=== PATIENT | male | born 1945 | race Caucasian/White ===

== ENCOUNTER 2019-11-26 11:11 | Inpatient (IN) ==
--- NOTE | 2019-11-26 11:55 | Emergency Department Note ---
History of Present Illness General Chief complaint: Neuro Symptoms/Deficit Stated complaint: NEURO SX, REF'D BY FITZ Time Seen by Provider: 11/26/19 11:37 Source: patient Mode of arrival: ambulatory History of Present Illness Maximum Pain Intensity: 0 This patient was sent over from his primary care physician's office after having a visual change in the right eye and concern for stroke. This started on Saturday and so he is about 4 days out now and is outside of the TPA or acute intervention window. 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 Denies headache or fall or tra augie. No difficulty speaking or swallowing. No numbness or weakness. He does have severe rheumatoid arthritis in his hands but says that his function is not different than normal. Denies neck pain or stiffness. No exposure to COVID. No fever chills. No nausea vomiting or diarrhea. No urinary symptoms. Home Medications Home Medications Medication Instructions Recorded Confirmed Type amlodipine 5 mg PO BID 08/06/19 11/26/19 History losartan 50 mg PO QAM 08/06/19 11/26/19 History metoprolol succinate 25 mg PO QPM 08/06/19 11/26/19 History naproxen [Naprosyn] 500 mg PO QAM 08/06/19 11/26/19 History omega 2-mpe-syb-fish oil [Fish Oil] 1 cap PO QAM 08/06/19 11/26/19 History prednisone 1 mg PO QAM 08/06/19 11/26/19 History prednisone 2 mg PO QPM 08/06/19 11/26/19 History rosuvastatin 40 mg PO QAM 08/06/19 11/26/19 History Allergies Allergy/AdvReac Type Severity Reaction Status Date / Time No Known Allergies Allergy Verified 11/26/19 12:19 Past Med/Surg History Medical History Chronic kidney disease stage III Chronic steroid use for RA History of blood clots X1 PINCHING SCIATIC NERVE, HX BACK SURGERY FOR...NO PROBLEMS SINCE Hyperlipidemia Hypertension Ischemic cardiomyopathy Most recent EF 40-44%. Follows with Dr. Kendrick. 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 Beliefs That Will Affect Care: None Current Living Situation: Spouse Other Information That Helps Us Care for You: No Feels Safe at Home: Yes Safety Concerns: Feels Safe At This Time Smoking Status: Former smoker Second Hand Exposure: Yes ; Hx Alcohol Use: No Hx Substance Use: No Review of Systems A total of 10 systems reviewed and were otherwise negative Physical Exam Vital Signs Vital Signs - 24 hr 11/26/19 11:15 11/26/19 11:25 11/26/19 12:32 Temperature 36.9 C Temperature Source Oral Pulse Rate 64 57 L 50 L Pulse Rate from SpO2 Sensor 50 L Respiratory Rate 18 21 14 Blood Pressure 134/85 191/96 H 190/88 H Blood Pressure Mean 101 123 111 Pulse Oximetry 97 97 Oxygen Delivery Method Room Air Room Air Sepsis Recent Fever Within 48 Hours No Sepsis New/Unexplained Change in Mental Status No Sepsis Action Taken by Nursing No Action Required 11/26/19 13:00 Temperature Temperature Source Pulse Rate 50 L Pulse Rate from SpO2 Sensor 49 L Respiratory Rate 16 Blood Pressure 166/84 H Blood Pressure Mean 104 Pulse Oximetry 95 Oxygen Delivery Method Room Air Sepsis Recent Fever Within 48 Hours Sepsis New/Unexplained Change in Mental Status Sepsis Action Taken by Nursing General: Well developed well nourished older male who appears in no acute distress, breathing comfortably on room air. Normal speech HEENT: Normal cephalic atraumatic. Pupils are equal round and reactive to light. Extraocular movements are intact. He does have a visual field cut in the right eye laterally when I checked his vision with moving fingers. Oropharynx is pink with moist mucous membranes. No swelling of the mouth lips or tongue. Neck: Supple with a midline trachea. No meningeal signs or stiffness, no JVD or bruits. No Stridor. Chest: Clear to auscultation bilaterally. No wheezes or rhonchi. No increased work of breathing. Heart: Regular rate and rhythm without murmurs or gallops. Abdomen: Soft nontender, nondistended without rebound guarding or rigidity. Extremities: No cyanosis clubbing or edema. No calf tenderness or assymetry. Chronic changes in the hands consistent with rheumatoid arthritis Spine/Back. Non tender to palpation. No CVA tenderness Skin: Good turgor without rashes. Neurologic exam: Cranial nerves two through 12 are intact. Motor and sensation are intact and symmetrical throughout. Course Administered Medications Gadobutrol (Gadavist 65ml) 6 ml IV ONCE PRN PRN Reason: Interaction Checking Stop: 11/30/19 14:20 Last Admin: 11/26/19 14:22 Dose: 6 ml Documented by: [id number] Heparin Sodium (Porcine) (Heparin Sodium (Porcine)) 5,000 units SQ Q8 AMOR Stop: 12/26/19 15:59 Last Admin: 11/26/19 17:26 Dose: 5,000 units Documented by: [id number] Cosigned by: [id number] Sodium Chloride (Nss 1000ml) 1,000 mls @ 80 mls/hr IV .[id number] AMOR Stop: 11/27/19 05:59 Last Admin: 11/26/19 17:27 Dose: 80 mls/hr Documented by: [id number] Discontinued Medications Amlodipine Besylate (Norvasc) 5 mg PO NOW ONE Stop: 11/26/19 17:17 Last Admin: 11/26/19 17:27 Dose: 5 mg Documented by: [id number] Aspirin (Aspirin Chew) 324 mg PO NOW STA Stop: 11/26/19 13:07 Last Admin: 11/26/19 13:19 Dose: 324 mg Documented by: [id number] Medical Decision Making Differential Diagnosis CVA, TIA, intracranial hemorrhage, retinal detachment, vitreous hemorrhage, optic neuritis, electrolyte or metabolic abnormalities Medical Records Attestation: I reviewed the patient's medical records. Home Medications Current Medication List: was personally reviewed by me Laboratory Data Attestation: I reviewed the patient's lab results. Result diagrams: 11/26/19 11:30 11/26/19 11:30 Lab Results 11/26/19 11/26/19 11/26/19 Range/Units 11:30 11:30 11:30 WBC 10.32 (4.8-10.8) K/uL RBC 5.39 (4.7-6.1) M/uL Hgb 16.7 (14.0-18.0) g/dL Hct 48.9 (42-52) % MCV 90.7 (80-100) fL MCH 31.0 (25-34) pg MCHC 34.2 (32-36) g/dL RDW Std Deviation 44.5 (36.4-46.3) fL RDW Coeff of Bright 13.5 (11.5-14.5) % Plt Count 227 (130-400) K/uL MPV 10.0 (7.4-10.4) fL Immature Gran % (Auto) 0.2 % Neut % (Auto) 80.0 % Lymph % (Auto) 10.1 % [place] % (Auto) 6.6 % Eos % (Auto) 2.7 % Baso % (Auto) 0.4 % Neut # (Auto) 8.26 H (1.4-6.5) K/uL Lymph # (Auto) 1.04 L (1.2-3.4) K/uL [place] # (Auto) 0.68 H (0.11-0.59) K/uL Eos # (Auto) 0.28 (0-0.5) K/uL Baso # (Auto) 0.04 (0-0.2) K/uL Immature Gran # (Auto) 0.02 (0.00-0.02) K/uL PT 10.4 (9.0-12.0) Seconds INR 1.0 (0.9-1.1) APTT 31.8 H (21.0-31.0) Seconds PTT Ratio 1.1 Sodium 141 (136-145) mmol/L Potassium 4.3 (3.5-5.1) mmol/L Chloride 110 H (98-107) mmol/L Carbon Dioxide 25 (21-32) mmol/L Anion Gap 6.0 (3-11) BUN 28 H (7-18) mg/dl Creatinine 1.84 H (0.6-1.4) mg/dl Est Cr Clr Drug Dosing 27.5 ml/min Est GFR ( Amer) 40.4 Est GFR (Non-Af Amer) 34.8 BUN/Creatinine Ratio 15.0 (10-20) Glucose 89 (70-99) mg/dl Estimat Average Glucose mg/dl Hemoglobin A1c (4.5-5.6) % Calcium 8.8 (8.5-10.1) mg/dl Magnesium 2.1 (1.8-2.4) mg/dl Total Bilirubin 0.7 (0.2-1) mg/dl AST 26 (15-37) U/L ALT 27 (12-78) U/L Alkaline Phosphatase 73 (45-117) U/L Troponin I < 0.015 (0-0.045) ng/ml Total Protein 7.6 (6.4-8.2) gm/dl Albumin 3.6 (3.4-5.0) gm/dl Globulin 4.0 (2.5-4.0) gm/dl Albumin/Globulin Ratio 0.9 (0.9-2) 06/25/20 Range/Units 11:30 WBC (4.8-10.8) K/uL RBC (4.7-6.1) M/uL Hgb (14.0-18.0) g/dL Hct (42-52) % MCV (80-100) fL MCH (25-34) pg MCHC (32-36) g/dL RDW Std Deviation (36.4-46.3) fL RDW Coeff of Bright (11.5-14.5) % Plt Count (130-400) K/uL MPV (7.4-10.4) fL Immature Gran % (Auto) % Neut % (Auto) % Lymph % (Auto) % [place] % (Auto) % Eos % (Auto) % Baso % (Auto) % Neut # (Auto) (1.4-6.5) K/uL Lymph # (Auto) (1.2-3.4) K/uL [place] # (Auto) (0.11-0.59) K/uL Eos # (Auto) (0-0.5) K/uL Baso # (Auto) (0-0.2) K/uL Immature Gran # (Auto) (0.00-0.02) K/uL PT (9.0-12.0) Seconds INR (0.9-1.1) APTT (21.0-31.0) Seconds PTT Ratio Sodium (136-145) mmol/L Potassium (3.5-5.1) mmol/L Chloride (98-107) mmol/L Carbon Dioxide (21-32) mmol/L Anion Gap (3-11) BUN (7-18) mg/dl Creatinine (0.6-1.4) mg/dl Est Cr Clr Drug Dosing ml/min Est GFR ( Amer) Est GFR (Non-Af Amer) BUN/Creatinine Ratio (10-20) Glucose (70-99) mg/dl Estimat Average Glucose 117 mg/dl Hemoglobin A1c 5.7 H (4.5-5.6) % Calcium (8.5-10.1) mg/dl Magnesium (1.8-2.4) mg/dl Total Bilirubin (0.2-1) mg/dl AST (15-37) U/L ALT (12-78) U/L Alkaline Phosphatase (45-117) U/L Troponin I (0-0.045) ng/ml Total Protein (6.4-8.2) gm/dl Albumin (3.4-5.0) gm/dl Globulin (2.5-4.0) gm/dl Albumin/Globulin Ratio (0.9-2) Imaging Data Attestation: I personally reviewed and interpreted this imaging study as follows: Radiologist's Impression: CT SCAN OF THE BRAIN WITHOUT IV CONTRAST CLINICAL HISTORY: Strokelike symptoms. COMPARISON STUDY: CT and MRI of the brain dated 11/09/2012. TECHNIQUE: Unenhanced axial CT scan of the brain is performed from the vertex to the skull base. A dose lowering technique was utilized adhering to the principles of ALARA. CT DOSE: 537.48 mGy.cm FINDINGS: Brain parenchyma: There are age-related involutional changes noting mild subcortical and periventricular microangiopathic change. Left occipital encephalomalacia is consistent with a remote infarct. There is no hemorrhage, mass effect, or evidence of acute territorial ischemia by CT criteria. Valdes- white matter differentiation is preserved. No extra-axial fluid collection is seen. Ventricles, sulci, cisterns: Prominent secondary to involutional change. Intracranial vasculature: There is atherosclerotic calcification of the cavernous carotid and vertebral arteries. Calvarium: Unremarkable. Sinuses and mastoids: The visualized paranasal sinuses are clear. The mastoid air cells are well pneumatized. Orbits: The bony orbits are grossly intact. There are bilateral ocular lens implants. IMPRESSION: 1. There is no hemorrhage, mass effect, or evidence of acute territorial ischemia by CT criteria. 2. Left occipital encephalomalacia is consistent with a remote infarct. This is new from the 2013 examinations. ECG Data Attestation: I personally reviewed and interpreted this ECG as follows: Indication: + weakness Rate (beats per minute): 53 Rhythm: + sinus bradycardia ECG Intervals/blocks: + Normal QT and + Normal [place] ECG [place]: + Normal ECG ST segments: + Normal ST segments and + T-wave inversions (Diffuse ST and T wave abnormalities are significantly improved compared to November 23, 2019) ECG Findings: no PACs and no PVCs Blood Pressure Blood Pressure Findings: Normal blood pressure Blood Pressure Disposition: elevated BP felt to be situational MDM Narrative This patient was sent over from doctor's office having visual change in the right in the lateral aspect. He looks well and has no other symptoms otherwise. IV access was established and he was placed on a night monitor a full cardiac work-up was obtained as well as neurologic work-up. He was reassessed frequently. CAT scan of his head does show an old occipital infarct that is new since the most recent CAT scan. I do not think it likely explains today symptoms however if he has had one he may have had extension or further infarct I do think he needs a full cardiac work-up. At this point, he is outside the window for acute intervention or TPA is been going on for several days. He has no significant electrolyte or metabolic abnormality. he has nothing to suggest acute coronary syndrome or arrhythmia. I did consult the [facility] hospitalist as I do think he should be admitted/observed for further cardiac work-up. Continuous cardiac monitoring. An order was placed for continuous cardiac monitoring. He was noted to be in sinus bradycardia at a rate of 55. Impression & Plan Acute CVA (cerebrovascular accident), Change in vision, Rheumatoid arteritis, Chronic steroid use Discharge Plan Visit Data *Final* Discharge Date/Time: 11/26/19 15:10 Chief Complaint: Neuro Symptoms/Deficit Stated Complaint: NEURO SX, REF'D BY FITZ ED Provider: Kvng Quintero Discharge Problem: Acute CVA (cerebrovascular accident), Change in vision, Rheumatoid arteritis, Chronic steroid use Patient Disposition: Admitted As Inpatient Discharge Instructions Interventions: ED Discharge Assessment Last Done: 11/26/19 15:10
[2019-11-26 11:59] LABS: Basophils # (auto) 0.04 K/uL (0-0.2); Basophils % (auto) 0.4 %; Eosinophils # (auto) 0.28 K/uL (0-0.5); Eosinophils % (auto) 2.7 %; Hematocrit (blood only) 48.9 % (42-52); Hemoglobin 16.7 g/dL (14.0-18.0); Immature Granulocytes # (auto) 0.02 K/uL (0.00-0.02); Immature Granulocytes % (auto) 0.2 %; Lymphocytes # (auto) 1.04 K/uL (1.2-3.4); Lymphocytes % (auto) 10.1 %; Mean Corpuscular Hgb Conc 34.2 g/dL (32-36); Mean Corpuscular Volume 90.7 fL (80-100); Monocytes # (auto) 0.68 K/uL (0.11-0.59); Monocytes % (auto) 6.6 %; Neutrophils # (auto) 8.26 K/uL (1.4-6.5); Platelet Count 227 K/uL (130-400); RDW Coefficient of Variation 13.5 % (11.5-14.5); RDW Standard Deviation 44.5 fL (36.4-46.3); Red Blood Count 5.39 M/uL (4.7-6.1); White Blood Count 10.32 K/uL (4.8-10.8)
--- NOTE | 2019-11-26 12:06 | CT Scan Report ---
CT SCAN OF THE BRAIN WITHOUT IV CONTRAST CLINICAL HISTORY: Strokelike symptoms. COMPARISON STUDY: CT and MRI of the brain dated 11/09/2012. TECHNIQUE: Unenhanced axial CT scan of the brain is performed from the vertex to the skull base. A do se lowering technique was utilized adhering to the principles of ALARA. CT DOSE: 537.48 mGy.cm FINDINGS: Brain parenchyma: There are age-related involutional changes noting mild subcortical and periventric ular microangiopathic change. Left occipital encephalomalacia is consistent with a remote infarct. Th ere is no hemorrhage, mass effect, or evidence of acute territorial ischemia by CT criteria. Valdes-whi te matter differentiation is preserved. No extra-axial fluid collection is seen. Ventricles, sulci, cisterns: Prominent secondary to involutional change. Intracranial vasculature: There is atherosclerotic calcification of the cavernous carotid and vertebr al arteries. Calvarium: Unremarkable. Sinuses and mastoids: The visualized paranasal sinuses are clear. The mastoid air cells are well pneu matized. Orbits: The bony orbits are grossly intact. There are bilateral ocular lens implants. IMPRESSION: 1. There is no hemorrhage, mass effect, or evidence of acute territorial ischemia by CT criteria. 2. Left occipital encephalomalacia is consistent with a remote infarct. This is new from the 2013 exa minations. ACT 112: Negative or not required by law. Electronically signed by: Chase Cantu M.D. 11/26/2019 12:05 PM
[2019-11-26 12:07] LABS: Alanine Aminotransferase 27 U/L (12-78); Albumin Level 3.6 gm/dl (3.4-5.0); Aspartate Aminotransferase 26 U/L (15-37); Blood Urea Nitrogen 28 mg/dl (7-18); Calcium 8.8 mg/dl (8.5-10.1); Carbon Dioxide 25 mmol/L (21-32); Chloride 110 mmol/L (98-107); Creatinine Clr Calc Pharmacy 27.5 ml/min; Est GFR (African American) 40.4; Est GFR (Non-African American) 34.8; Glucose 89 mg/dl (70-99); Magnesium 2.1 mg/dl (1.8-2.4); Potassium 4.3 mmol/L (3.5-5.1); Sodium 141 mmol/L (136-145)
[2019-11-26 12:12] LABS: Albumin Globulin Ratio 0.9 (0.9-2); Alkaline Phosphatase 73 U/L (45-117); Bilirubin,Total 0.7 mg/dl (0.2-1); Total Protein 7.6 gm/dl (6.4-8.2); Troponin I < 0.015 ng/ml (0-0.045)
[2019-11-26 12:13] LABS: Partial Thromboplastin Ratio 1.1; Partial Thromboplastin Time 31.8 Seconds (21.0-31.0); Prothrombin Time 10.4 Seconds (9.0-12.0)
[2019-11-26] MEDS ORDERED: ASPIRIN 81 MG CHEW PO STA (13:06)
[2019-11-26] MEDS ORDERED: POLYETHYLENE (MIRALAX) 17 GM PACK PO PRN (13:25)
[2019-11-26] MEDS ORDERED: ACETAMINOPHEN 325 MG TAB PO PRN (13:25)
[2019-11-26] MEDS ORDERED: ALUMINUM/MAGNESIUM SUSP 30 ML UDC PO PRN (13:25)
[2019-11-26] MEDS ORDERED: MAGNESIUM HYDROXIDE SUSP 30 ML UDC PO PRN (13:25)
[2019-11-26] MEDS ORDERED: ONDANSETRON INJ 2 MG/ML 2 ML VIAL IV PRN (13:25)
[2019-11-26] MEDS ORDERED: PHARMACIST DISCHARGE MED REC CONSULT PRN (13:29)
--- NOTE | 2019-11-26 13:35 | Neurology Consultation ---
Date of Consultation November 26, 2019 Assessment & Plan (1) Hypertension: (2) Acute ischemic left posterior cerebral artery (ALGORITHM DEVELOPER) stroke: A 74 year old male with past medical Hx significant for HTN, CKD, and rheumatoid arthritis on Prednisone admitted with a subacute left ALGORITHM DEVELOPER ischemic stroke. Etiology concerning for embolic source. On examination patient has RA arthritic changes in his hands and feet as well as a right visual field cut. I advised him he should NOT be driving due to his recent stroke. HA1c 5.7. UA Negative. - Recommend MRA head and neck imaging without contrast due to CKD. - Recommend dual antiplatelet therapy for 21-days for now, ASA 81 mg daily and Plavix 75 mg daily then ASA 81 mg daily. - Continue home high intensity Statin, Crestor 40 mg daily - Recommend checking TSH and lipid panel if not already ordered. - Recommend TTE with shunt as well as telemetry. May need to consider cardiac monitoring pending results of the above testing - Recommend normotension, Goal SBP<140, DBP < 90 mm hg - Will need formal VF testing as outpatient with ophthalmology - Neuro checks, VS Q4hr - PT/OT/SS Dr. Jo Ann Cade will be taking over the Neurology consultation service tomorrow. Patient will need follow up with Neurology in 8-weeks with myself or Jo Ann Esteban PA-C. I provided him with my contact information. (3) Right homonymous hemianopsia: (4) Rheumatoid arthritis: History of Present Illness Reason for Consultation: Right visual field deficit Requesting Physician: Dr. Golden Attending Physician: A 74-year-old male with a history of hypertension, hyperlipidemia, and rheumatoid arthritis on prednisone admitted from the emergency department with concern for acute right visual field loss. Symptom onset was 2-3 days ago noted well cutting grass. Denies any history of similar symptoms. His evaluated his PCP office today and sent over to the ED for concern for stroke. CT head noncontrast shows a left ALGORITHM DEVELOPER ischemic stroke which is new from 2012. Neurology was consulted for further evaluation. No prior known history of CVA. He is not on aspirin at home. Former smoker. Denies Hx of [place]. History of Present Illness A 74-year-old male with a history of hypertension, hyperlipidemia, chronic kidney disease,and rheumatoid arthritis on prednisone admitted from the emergency department with concern for acute right visual field loss. Symptom onset was 4 days ago noted well cutting grass. Denies any history of similar symptoms. His evaluated his PCP office today and sent over to the ED for concern for stroke. CT head noncontrast shows a left ALGORITHM DEVELOPER ischemic stroke which is new from 2012. Neurology was consulted for further evaluation. Allergies Allergy/AdvReac Type Severity Reaction Status Date / Time No Known Allergies Allergy Verified 11/26/19 12:19 Home Medications Home Medications Medication Instructions Recorded Confirmed Type amlodipine 5 mg PO BID 08/06/19 11/26/19 History losartan 50 mg PO QAM 08/06/19 11/26/19 History metoprolol succinate 25 mg PO QPM 08/06/19 11/26/19 History naproxen [Naprosyn] 500 mg PO QAM 08/06/19 11/26/19 History omega 1-twe-tse-fish oil [Fish Oil] 1 cap PO QAM 08/06/19 11/26/19 History prednisone 1 mg PO QAM 08/06/19 11/26/19 History prednisone 2 mg PO QPM 08/06/19 11/26/19 History rosuvastatin 40 mg PO QAM 08/06/19 11/26/19 History Patient History Medical History Chronic kidney disease stage III Chronic steroid use for RA History of blood clots X1 PINCHING SCIATIC NERVE, HX BACK SURGERY FOR...NO PROBLEMS SINCE Hyperlipidemia Hypertension Ischemic cardiomyopathy Most recent EF 40-44%. Follows with Dr. Kendrick. Rheumatoid arthritis follows with [facility] Surgical History History of back surgery History of elbow surgery RIGHT History of hernia surgery Family History Brother Family history of diabetes mellitus Mother Family history of diabetes mellitus Social History Preferred Language: Danish Communication Ability: Effective Physician Relations Specialist Required: No Beliefs That Will Affect Care: None Current Living Situation: Spouse Other Information That Helps Us Care for You: No Feels Safe at Home: Yes Safety Concerns: Feels Safe At This Time Smoking Status: Former smoker Second Hand Exposure: Yes ; Hx Alcohol Use: No Hx Substance Use: No Physical Exam Physical Exam: Constitutional: appears chronically ill, pleasant, no distess. developed Face: normocephalic and atraumatic Eyes: normal lids, normal conjunctiva Neck: supple Respiratory: normal effort Cardiovascular: normal pulses Abdomen: non distended Skin: no rash noted Psychiatric: normal mood and normal affect NEUROLOGIC EXAMINATION: Appearance: no acute distress Orientation: awake, alert and oriented x 3 Mental Status: alert Attention: normal Knowledge: poor Language: mild word finding difficulty, speech is non fluent Speech: no dysarthria Cranial Nerves: CN 2 - right homonymous hemianopia and pupils round, equal, reactive to light CN 3, 4, 6 - extra-ocular movements intact CN 5 - facial sensation intact CN 7 - no facial asymmetry CN 8 - intact hearing CN 9, 10 - palate symmetric CN 11 - good shoulder shrug CN 12 - tongue midline Gait: unsteady on his feet, feet are externally rotated Coordination: no ataxia with finger to nose testing Sensory: intact and symmetric to light touch Muscle Tone: normal Muscle exam: 5/5 thoughout with some giveway weakness Reflexes: Morales sign is Negative Results & Data Vital Signs (Past 12 Hours) Vital Signs Temp Pulse Resp BP Pulse Ox 11/26/19 13:00 50 L 16 166/84 H 95 11/26/19 12:32 50 L 14 190/88 H 97 11/26/19 11:25 57 L 21 191/96 H 11/26/19 11:15 36.9 C 64 18 134/[address] head noncontrast 1. There is no hemorrhage, mass effect, or evidence of acute territorial ischemia by CT criteria. 2. Left occipital encephalomalacia is consistent with a remote infarct. This is new from the 2013 examinations. MRI brain w/o: 1. Subacute infarct left occipital lobe. 2. Age-related atrophy and chronic small vessel change throughout both cerebral hemispheres.
--- NOTE | 2019-11-26 13:39 | History & Physical Report ---
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 lab Statin dose may need to be adjusted for goal LDL less than 70 (6) Rheumatoid arthritis: On chronic prednisonecontinued (7) Chronic kidney disease: Acute kidney disease on stage III CKD baseline creatinine 1.51.6 Creatinine 1.8 Ordered for gentle IV fluids Contrast studies/CTA of head and neck not ordered due to above Repeat lab in a.m. (8) Hypertension: Presented with hypertensive urgency, Home medications/antihypertensives resumed, PRN hydralazine for SBP more than 160 Monitoring telemetry CODE STATUS: Full code DVT prophylaxis: Subcu heparin Disposition: Ordered for PT OT eval, Expected to be discharged home when medically stable Patient will need outpatient neurology and ophthalmology follow-up History of Present Illness Chief Complaint: no able to see in right eye Primary Care Provider: Jose Pereira, This is a 74-year-old male with past medical history significant for hypertension CKD stage III rheumatoid arthritis on chronic prednisone, admitted to ER with complaint of right eye visual field cut since last Saturday. Patient was mowing her lawn, noted that he could not see through his right eye, during mowing the grass he noticed he missed almost 1 foot of area on right side. Had very mild suboccipital headache, No eye pain, did not had any weakness or paresthesia in any part of the body, no visual change on left eye. Patient did not seek any medical attention. Was seen at his primary care physician office at [facility], as a preop evaluation for elective right ankle surgery which is scheduled for December by Dr. Henderson. During the physical exam right eye visual field cut noted, patient was directed to ER for evaluation of possible stroke. In the ER patient is comfortable, denies of any pain, headache.no weakness or paresthesia Has persistent right eye visual field deficit CT of head noncontrast shows :. Left occipital encephalomalacia is consistent with a remote infarct. This is new from the 2013 examinations. MRI of brain showed subacute left occipital infarct Allergies Allergy/AdvReac Type Severity Reaction Status Date / Time No Known Allergies Allergy Verified 11/26/19 12:19 Home Medications Home Medications Medication Instructions Recorded Confirmed Type amlodipine 5 mg PO BID 08/06/19 11/26/19 History losartan 50 mg PO QAM 08/06/19 11/26/19 History metoprolol succinate 25 mg PO QPM 08/06/19 11/26/19 History naproxen [Naprosyn] 500 mg PO QAM 08/06/19 11/26/19 History omega 5-ftr-ppw-fish oil [Fish Oil] 1 cap PO QAM 08/06/19 11/26/19 History prednisone 1 mg PO QAM 08/06/19 11/26/19 History prednisone 2 mg PO QPM 08/06/19 11/26/19 History rosuvastatin 40 mg PO QAM 08/06/19 11/26/19 History Past Med/Surg History Medical History Chronic kidney disease stage III Chronic steroid use for RA History of blood clots X1 PINCHING SCIATIC NERVE, HX BACK SURGERY FOR...NO PROBLEMS SINCE Hyperlipidemia Hypertension Ischemic cardiomyopathy Most recent EF 40-44%. Follows with Dr. Kendrick. 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 Required: No Beliefs That Will Affect Care: None Current Living Situation: Spouse Other Information That Helps Us Care for You: No Feels Safe at Home: Yes Safety Concerns: Feels Safe At This Time Smoking Status: Former smoker Second Hand Exposure: Yes ; Hx Alcohol Use: No Hx Substance Use: No Review of Systems Review of Systems: All systems reviewed & are unremarkable except as noted in HPI & below Eyes: + loss of peripheral vision (on right eye ) and + problem reported visual field cut on right eye Cardiovascular: no chest pain, no dyspnea, no palpitations, no lightheadedness and no edema Neurologic: + problem reported (rt eye vision filed cut ); no gait abnormality, no localized weakness, no paralysis, no tremor(s), no dizziness, no abnormal speech and no confusion Physical Exam Constitutional: WD/WN, vitals as above no acute distress Eyes: PERRL, conjunctivae normal, anicteric sclerae + abnormal visual field confrontation (right sided visual field cut ) ENMT: external ear and nose normal, oropharynx normal Neck: trachea midline, no thyromegaly Respiratory: normal respiratory effort, lungs clear to auscultation Cardiovascular: RRR, no murmur, no edema Gastrointestinal (Abdomen): Percussion/Palpation: abdomen soft; abdomen nontender Musculoskeletal: Extremities: strength 5/5 throughout Gait: normal gait both hands /fingers are deformed due to advanced RA 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 There is no hemorrhage, mass effect, or evidence of acute territorial ischemia by CT criteria. 2. Left occipital encephalomalacia is consistent with a remote infarct. This is new from the 2013 examinations. MRI brain with and w/o contrast : 1. Subacute infarct left occipital lobe. 2. Age-related atrophy and chronic small vessel change throughout both cerebral hemispheres. Code Status & VTE Plan VTE Prophylaxis Plan VTE Prophylaxis will be ordered: Yes
[2019-11-26 14:08] LABS: Estimated Average Glucose 117 mg/dl; Hemoglobin A1C 5.7 % (4.5-5.6)
[2019-11-26] MEDS: GADOBUTROL 65ML VIAL IV PRN (14:22)
--- NOTE | 2019-11-26 14:36 | Magnetic Resonance Report ---
MR brain wo/w con CLINICAL HISTORY: stroke mental status change COMPARISON STUDY: 11/09/2012 TECHNIQUE: Utilizing a 1.5 Capri magnet and dedicated coil, multiplanar, multiecho imaging of the br ain was performed pre and postcontrast administration. IV administration of 8.5 mL of Gadavist contr ast was uneventful. FINDINGS: Diffusion images suggest a subacute left occipital infarct. Moderate chronic small vessel c hange throughout the periventricular deep white matter regions bilaterally. Mild age-related atrophy and chronic small vessel change. Ventricular system is midline. Sella and parasellar regions are unremarkable. Internal auditory canals are symmetric. Postcontrast images are considered negative for enhancing lesion. There is a trace amount of postcont rast enhancement of the left occipital infarct consistent with a subacute ischemic process. IMPRESSION: 1. Subacute infarct left occipital lobe. 2. Age-related atrophy and chronic small vessel change throughout both cerebral hemispheres. ACT 112: Negative or not required by law. The above report was generated using voice recognition software. It may contain grammatical, syntax or spelling errors. Electronically signed by: Dom Nicolas M.D. 11/26/2019 2:35 PM
[2019-11-26] MEDS ORDERED: AMLODIPINE BESYLATE 5 MG TAB PO ONE (17:16)
[2019-11-26] MEDS: HEPARIN SOD 5,000 UNIT/0.5 ML VIAL SQ SCH ×2 (17:26→23:14)
[2019-11-26] MEDS ORDERED: SODIUM CHLORIDE 0.9% 1000ML 1,000 ML IV SCH (17:30)
[2019-11-26] MEDS: HydrALAZINE HCL 20 MG/ML VIAL IV PRN (19:20)
[2019-11-26] MEDS ORDERED: AMLODIPINE BESYLATE 5 MG TAB PO SCH (21:00)
--- NOTE | 2019-11-26 21:55 | Electrocardiogram Report ---
Test Reason : Blood Pressure : / mmHG Vent. Rate : 053 BPM Atrial Rate : 053 BPM P-R Int : 184 ms QRS Dur : 156 ms QT Int : 462 ms P-R-T Axes : 058 -30 108 degrees QTc Int : 433 ms Sinus bradycardia Left axis deviation Left ventricular hypertrophy with repolarization abnormality Non-specific intra-ventricular conduction block Abnormal ECG When compared with ECG of 23-NOV-2019 08:41, VT interval has decreased T wave inversion no longer evident in Inferior leads T wave inversion less evident in Anterior leads Confirmed by Andreas Duran ([id number]) on 11/26/2019 9:55:06 PM Referred By: Isabell Johnston Confirmed By:Andreas Duran
[2019-11-26] MEDS: AMLODIPINE BESYLATE 5 MG TAB PO SCH (21:56)
[2019-11-26] MEDS: METOPROLOL SUCC 25MG EXT REL TAB PO SCH (21:57)
[2019-11-26] MEDS: predniSONE 1 MG TAB PO SCH (21:57)
[2019-11-27] MEDS: HEPARIN SOD 5,000 UNIT/0.5 ML VIAL SQ SCH ×3 (06:11→22:04)
[2019-11-27] MEDS: predniSONE 1 MG TAB PO SCH ×2 (07:33→22:03)
[2019-11-27] MEDS: ROSUVASTATIN CALCIUM 20 MG TAB PO SCH (07:33)
[2019-11-27] MEDS: OMEGA-3 (PURIFIED FISH OIL) 1 GM CAP PO SCH (07:34)
[2019-11-27] MEDS: ASPIRIN 81 MG ECTAB PO SCH (07:34)
[2019-11-27] MEDS: AMLODIPINE BESYLATE 5 MG TAB PO SCH ×2 (07:35→22:03)
[2019-11-27] MEDS: CLOPIDOGREL BISULFATE 75 MG TAB PO SCH (07:35)
[2019-11-27] MEDS: LOSARTAN POTASSIUM 50 MG TAB PO SCH (07:35)
[2019-11-27 08:18] LABS: BUN Creatinine Ratio 19.3 (10-20); Calcium 8.6 mg/dl (8.5-10.1); Creatinine Clr Calc Pharmacy 38.9 ml/min; Est GFR (African American) 66.3; Est GFR (Non-African American) 57.2; Potassium 4.4 mmol/L (3.5-5.1)
--- NOTE | 2019-11-27 12:47 | Magnetic Resonance Report ---
MR ANGIOGRAM OF THE BRAIN CLINICAL HISTORY: Occipital lobe infarct. COMPARISON STUDY: MRI of the brain dated 11/26/2019.. TECHNIQUE: 3-D [id number]-bh-[id number] MR angiography of the intracranial circulation is performed. 3-D tumble views are created and assessed. IV contrast was not administered for this examination. The examinati on is degraded by motion artifact. FINDINGS: The internal carotid arteries are patent bilaterally, as are the anterior and middle cerebr al arteries. The vertebrobasilar system and the right posterior cerebral artery are patent. There is loss of the left posterior cerebral artery flow void. The vertebral arteries are codominant. No aneur ysm is identified. Focal high-grade stenosis is identified within the M1 segment of the right middle cerebral artery. Signal abnormality is consistent with a left occipital lobe infarct. IMPRESSION: 1. There is loss of the left posterior cerebral artery flow void indicating slow flow versus occlusio n. 2. There is focal high-grade stenosis in the M1 segment of the right middle cerebral artery. ACT 112: Negative or not required by law. Electronically signed by: Chase Cantu M.D. 11/27/2019 12:45 PM
[2019-11-27] MEDS: GADOBUTROL 65ML VIAL IV PRN (12:56)
--- NOTE | 2019-11-27 13:06 | Magnetic Resonance Report ---
MR ANGIOGRAM OF THE NECK COMBO CLINICAL HISTORY: Left occipital lobe infarct. COMPARISON STUDY: Carotid artery ultrasound dated 11/10/2012. TECHNIQUE: Axial 3-D [id number]-[id number] MR angiography of the neck is performed. Subsequently, following the IV administration of 5 cc of Gadavist. Coronal MR angiogram of the neck was performed to corrobor ate the findings. 3-D reformats are created and assessed. All measurements were calculated based on N ASCET criteria. FINDINGS: Visualized portions of the thoracic aorta are normal in caliber. The aortic arch demonstrat es standard 3-vessel anatomy. The subclavian arteries are widely patent bilaterally. The right common carotid artery is widely patent. Atherosclerotic plaque causes less than 50% luminal narrowing at th e origin of the right internal carotid artery. The right internal carotid artery is otherwise patent. 3 external carotid artery is clear. The left common carotid artery is widely patent. Atherosclerotic plaque causes less than 50% luminal narrowing at the origin of the left internal carotid artery. The remainder of the internal carotid artery is patent. The left external carotid artery is clear. The v ertebral arteries are widely patent. The vertebral arteries are codominant. The left posterior cerebr al artery is occluded. Atherosclerotic irregularity is noted throughout the right posterior cerebral artery. Focal high-grade stenosis is seen within the M1 segment of the right middle cerebral artery. IMPRESSION: 1. Atherosclerotic plaque causes less than 50% luminal narrowing at the origins of the internal carot id arteries bilaterally. 2. The vertebral arteries are patent bilaterally. 3. Postcontrast imaging confirms occlusion of the left posterior cerebral artery. 4. High-grade stenosis is identified within the M1 segment of the right middle cerebral artery. There is also atherosclerotic irregularity of the right posterior cerebral artery. ACT 112: Negative or not required by law. Electronically signed by: Chase Cantu M.D. 11/27/2019 1:04 PM
--- NOTE | 2019-11-27 15:06 | Hospitalist Progress Note ---
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 -possible embolic MRA of the neck showed occlusion of the left posterior cerebral renal artery and atherosclerotic plaque less than 50% luminal narrowing at the origin of the internal jugular arteries bilaterally MRA of the head showed left posterior cerebral artery occlusion and there is focal high-grade stenosis in the M1 segment with origin of the middle cerebral artery Echo of the heart showed normal atrial size, no documentation of any atrial shunt, concentric LVH with EF of 55 to 60%, grade 1 diastolic dysfunction, moderate RV hypertrophy with normal right ventricular systolic function, there is moderate aortic valve sclerosis without significant stenosis. 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 lab Statin dose may need to be adjusted for goal LDL less than 70 (6) Rheumatoid arthritis: On chronic prednisonecontinued No acute arthritis at this time (7) Chronic kidney disease: Acute kidney disease on stage III CKD baseline creatinine 1.51.6 Creatinine 1.8 Ordered for gentle IV fluids Contrast studies/CTA of head and neck not ordered due to above Repeat lab in a.m. (8) Hypertension: Presented with hypertensive urgency, Home medications/antihypertensives resumed, PRN hydralazine for SBP more than 160 Monitoring telemetry CODE STATUS: Full code DVT prophylaxis: Subcu heparin Disposition: Ordered for PT OT eval, Expected to be discharged home when medically stable Patient will need outpatient neurology and ophthalmology follow-up Admission and Anticipated Discharge Date Admission Date: November 26, 2019 Subjective The patient was seen and examined in the telemetry unit He was admitted with acute right-sided visual loss without any associated neuro symptoms Noted to have subacute left occipital CVA Still complaining of visual problems but denies any other neuro symptoms No fever and/or chills, no chest pain or and/or palpitation, no nausea or vomiting Review of Systems Review of Systems: All systems reviewed and are unremarkable except as noted below Musculoskeletal: Has severe rheumatoid changes involving the joints but no acute arthritis in any of the joints Neurologic: no paralysis (No weakness involving any sides), no headache(s) and no confusion Physical Exam Physical Exam: Lying in bed comfortably Constitutional: well developed, well nourished and + ill appearing; no acute distress Eyes: PERRL, conjunctivae normal, anicteric sclerae ENMT: external ear and nose normal, oropharynx normal Neck: trachea midline, no thyromegaly Respiratory: normal respiratory effort; no respiratory distress Auscultation: lungs clear to auscultation bilaterally Cardiovascular: Rate/Rhythm: regular rate and regular rhythm Heart Sounds: no murmur Gastrointestinal (Abdomen): Inspection/Auscultation: abdomen normal to inspection and normal bowel sounds; abdomen not distended Percussion/Palpation: abdomen soft; abdomen nontender Musculoskeletal: No acute arthritis in any joints though he has severe rheumatoid changes involving multiple joints Neurologic: moves all extremities; no focal motor deficits Speech / Cognition: normal speech Motor/Sensory: no tremor Has right-sided visual loss Results & Data Results & Data ([facility]) Vital Signs (Past 12 Hours) Vital Signs Temp Pulse Pulse Resp BP Pulse Ox Pulse Ox 11/27/19 11:53 36.7 C 59 L 19 148/84 H 94 11/27/19 08:00 97 11/27/19 07:07 36.7 C 66 19 132/84 97 11/27/19 04:06 36.4 C L 64 18 144/82 H 94 Laboratory Results [facility] 11/27/19 07:13 Sodium 141 Potassium 4.4 Chloride 113 H Carbon Dioxide 22 BUN 24 H Creatinine 1.22 D Glucose 77 Calcium 8.6 Medications Administered Current Inpatient Medications Acetaminophen (Tylenol) 650 mg PO Q4H PRN PRN Reason: Pain or Fever Stop: 12/26/19 13:24 Al Hydrox/Mg Hydrox/Simethicone (Maalox) 15 ml PO Q4H PRN PRN Reason: Dyspepsia Stop: 12/26/19 13:24 Amlodipine Besylate (Norvasc) 5 mg PO BID [facility]OR Stop: 12/26/19 20:59 Last Admin: 11/27/19 07:35 Dose: 5 mg Documented by: Aspirin (Ecotrin Ectab) 81 mg PO [facility] Stop: 12/27/19 08:59 Last Admin: 11/27/19 07:34 Dose: 81 mg Documented by: Clopidogrel Bisulfate (Plavix) 75 mg PO [facility] Stop: 12/27/19 08:59 Last Admin: 11/27/19 07:35 Dose: 75 mg Documented by: Fish Oil (Fielding-3 (Purified Fish Oil)) [facility] [facility] [place]: 12/27/19 08:59 Last Admin: 11/27/19 07:34 Dose: 1 gm Documented by: Gadobutrol (Gadavist 65ml) 6 ml IV ONCE PRN PRN Reason: Interaction Checking Stop: 11/30/19 14:20 Last Admin: 11/27/19 12:56 Dose: 5 ml Documented by: Heparin Sodium (Porcine) (Heparin Sodium (Porcine)) 5,000 units SQ Q8 [facility] Stop: 12/26/19 15:59 Last Admin: 11/27/19 14:35 Dose: 5,000 units Documented by: Hydralazine HCl (Hydralazine Hcl) 10 mg IV Q8 PRN PRN Reason: SBP> 160 Stop: 12/26/19 17:18 Last Admin: 11/26/19 19:20 Dose: 10 mg Documented by: Losartan Potassium (Cozaar) [facility] [place]: 12/27/19 08:59 Last Admin: 11/27/19 07:35 Dose: 50 mg Documented by: Magnesium Hydroxide (Milk Of Magnesia) 30 ml PO Q12H PRN PRN Reason: Constipation Stop: 12/26/19 13:24 Metoprolol Succinate (Toprol Xl) 25 mg PO QPM [facility] Stop: 12/26/19 20:59 Last Admin: 11/26/19 21:57 Dose: 25 mg Documented by: Miscellaneous Information (Pharmacist Discharge Med Rec Consult) 1 ea N/A UD PRN PRN Reason: Consult Stop: 12/26/19 13:28 Ondansetron HCl (Zofran) 4 mg IV Q6H PRN PRN Reason: Nausea Stop: 12/26/19 13:24 Polyethylene Glycol (Miralax Powder Packet) 17 gm PO DAILY PRN PRN Reason: Constipation Stop: 12/26/19 13:24 Prednisone (Prednisone) 1 mg PO QAM [facility] Stop: 12/27/19 08:59 Last Admin: 11/27/19 07:33 Dose: 1 mg Documented by: Prednisone (Prednisone) 2 mg PO QPM [facility] Stop: 12/26/19 20:59 Last Admin: 11/26/19 21:57 Dose: 2 mg Documented by: Rosuvastatin Calcium (Crestor) 40 mg PO QAM [facility] Stop: 12/27/19 08:59 Last Admin: 11/27/19 07:33 Dose: 40 mg Documented by:
[2019-11-27] MEDS: HydrALAZINE HCL 20 MG/ML VIAL IV PRN (17:50)
--- NOTE | 2019-11-27 21:42 | Progress Notes ---
DATE: 11/27/2019 SUBJECTIVE: I am seeing the patient in followup of a left FOOD SAFETY COORDINATOR infarction. His MRA of the head and neck, which I have reviewed show absent flow in the left FOOD SAFETY COORDINATOR, indicating slow flow or occlusion, high-grade focal stenosis in the M1 segment of the right middle cerebral artery, atherosclerotic plaque causing less than 50% luminal narrowing of the bl internal carotids bilaterally. Vertebral arteries are patent bilaterally. The patient indicates that he is feeling well. No new neurologic symptoms. Sometimes vision is better or worse. There is occasional mild occipital headache. The patient's echocardiography did not show any evidence of an intraatrial shunt. There is moderate right ventricular hypertrophy, moderate aortic valve sclerosis, moderate mitral regurg, moderate to severe tricuspid regurg, atrial size is unremarkable. LDL 114. OBJECTIVE: GENERAL: The patient is awake and alert. VITAL SIGNS: Blood pressure 182/95, 56, 18, 36.6, 94%. There is a right homonymous hemianopsia. There is normal extraocular motility, facial symmetry. Speech is nondysarthric. The patient had significant ulnar deviation of the fingers bilaterally related to rheumatoid arthritis. Strength appears symmetric. Difhyb-zk-zpad is normal. Toe tapping is nondysmetric. IMPRESSION: Right posterior cerebral artery infarction. This is a common side of an embolic infarction. Recommend outpatient Zio patch. Dual antiplatelet therapy for 21 days, then aspirin 81 thereafter, goal LDL of 70 or less, gradual reduction of normotension. The patient will not be able to drive until he is cleared by ophthalmology and should see Dr. Martinez in the office post discharge. HOOD
[2019-11-27] MEDS: METOPROLOL SUCC 25MG EXT REL TAB PO SCH (22:02)
[2019-11-28] MEDS: HEPARIN SOD 5,000 UNIT/0.5 ML VIAL SQ SCH (05:34)
[2019-11-28 06:22] LABS: BUN Creatinine Ratio 25.5 (10-20); Creatinine Clr Calc Pharmacy 38.8 ml/min; Est GFR (African American) 67.7; Est GFR (Non-African American) 58.4; Potassium 4.4 mmol/L (3.5-5.1)
[2019-11-28] MEDS: AMLODIPINE BESYLATE 5 MG TAB PO SCH (08:06)
[2019-11-28] MEDS: ROSUVASTATIN CALCIUM 20 MG TAB PO SCH (08:06)
[2019-11-28] MEDS: LOSARTAN POTASSIUM 50 MG TAB PO SCH (08:07)
[2019-11-28] MEDS: ASPIRIN 81 MG ECTAB PO SCH (08:08)
[2019-11-28] MEDS: OMEGA-3 (PURIFIED FISH OIL) 1 GM CAP PO SCH (08:08)
[2019-11-28] MEDS: CLOPIDOGREL BISULFATE 75 MG TAB PO SCH (08:10)
[2019-11-28] MEDS: predniSONE 1 MG TAB PO SCH (08:10)
--- NOTE | 2019-11-28 12:37 | Hospitalist Progress Note ---
Date of Service November 28, 2019 Assessment & Plan (1) Acute CVA (cerebrovascular accident): Admitted with rt sided vision loss for past [address] head /MRI of brain : subacute left occipital CVA /acute ischemic left post cerebral artery([employer]) stroke -possible embolic MRA of the neck showed occlusion of the left posterior cerebral renal artery and atherosclerotic plaque less than 50% luminal narrowing at the origin of the internal jugular arteries bilaterally MRA of the head showed left posterior cerebral artery occlusion and there is focal high-grade stenosis in the M1 segment with origin of the middle cerebral artery Echo of the heart showed normal atrial size, no documentation of any atrial shunt, concentric LVH with EF of 55 to 60%, grade 1 diastolic dysfunction, moderate RV hypertrophy with normal right ventricular systolic function, there is moderate aortic valve sclerosis without significant stenosis. 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 lab Statin dose may need to be adjusted for goal LDL less than 70 (6) Rheumatoid arthritis: On chronic prednisonecontinued No acute arthritis at this time (7) Chronic kidney disease: Acute kidney disease on stage III CKD baseline creatinine 1.51.6 Creatinine 1.8 Ordered for gentle IV fluids Contrast studies/CTA of head and neck not ordered due to above Repeat lab in a.m.-kidney function stabilized (8) Hypertension: Presented with hypertensive urgency, Home medications/antihypertensives resumed, PRN hydralazine for SBP more than 160 Monitoring telemetry CODE STATUS: Full code DVT prophylaxis: Subcu heparin Disposition: Ordered for PT OT eval, Expected to be discharged home when medically stable Patient will need outpatient neurology and ophthalmology follow-up Discharge home this afternoon Admission and Anticipated Discharge Date Admission Date: November 26, 2019 Subjective The patient was seen and examined in the telemetry unit He was admitted with acute right-sided visual loss without any associated neuro symptoms Noted to have subacute left occipital CVA Still complaining of visual problems but denies any other neuro symptoms No fever and/or chills, no chest pain or and/or palpitation, no nausea or vomiting 11/28/2019 The patient was seen and examined in telemetry unit Still complains to have visual symptoms but feels a little improvement Denies any other symptoms and wants to go home Review of Systems Review of Systems: All systems reviewed and are unremarkable except as noted below Eyes: + loss of peripheral vision (on right eye ) and + problem reported visual field cut on right eye Musculoskeletal: Has severe rheumatoid changes involving the joints but no acute arthritis in any of the joints Physical Exam Physical Exam: Lying in bed comfortably Constitutional: well developed and well nourished; no acute distress and not ill appearing Eyes: PERRL, conjunctivae normal, anicteric sclerae ENMT: external ear and nose normal, oropharynx normal Neck: trachea midline, no thyromegaly Respiratory: normal respiratory effort; no respiratory distress Auscultation: lungs clear to auscultation bilaterally Cardiovascular: Rate/Rhythm: regular rate and regular rhythm Heart Sounds: no murmur Gastrointestinal (Abdomen): Inspection/Auscultation: abdomen normal to inspection and normal bowel sounds; abdomen not distended Percussion/Palpation: abdomen soft; abdomen nontender Musculoskeletal: Has severe rheumatoid arthritis changes in the hands and feet but no acute arthritis involving any joints Neurologic: moves all extremities; no focal motor deficits Speech / Cognition: normal speech Motor/Sensory: no tremor Has right visual clark loss loss of vision Results & Data Results & Data ([facility]) Vital Signs (Past 12 Hours) Vital Signs Temp Pulse Pulse Pulse Resp BP Pulse Ox 11/28/19 11:48 36.6 C 64 18 144/83 H 92 11/28/19 09:19 62 11/28/19 08:00 11/28/19 07:58 36.5 C 75 20 162/79 H 92 11/28/19 04:10 36.6 C 67 16 126/79 96 Pulse Ox 11/28/19 11:48 11/28/19 09:19 11/28/19 08:00 96 11/28/19 07:58 11/28/19 04:10 Laboratory Results [facility] [place] 11/28/19 04:28 Sodium 142 Potassium 4.4 Chloride 113 H Carbon Dioxide 22 BUN 31 H Creatinine 1.20 Glucose 88 Calcium 9.0 Medications Administered Current Inpatient Medications Acetaminophen (Tylenol) 650 mg PO Q4H PRN PRN Reason: Pain or Fever Stop: 12/26/19 13:24 Al Hydrox/Mg Hydrox/Simethicone (Maalox) 15 ml PO Q4H PRN PRN Reason: Dyspepsia Stop: 12/26/19 13:24 Amlodipine Besylate (Norvasc) 5 mg PO BID [facility] Stop: 12/26/19 20:59 Last Admin: 11/28/19 08:06 Dose: 5 mg Documented by: Aspirin ([facility]rin Ectab) [facility] [place]: 12/27/19 08:59 Last Admin: 11/28/19 08:08 Dose: 81 mg Documented by: Clopidogrel Bisulfate (Plavix) [facility] [place]: 12/27/19 08:59 Last Admin: 11/28/19 08:10 Dose: 75 mg Documented by: Fish Oil (Herreid-3 (Purified Fish Oil)) 1 [facility] [place]: 12/27/19 08:59 Last Admin: 11/28/19 08:08 Dose: 1 gm Documented by: Gadobutrol (Gadavist 65ml) 6 ml IV ONCE PRN PRN Reason: Interaction Checking Stop: 11/30/19 14:20 Last Admin: 11/27/19 12:56 Dose: 5 ml Documented by: Heparin Sodium (Porcine) (Heparin Sodium (Porcine)) 5,000 units SQ Q8 [facility] Stop: 12/26/19 15:59 Last Admin: 11/28/19 05:34 Dose: 5,000 units Documented by: Hydralazine HCl (Hydralazine Hcl) 10 mg IV Q8 PRN PRN Reason: SBP> 160 Stop: 12/26/19 17:18 Last Admin: 11/27/19 17:50 Dose: 10 mg Documented by: Losartan Potassium (Cozaar) 50 mg PO QAM [facility] Stop: 12/27/19 08:59 Last Admin: 11/28/19 08:07 Dose: 50 mg Documented by: Magnesium Hydroxide (Milk Of Magnesia) 30 ml PO Q12H PRN PRN Reason: Constipation Stop: 12/26/19 13:24 Metoprolol Succinate (Toprol Xl) 25 mg PO QPM [facility] Stop: 12/26/19 20:59 Last Admin: 11/27/19 22:02 Dose: 25 mg Documented by: Miscellaneous Information (Pharmacist Discharge Med Rec Consult) 1 ea N/A UD PRN PRN Reason: Consult Stop: 12/26/19 13:28 Ondansetron HCl (Zofran) 4 mg IV Q6H PRN PRN Reason: Nausea Stop: 12/26/19 13:24 Polyethylene Glycol (Miralax Powder Packet) 17 gm PO DAILY PRN PRN Reason: Constipation Stop: 12/26/19 13:24 Prednisone (Prednisone) [facility] [place]: 12/27/19 08:59 Last Admin: 11/28/19 08:10 Dose: 1 mg Documented by: Prednisone (Prednisone) 2 mg PO QPM [facility] Stop: 12/26/19 20:59 Last Admin: 11/27/19 22:03 Dose: 2 mg Documented by: Rosuvastatin Calcium (Crestor) 40 mg PO QAM [facility] Stop: 12/27/19 08:59 Last Admin: 11/28/19 08:06 Dose: 40 mg Documented by:
[2019-11-28] MEDS ORDERED: STROKE PATIENT DISCHARGE STA (12:43)
--- NOTE | 2019-11-28 14:01 | Pharmacy Report ---
Pharmacist Stroke Counseling - Date of Service November 28, 2019 - Scope: Pharmacy has been consulted to provide medication discharge counseling for this patient admitted with ischemic stroke as per the Pharmacist Discharge Counseling for Stroke Patients Protocol. - Medications on Discharge: Home Medications Medication Instructions Recorded Confirmed amlodipine 5 mg PO BID 08/06/19 11/26/19 losartan 50 mg PO QAM 08/06/19 11/26/19 metoprolol succinate 25 mg PO QPM 08/06/19 11/26/19 omega 0-inw-qiv-fish oil [Fish Oil] 1 cap PO QAM 08/06/19 11/26/19 prednisone 1 mg PO QAM 08/06/19 11/26/19 prednisone 2 mg PO QPM 08/06/19 11/26/19 rosuvastatin 40 mg PO QAM 08/06/19 11/26/19 New Rx's Medication Instructions Recorded aspirin 81 mg PO QAM 30 Days #30 tab 11/28/19 clopidogrel 75 mg PO QAM 20 Days #20 tab 11/28/19 - Action: The above medications, specifically ones for stroke treatment/prophylaxis, have been reviewed in detail with the patient prior to discharge. This includes indication, common adverse reactions, drug interactions, and medication administration. Medication counseling has been employed using the teach-back method to ensure understanding. - Outcome: The patient have demonstrated understanding of the medications. Additional comments: -reviewed medications with patient. -no questions or concerns Thank you for allowing pharmacy to be involved in the care of this patient. Please call [phone] with any additional questions
--- NOTE | 2019-11-29 07:51 | Discharge Summary ---
Date of Service November 29, 2019 Admission HPI Per Admitting Provider This is a 74-year-old male with past medical history significant for hypertension CKD stage III rheumatoid arthritis on chronic prednisone, admitted to ER with complaint of right eye visual field cut since last Saturday. Patient was mowing her lawn, noted that he could not see through his right eye, during mowing the grass he noticed he missed almost 1 foot of area on right side. Had very mild suboccipital headache, No eye pain, did not had any weakness or paresthesia in any part of the body, no visual change on left eye. Patient did not seek any medical attention. Was seen at his primary care physician office at [facility], as a preop evaluation for elective right ankle surgery which is scheduled for December by Dr. Henderson. During the physical exam right eye visual field cut noted, patient was directed to ER for evaluation of possible stroke. In the ER patient is comfortable, denies of any pain, headache.no weakness or paresthesia Has persistent right eye visual field deficit CT of head noncontrast shows :. Left occipital encephalomalacia is consistent with a remote infarct. This is new from the 2013 examinations. MRI of brain showed subacute left occipital infarct Admission Exam Per Admitting Provider Constitutional: WD/WN, vitals as above no acute distress Eyes: PERRL, conjunctivae normal, anicteric sclerae + abnormal visual field confrontation (right sided visual field cut ) ENMT: external ear and nose normal, oropharynx normal Neck: trachea midline, no thyromegaly Respiratory: normal respiratory effort, lungs clear to auscultation Cardiovascular: RRR, no murmur, no edema Gastrointestinal (Abdomen): Percussion/Palpation: abdomen soft; abdomen nontender Musculoskeletal: Extremities: strength 5/5 throughout Gait: normal gait both hands /fingers are deformed due to advanced RA normal hand interactive project manager strength Neurologic: PERRL, EOMI, accommodation nl, no face palsy, no dysarthria rt sided vision field deficit Principal Diagnosis Acute left occipital CVA, right homonymous hemianopia, rheumatoid arthritis on prednisone Discharge Exam Constitutional well developed and well nourished; no acute distress and not ill appearing Eyes PERRL, conjunctivae normal, anicteric sclerae ENMT external ear and nose normal, oropharynx normal Neck trachea midline, no thyromegaly Respiratory normal respiratory effort; no respiratory distress Auscultation: lungs clear to auscultation bilaterally Cardiovascular Rate/Rhythm: regular rate and regular rhythm Heart Sounds: no murmur Gastrointestinal (Abdomen) Inspection/Auscultation: abdomen normal to inspection and normal bowel sounds; abdomen not distended Percussion/Palpation: abdomen soft; abdomen nontender Neurologic moves all extremities; no focal motor deficits Speech / Cognition: normal speech Motor/Sensory: no tremor Discharge Data Allergies Allergy/AdvReac Type Severity Reaction Status Date / Time No Known Allergies Allergy Verified 11/26/19 12:19 Consultations 11/26/19 13:22 ED Decision to Admit Stat 11/26/19 13:25 Consult Neurology Routine 11/26/19 13:27 Consult Case Management - Discharge Planning Routine 11/26/19 13:29 Consult Case Management - Discharge Planning Routine Ordered Studies 11/26/19 11:48 CT head/brain wo con Stat 11/26/19 13:29 MR brain wo/w con Stat 11/27/19 12:15 MR angio head wo con Urgent MR angio neck wo/w con Urgent Hospital Course (1) Acute CVA (cerebrovascular accident): Admitted with rt sided vision loss for past [address] head /MRI of brain : subacute left occipital CVA /acute ischemic left post cerebral artery([employer]) stroke -possible embolic MRA of the neck showed occlusion of the left posterior cerebral renal artery and atherosclerotic plaque less than 50% luminal narrowing at the origin of the in ternal jugular arteries bilaterally MRA of the head showed left posterior cerebral artery occlusion and there is focal high-grade stenosis in the M1 segment with origin of the middle cerebral artery Echo of the heart showed normal atrial size, no documentation of any atrial shunt, concentric LVH with EF of 55 to 60%, grade 1 diastolic dysfunction, moderate RV hypertrophy with normal right ventricular systolic function, there is moderate aortic valve sclerosis without significant stenosis. 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 lab Statin dose may need to be adjusted for goal LDL less than 70 (6) Rheumatoid arthritis: On chronic prednisonecontinued No acute arthritis at this time (7) Chronic kidney disease: Acute kidney disease on stage III CKD baseline creatinine 1.51.6 Creatinine 1.8 Ordered for gentle IV fluids Contrast studies/CTA of head and neck not ordered due to above Repeat lab in a.m.-kidney function stabilized (8) Hypertension: Presented with hypertensive urgency, Home medications/antihypertensives resumed, PRN hydralazine for SBP more than 160 Monitoring telemetry CODE STATUS: Full code DVT prophylaxis: Subcu heparin Disposition: Ordered for PT OT eval, Expected to be discharged home when medically stable Patient will need outpatient neurology and ophthalmology follow-up Discharge home this afternoon Total Time Total Time Spent Total Time Spent (In Minutes): 35 minutes Total Time Includes: Examination of the Patient, Discharge Planning, Medication Reconciliation and Communication With Other Providers Discharge Plan Discharge Items Patient Disposition: Home - Self-Care Reason For Visit: STROKE LIKE SYMPTOMS Discharge Diagnosis: Acute left occipital CVA, right homonymous hemianopia, rheumatoid arthritis on prednisone Condition on Discharge: Good Activity: Resume your previous activity Non-emergency contact: Primary Care Provider Call non-emergency contact if: you have any medication questions and your symptoms worsen Follow-up/Referrals: Jose Pereira, [Primary Care Provider] - (Your doctor's office will call with an appointment. You will need to have a ZIO Patch placement from a doctor's office. Your follow-up with neurologist will be arranged as well.) Diet: Heart Healthy Addtl Attending Provider Instructions: Please take precaution to avoid falls Do not drive until being evaluated by your customer order clerk Take medications as prescribed Pending Studies at Discharge: No Stand-Alone Forms: Medications to Prevent Stroke, My TrewCap, Smoking Cessation Medications and DC Order Prescriptions: New clopidogrel 75 mg Tablet 75 mg PO QAM 20 Days Qty: 20 RF: 0 aspirin 81 mg Tablet,Delayed Release (Dr/Ec) 81 mg PO QAM 30 Days Qty: 30 RF: 0 Continued losartan 50 mg Tablet 50 mg PO QAM RF: 0 amlodipine 5 mg Tablet 5 mg PO BID RF: 0 prednisone 1 mg Tablet 1 mg PO QAM RF: 0 metoprolol succinate 25 mg Tablet Extended Release 24 Hr 25 mg PO QPM RF: 0 rosuvastatin 40 mg Tablet 40 mg PO QAM RF: 0 prednisone 2 mg Tablet,Delayed Release (Dr/Ec) 2 mg PO QPM RF: 0 omega 8-aqq-vyd-fish oil [Fish Oil] 1,000 mg (120 mg-180 mg) Capsule 1 cap PO QAM RF: 0 Discontinued naproxen [Naprosyn] 500 mg Tablet 500 mg PO QAM RF: 0 Discharge Orders: Discharge Order (Routine); Ordered 11/28/19 Ordered By: Jhonny Peters Admission Data Admit Date/Time: 11/26/19 13:26 Attending Provider: Jhonny Peters Admit Provider: Alicia Golden Primary Care Provider: Jose Pereira Other Providers: Alicia Golden ; Jo Ann Esteban ; Jaime Hager ; Jo Ann Cade ; Ford Martinez Other Interventions: Discharge Summary Assessment (RN) Last Done: 11/28/19 13:32 DC Date/Time DO NOT enter until pt leaves facility: 11/28/19 15:03
== END 2019-11-28 15:03 | disposition home or self-care (01) | DRG 65 ==
LOC: ED 11:11 → SUATTDRO 13:26 → 2S 13:26

== ENCOUNTER 2020-09-11 01:47 | Inpatient (IN) ==
[2020-09-11] MEDS ORDERED: ALBUT/IPRATROP 3MG/0.5MG NEB 3 ML VIAL NEB ONE (02:00)
[2020-09-11] MEDS ORDERED: methylPREDNISolone 125 MG/2 ML VIAL IV STA (02:03)
[2020-09-11] MEDS ORDERED: MAGNESIUM SULFATE / D5W 1 GM/100 ML BAG IV STA (02:03)
[2020-09-11] MEDS ORDERED: levoFLOXacin/D5W 750 MG/150 ML BAG IV STA (02:24)
[2020-09-11] MEDS ORDERED: PIPERACILLIN/TAZOBACTAM 4.5 GM/120 ML BAG IV ONE (02:24)
[2020-09-11] MEDS ORDERED: PIPERACILL/TAZOBAC CONSULT ACTIVE PRN (02:24)
[2020-09-11 02:33] LABS: Basophils # (auto) 0.04 K/uL (0-0.2); Basophils % (auto) 0.4 %; Eosinophils # (auto) 0.16 K/uL (0-0.5); Eosinophils % (auto) 1.5 %; Hemoglobin 15.7 g/dL (14.0-18.0); Immature Granulocytes # (auto) 0.02 K/uL (0.00-0.02); Immature Granulocytes % (auto) 0.2 %; Lymphocytes # (auto) 0.98 K/uL (1.2-3.4); Lymphocytes % (auto) 9.1 %; Mean Corpuscular Hemoglobin 31.3 pg (25-34); Mean Corpuscular Hgb Conc 34.9 g/dL (32-36); Mean Corpuscular Volume 89.6 fL (80-100); Mean Platelet Volume 11.1 fL (7.4-10.4); Monocytes # (auto) 0.75 K/uL (0.11-0.59); Monocytes % (auto) 6.9 %; Neutrophils # (auto) 8.86 K/uL (1.4-6.5); Neutrophils % (auto) 81.9 %; Platelet Count 234 K/uL (130-400); RDW Coefficient of Variation 13.8 % (11.5-14.5); RDW Standard Deviation 45.7 fL (36.4-46.3); Red Blood Count 5.02 M/uL (4.7-6.1); White Blood Count 10.81 K/uL (4.8-10.8)
--- NOTE | 2020-09-11 02:46 | Emergency Department Note ---
Impression & Plan Acute hypoxemic respiratory failure, Pneumonia, Acute renal failure ED Provider Note NAME: SARITA RODGERS AGE: 75 SEX: M : 1945 ARRIVES VIA: Family Vehicle INFORMANT: Patient, ED PROVIDER(S): Guillermo Hanks MD CHIEF COMPLAINT: Shortness of Breath HPI: This is a 75-year-old male who presents emergency department complaining of shortness of breath. The patient denies any chest pain or abdominal pain. He reports he began becoming short of breath on Saturday. He reports any exertion makes the shortness of breath worse however rest makes it better. He has not taken anything for the shortness of breath. The patient does not normally on oxygen at home. Upon arrival to the emergency department the patient is 85% on room air. ROS: See above HPI for pertinent positives & negatives. A total of 10 systems reviewed and were otherwise negative. PAST MEDICAL HISTORY: See Below PAST SURGICAL HISTORY: See Below FAMILY HISTORY: See Below SOCIAL HISTORY: See Below HOME MEDICATIONS: See Below ALLERGIES: See Below VITALS: See Below PHYSICAL EXAMINATION: VITAL SIGNS - Vital signs and nursing notes were reviewed. GENERAL - 75-year-old male appearing extremely winded, speaking in three word sentences. SKIN - Without rashes. HEAD - NC/AT. EYES - PERRL with EOMI bilaterally. Sclera anicteric. Palpebral conjunctiva pink and moist with no injection noted. EARS - No deformities of external structures noted on gross examination bilaterally. NOSE - Midline and without cyanosis. No epistaxis or purulent drainage noted. Septum midline without deviation or septal hematoma noted. MOUTH/OROPHARYNX - Without perioral cyanosis. Buccal mucosa pink and moist and without leukoplakia. Tongue midline with equal elevation of palate bilaterally. No tonsillar hypertrophy, erythema, or exudates noted. NECK - Neck with FROM. Supple to palpation. lymphadenopathy noted. No nuchal rigidity. LUNGS - Chest wall symmetric without accessory muscle use, intercostals retractions, or central cyanosis. Normal vesicular breath sounds CTA B/L. No wheezes, rales, or rhonchi appreciated. CARDIAC - RRR with S1/S2. No murmur, rubs, or gallops appreciated. ABDOMEN - Abdominal contour without pulsations or visible masses. BS normoactive all four quadrants. No tenderness, palpable masses, hepatosplenomegaly, or ascites noted. EXTREMITIES - No clubbing or peripheral cyanosis. No pretibial edema present. +3/5 radial, posterior tibial, and dorsalis pedis pulses palpated throughout. +5/5 strength noted in UE/LE bilaterally. NEUROLOGIC - Cranial nerves II through XII grossly intact. Sensory intact to light touch throughout. Patellar reflexes +2/4. PSYCH - A&Ox3 and cooperates fully with examiner. Pt is very pleasant and interacts well with examiner. MEDICAL DECISION MAKING: Patient was seen and evaluated as above in room C10. Review was performed of nursing notes and vital signs. I did review pertinent previous visits and patient history. After obtaining a thorough history and physical examination the above work up was performed. While in the department, I personally reevaluated the patient several times and each time the patient was found to be resting comfortably. The patient was educated upon management, educated upon todays findings/results, educated upon importance of follow up from today's visit, educated upon symptoms in which to return, had questions answered prior to discharge, verbalized understanding, and was discharged home in good condition. An order was placed for continuous cardiac monitoring. The monitor shows a rate of 77 with Normal Sinus rhythm. The patient was evaluated during a period of high volume and high acuity during the global COVID-19 pandemic, and that diagnosis was suspected/considered upon their initial presentation. Their evaluation, treatment and testing was consistent with current guidelines for patients who present with complaints or symptoms that may be related to COVID-19. Patient was seen while provider was wearing PPE. Triage Nursing notes reviewed. Prior medical records reviewed Vital Signs: reviewed and remarkable for no significant abnormalities Differential diagnosis: Reactive airway disease, pneumonia, pneumothorax, COPD, CHF, infections, cardiac ischemia, pulmonary embolism, musculoskeletal, gastrointestinal, as well as other pathologies. ER treatment provided: See below Diagnostics interpreted by me: ECG: EKG shows a normal sinus rhythm left ventricular hypertrophy with QRS widening and repolarization abnormality no ST elevation or depression QTC is 494 ventricular rate is 81 EKG is compared to 11/26/2019 and is unchanged. Laboratory studies: As stated above and show below. Imaging studies: 1 view of the chest was interpreted by me is concerning for right lower lobe pneumonia CT chest without contrast: Moderate bilateral pleural effusions with adjacent atelectasis. Opacities within the basilar left and right lower lobes compatible with an acute infe ctious inflammatory process such as pneumonia as suspected by the history. Prominent mediastinal lymph nodes are presumably reactive. Coronary artery and aortic valvular calcifications. Scoliosis. CT abdomen pelvis without contrast: No acute findings within the abdomen or pelvis. No hydronephrosis or nephrolithiasis. Atrophy of the right kidney. Cortical scarring of the interpolar region of the right left kidney. 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 The abdominal aorta is ectatic with prominent atherosclerotic calcifications of the distal aorta and iliac arteries. Atherosclerotic calcifications and ectasia of bilateral iliac arteries. Diverticulosis of the sigmoid colon without evidence of acute diverticulitis. Small fat-containing right inguinal hernia. Levoscoliosis of the lumbar spine. Consultation(s): Internal Medicine Critical Care: I have personally spent greater than 90 minutes of critical care time in the direct management of this patient. This includes bedside care, interpretation of diagnostic studies, and testing, discussion with consultants, patient, and family members, and other required patient management activities. This 90 minutes is in excess of all separately billable procedures. Past Med/Surg History Medical History (Updated 09/11/20 @ 06:33 by Guillermo Hanks MD) Chronic kidney disease stage III Chronic steroid use for RA History of blood clots X1 PINCHING SCIATIC NERVE, HX BACK SURGERY FOR...NO PROBLEMS SINCE Hyperlipidemia Hypertension Ischemic cardiomyopathy Most recent EF 40-44%. Follows with Dr. Kendrick. 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 Beliefs That Will Affect Care: None Current Living Situation: Spouse Current Living Situation Comment: Other Information That Helps Us Care for You: No Feels Safe at Home: Yes Safety Concerns: Feels Safe At This Time Assistive Devices: None Allergies Allergies Allergy/AdvReac Type Severity Reaction Status Date / Time PATIENCE Inhibitors Allergy Intermediate Cough Verified 09/11/20 03:12 Home Meds Home Medications Medication Instructions Recorded Confirmed amlodipine 10 mg PO DAILY 08/06/19 09/11/20 metoprolol succinate 25 mg PO QPM 08/06/19 09/11/20 prednisone 3 - 4 mg PO QAM 08/06/19 09/11/20 rosuvastatin 40 mg PO QAM 08/06/19 09/11/20 aspirin 81 mg PO QAM 09/11/20 09/11/20 furosemide [Lasix] 20 mg PO Q OTHER DAY 09/11/20 09/11/20 hydralazine 25 mg PO TID 09/11/20 09/11/20 naproxen 500 mg PO DAILY 09/11/20 09/11/20 Results & Data (ED) Vital Signs Vital Signs - 24 hr 09/11/20 01:52 09/11/20 02:00 09/11/20 02:11 Temperature 36.5 C Temperature Source Temporal Artery Scan Pulse Rate 95 H 88 Pulse Rate [Right Apical] Respiratory Rate 24 18 Respiratory Effort / Characteristics Spontaneous Accessory Muscle Use Respiratory Depth Shallow Normal Respiratory Pattern Regular Blood Pressure 163/95 H Blood Pressure [Right Arm] Blood Pressure Mean 117 Blood Pressure Mean [Right Arm] Blood Pressure Position [Right Arm] Pulse Oximetry 85 L 92 95 Oxygen Delivery Method Room Air Nasal Cannula Oxygen Flow Rate 4 Fraction of Inspired Oxygen 50 Sepsis Recent Fever Within 48 Hours No Sepsis New/Unexplained Change in Mental Status No Sepsis Action Taken by Nursing No Action Required 09/11/20 02:27 09/11/20 02:29 09/11/20 02:34 Temperature Temperature Source Pulse Rate Pulse Rate [Right Apical] 74 77 Respiratory Rate 21 20 Respiratory Effort / Characteristics Non-Labored Spontaneous Spontaneous Non-Labored Spontaneous Respiratory Depth Normal Normal Respiratory Pattern Regular Blood Pressure Blood Pressure [Right Arm] 162/96 H Blood Pressure Mean Blood Pressure Mean [Right Arm] 118 Blood Pressure Position [Right Arm] Sitting Pulse Oximetry 95 94 Oxygen Delivery Method BiPAP BiPAP BiPAP Oxygen Flow Rate Fraction of Inspired Oxygen 50 Sepsis Recent Fever Within 48 Hours Sepsis New/Unexplained Change in Mental Status Sepsis Action Taken by Nursing 09/11/20 02:39 Temperature Temperature Source Pulse Rate Pulse Rate [Right Apical] Respiratory Rate 18 Respiratory Effort / Characteristics Non-Labored Spontaneous Respiratory Depth Respiratory Pattern Blood Pressure Blood Pressure [Right Arm] Blood Pressure Mean Blood Pressure Mean [Right Arm] Blood Pressure Position [Right Arm] Pulse Oximetry 94 Oxygen Delivery Method BiPAP Oxygen Flow Rate Fraction of Inspired Oxygen Sepsis Recent Fever Within 48 Hours Sepsis New/Unexplained Change in Mental Status Sepsis Action Taken by Nursing Laboratory Data Result diagrams: 09/11/20 02:20 09/11/20 02:20 Lab Results 09/11/20 09/11/20 09/11/20 Range/Units 02:00 02:00 02:20 WBC 10.81 H (4.8-10.8) K/uL RBC 5.02 (4.7-6.1) M/uL Hgb 15.7 (14.0-18.0) g/dL Hct 45.0 (42-52) % MCV 89.6 (80-100) fL MCH 31.3 (25-34) pg MCHC 34.9 (32-36) g/dL RDW Std Deviation 45.7 (36.4-46.3) fL RDW Coeff of Bright 13.8 (11.5-14.5) % Plt Count 234 (130-400) K/uL MPV 11.1 H (7.4-10.4) fL Immature Gran % (Auto) 0.2 % Neut % (Auto) 81.9 % Lymph % (Auto) 9.1 % [place] % (Auto) 6.9 % Eos % (Auto) 1.5 % Baso % (Auto) 0.4 % Neut # (Auto) 8.86 H (1.4-6.5) K/uL Lymph # (Auto) 0.98 L (1.2-3.4) K/uL [place] # (Auto) 0.75 H (0.11-0.59) K/uL Eos # (Auto) 0.16 (0-0.5) K/uL Baso # (Auto) 0.04 (0-0.2) K/uL Immature Gran # (Auto) 0.02 (0.00-0.02) K/uL PT (9.0-12.0) Seconds INR (0.9-1.1) APTT (21.0-31.0) Seconds PTT Ratio ABG pH (7.35-7.45) ABG pCO2 (35-46) mmHg ABG pO2 (80-95) mmHg ABG HCO3 (19-24) mmol/L ABG O2 Saturation (90-95) % ABG Base Excess (-9-1.8) mEq/L Michael Test (Pos) VBG pH (7.36-7.41) VBG pCO2 (38-50) mmHg VBG pO2 mmHg VBG HCO3 mmol/L VBG O2 Saturation % VBG Base Excess mEq/L Oxygen Given Sodium (136-145) mmol/L Potassium (3.5-5.1) mmol/L Chloride (98-107) mmol/L Carbon Dioxide (21-32) mmol/L Anion Gap (3-11) BUN (7-18) mg/dl Creatinine (0.6-1.4) mg/dl Est Cr Clr Drug Dosing ml/min Est GFR ( Amer) Est GFR (Non-Af Amer) BUN/Creatinine Ratio (10-20) Glucose (70-99) mg/dl Lactate (0.4-2.0) mmol/L Calcium (8.5-10.1) mg/dl Magnesium (1.8-2.4) mg/dl Total Bilirubin (0.2-1) mg/dl AST (15-37) U/L ALT (12-78) U/L Alkaline Phosphatase (45-117) U/L Total Creatine Kinase (39-308) U/L CK-MB (CK-2) (0.5-3.6) ng/ml CK/CKMB % Calc (0-3.0) Troponin I (0-0.045) ng/ml NT-Pro-B Natriuret Pep (0-1800) pg/ml Total Protein (6.4-8.2) gm/dl Albumin (3.4-5.0) gm/dl Globulin (2.5-4.0) gm/dl Albumin/Globulin Ratio (0.9-2) Procalcitonin (0-0.5) ng/ml Random Cortisol mcg/dl COVID-19 Eval Order [facility]FluRsv at [facility] SARS-CoV-2 (PCR) NEGATIVE (Negative) Influenza Type A (PCR) Negative (Neg) Influenza Type B (PCR) Negative (Neg) RSV (RT-PCR) Negative (Neg) 09/11/20 09/11/20 09/11/20 Range/Units 02:20 02:20 02:20 WBC (4.8-10.8) K/uL RBC (4.7-6.1) M/uL Hgb (14.0-18.0) g/dL Hct (42-52) % MCV (80-100) fL MCH (25-34) pg MCHC (32-36) g/dL RDW Std Deviation (36.4-46.3) fL RDW Coeff of Bright (11.5-14.5) % Plt Count (130-400) K/uL MPV (7.4-10.4) fL Immature Gran % (Auto) % Neut % (Auto) % Lymph % (Auto) % [place] % (Auto) % Eos % (Auto) % Baso % (Auto) % Neut # (Auto) (1.4-6.5) K/uL Lymph # (Auto) (1.2-3.4) K/uL [place] # (Auto) (0.11-0.59) K/uL Eos # (Auto) (0-0.5) K/uL Baso # (Auto) (0-0.2) K/uL Immature Gran # (Auto) (0.00-0.02) K/uL PT 10.3 (9.0-12.0) Seconds INR 1.0 (0.9-1.1) APTT 30.2 (21.0-31.0) Seconds PTT Ratio 1.1 ABG pH (7.35-7.45) ABG pCO2 (35-46) mmHg ABG pO2 (80-95) mmHg ABG HCO3 (19-24) mmol/L ABG O2 Saturation (90-95) % ABG Base Excess (-9-1.8) mEq/L Michael Test (Pos) VBG pH (7.36-7.41) VBG pCO2 (38-50) mmHg VBG pO2 mmHg VBG HCO3 mmol/L VBG O2 Saturation % VBG Base Excess mEq/L Oxygen Given Sodium 138 (136-145) mmol/L Potassium 4.5 (3.5-5.1) mmol/L Chloride 109 H (98-107) mmol/L Carbon Dioxide 20 L (21-32) mmol/L Anion Gap 9.0 (3-11) BUN 48 H (7-18) mg/dl Creatinine 2.71 H (0.6-1.4) mg/dl Est Cr Clr Drug Dosing 17.6 ml/min Est GFR ( Amer) 25.1 Est GFR (Non-Af Amer) 21.7 BUN/Creatinine Ratio 17.6 (10-20) Glucose 134 H (70-99) mg/dl Lactate 1.7 (0.4-2.0) mmol/L Calcium 8.6 (8.5-10.1) mg/dl Magnesium 2.4 (1.8-2.4) mg/dl Total Bilirubin 0.6 (0.2-1) mg/dl AST 43 H (15-37) U/L ALT 53 (12-78) U/L Alkaline Phosphatase 80 (45-117) U/L Total Creatine Kinase 127 (39-308) U/L CK-MB (CK-2) 3.6 (0.5-3.6) ng/ml CK/CKMB % Calc 2.8 (0-3.0) Troponin I 0.679 H* (0-0.045) ng/ml NT-Pro-B Natriuret Pep 18295 H (0-1800) pg/ml Total Protein 7.8 (6.4-8.2) gm/dl Albumin 3.3 L (3.4-5.0) gm/dl Globulin 4.5 H (2.5-4.0) gm/dl Albumin/Globulin Ratio 0.7 L (0.9-2) Procalcitonin (0-0.5) ng/ml Random Cortisol mcg/dl COVID-19 Eval Order SARS-CoV-2 (PCR) (Negative) Influenza Type A (PCR) (Neg) Influenza Type B (PCR) (Neg) RSV (RT-PCR) (Neg) 09/11/20 09/11/20 09/11/20 Range/Units 02:20 02:20 03:22 WBC (4.8-10.8) K/uL RBC (4.7-6.1) M/uL Hgb (14.0-18.0) g/dL Hct (42-52) % MCV (80-100) fL MCH (25-34) pg MCHC (32-36) g/dL RDW Std Deviation (36.4-46.3) fL RDW Coeff of Bright (11.5-14.5) % Plt Count (130-400) K/uL MPV (7.4-10.4) fL Immature Gran % (Auto) % Neut % (Auto) % Lymph % (Auto) % [place] % (Auto) % Eos % (Auto) % Baso % (Auto) % Neut # (Auto) (1.4-6.5) K/uL Lymph # (Auto) (1.2-3.4) K/uL [place] # (Auto) (0.11-0.59) K/uL Eos # (Auto) (0-0.5) K/uL Baso # (Auto) (0-0.2) K/uL Immature Gran # (Auto) (0.00-0.02) K/uL PT (9.0-12.0) Seconds INR (0.9-1.1) APTT (21.0-31.0) Seconds PTT Ratio ABG pH (7.35-7.45) ABG pCO2 (35-46) mmHg ABG pO2 (80-95) mmHg ABG HCO3 (19-24) mmol/L ABG O2 Saturation (90-95) % ABG Base Excess (-9-1.8) mEq/L Michael Test (Pos) VBG pH 7.38 (7.36-7.41) VBG pCO2 34 L (38-50) mmHg VBG pO2 46 mmHg VBG HCO3 20 mmol/L VBG O2 Saturation 79.6 % VBG Base Excess -4.6 mEq/L Oxygen Given Sodium (136-145) mmol/L Potassium (3.5-5.1) mmol/L Chloride (98-107) mmol/L Carbon Dioxide (21-32) mmol/L Anion Gap (3-11) BUN (7-18) mg/dl Creatinine (0.6-1.4) mg/dl Est Cr Clr Drug Dosing ml/min Est GFR ( Amer) Est GFR (Non-Af Amer) BUN/Creatinine Ratio (10-20) Glucose (70-99) mg/dl Lactate (0.4-2.0) mmol/L Calcium (8.5-10.1) mg/dl Magnesium (1.8-2.4) mg/dl Total Bilirubin (0.2-1) mg/dl AST (15-37) U/L ALT (12-78) U/L Alkaline Phosphatase (45-117) U/L Total Creatine Kinase (39-308) U/L CK-MB (CK-2) (0.5-3.6) ng/ml CK/CKMB % Calc (0-3.0) Troponin I (0-0.045) ng/ml NT-Pro-B Natriuret Pep (0-1800) pg/ml Total Protein (6.4-8.2) gm/dl Albumin (3.4-5.0) gm/dl Globulin (2.5-4.0) gm/dl Albumin/Globulin Ratio (0.9-2) Procalcitonin 0.49 (0-0.5) ng/ml Random Cortisol 32.61 mcg/dl COVID-19 Eval Order SARS-CoV-2 (PCR) (Negative) Influenza Type A (PCR) (Neg) Influenza Type B (PCR) (Neg) RSV (RT-PCR) (Neg) 09/11/20 09/11/20 Range/Units 03:32 03:35 WBC (4.8-10.8) K/uL RBC (4.7-6.1) M/uL Hgb (14.0-18.0) g/dL Hct (42-52) % MCV (80-100) fL MCH (25-34) pg MCHC (32-36) g/dL RDW Std Deviation (36.4-46.3) fL RDW Coeff of Bright (11.5-14.5) % Plt Count (130-400) K/uL MPV (7.4-10.4) fL Immature Gran % (Auto) % Neut % (Auto) % Lymph % (Auto) % [place] % (Auto) % Eos % (Auto) % Baso % (Auto) % Neut # (Auto) (1.4-6.5) K/uL Lymph # (Auto) (1.2-3.4) K/uL [place] # (Auto) (0.11-0.59) K/uL Eos # (Auto) (0-0.5) K/uL Baso # (Auto) (0-0.2) K/uL Immature Gran # (Auto) (0.00-0.02) K/uL PT (9.0-12.0) Seconds INR (0.9-1.1) APTT (21.0-31.0) Seconds PTT Ratio ABG pH 7.43 (7.35-7.45) ABG pCO2 30 L (35-46) mmHg ABG pO2 67 L (80-95) mmHg ABG HCO3 19 (19-24) mmol/L ABG O2 Saturation 94.3 (90-95) % ABG Base Excess -3.9 (-9-1.8) mEq/L Michael Test Pos (Pos) VBG pH (7.36-7.41) VBG pCO2 (38-50) mmHg VBG pO2 mmHg VBG HCO3 mmol/L VBG O2 Saturation % VBG Base Excess mEq/L Oxygen Given 50% FI02 Sodium (136-145) mmol/L Potassium (3.5-5.1) mmol/L Chloride (98-107) mmol/L Carbon Dioxide (21-32) mmol/L Anion Gap (3-11) BUN (7-18) mg/dl Creatinine (0.6-1.4) mg/dl Est Cr Clr Drug Dosing ml/min Est GFR ( Amer) Est GFR (Non-Af Amer) BUN/Creatinine Ratio (10-20) Glucose (70-99) mg/dl Lactate (0.4-2.0) mmol/L Calcium (8.5-10.1) mg/dl Magnesium (1.8-2.4) mg/dl Total Bilirubin (0.2-1) mg/dl AST (15-37) U/L ALT (12-78) U/L Alkaline Phosphatase (45-117) U/L Total Creatine Kinase (39-308) U/L CK-MB (CK-2) (0.5-3.6) ng/ml CK/CKMB % Calc (0-3.0) Troponin I 0.647 H* (0-0.045) ng/ml NT-Pro-B Natriuret Pep (0-1800) pg/ml Total Protein (6.4-8.2) gm/dl Albumin (3.4-5.0) gm/dl Globulin (2.5-4.0) gm/dl Albumin/Globulin Ratio (0.9-2) Procalcitonin (0-0.5) ng/ml Random Cortisol mcg/dl COVID-19 Eval Order SARS-CoV-2 (PCR) (Negative) Influenza Type A (PCR) (Neg) Influenza Type B (PCR) (Neg) RSV (RT-PCR) (Neg) Administered Medications Discontinued Medications Albuterol (Albut/Ipratrop 3mg/0.5mg Neb 3 Ml Vial) 12 ml NEB ONE ONE Stop: 09/11/20 02:01 Last Admin: 09/11/20 02:15 Dose: 12 ml Documented by: [id number] Furosemide (Furosemide 40 Mg/4 Ml Vial) 60 mg IV NOW STA Stop: 09/11/20 03:39 Last Admin: 09/11/20 03:55 Dose: 60 mg Documented by: [id number] Furosemide (Furosemide 10 Mg/Ml 10 Ml Vial) Confirm Administered Dose 10 mg IV .STK-MED ONE Stop: 09/11/20 03:43 Last Admin: 09/11/20 04:01 Dose: Not Given Documented by: [id number] Magnesium Sulfate/Dextrose (Magnesium Sulfate / D5w) 1 gm in 100 mls @ 100 mls/hr IV NOW STA Stop: 09/11/20 03:02 Last Infusion: 09/11/20 03:30 Dose: 0 mls/hr Documented by: [id number] Admin: 09/11/20 02:27 Dose: 100 mls/hr Documented by: [id number] Piperacillin Sod/Tazobactam Sod (Zosyn) 4.5 gm in 120 mls @ 240 mls/hr IV NOW ONE Stop: 09/11/20 02:53 Last Infusion: 09/11/20 03:48 Dose: 0 mls/hr Documented by: [id number] Admin: 09/11/20 03:40 Dose: 240 mls/hr Documented by: [id number] Levofloxacin/Dextrose (Levaquin/D5w) 750 mg in 150 mls @ 100 mls/hr IV NOW STA Stop: 09/11/20 03:53 Last Admin: 09/11/20 04:01 Dose: Not Given Documented by: [id number] Sodium Chloride (Nss) 500 mls @ 999 mls/hr IV .Q31M ONE Stop: 09/11/20 03:23 Last Admin: 09/11/20 03:31 Dose: Not Given Documented by: [id number] Albumin Human (Albumin 25%) 12.5 gm in 50 mls @ 50 mls/hr IV ONE STA Stop: 09/11/20 04:44 Last Infusion: 09/11/20 04:56 Dose: 0 mls/hr Documented by: [id number] Admin: 09/11/20 03:55 Dose: 50 mls/hr Documented by: [id number] Methylprednisolone (Methylprednisolone 125 Mg/2 Ml Vial) 125 mg IV NOW STA Stop: 09/11/20 02:04 Last Admin: 09/11/20 02:27 Dose: 125 mg Documented by: [id number] Discharge Plan Visit Data Chief Complaint: Shortness of Breath/Dyspnea Stated Complaint: SOB ED Provider: Guillermo Hanks Discharge Problem: Acute hypoxemic respiratory failure, Pneumonia, Acute renal failure Patient Disposition: Admitted As Inpatient Discharge Instructions Interventions: ED Discharge Assessment Last Done: 09/11/20 05:39 Discharge Problem: Pneumonia Qualifiers: Pneumonia type: due to unspecified organism Laterality: unspecified laterality Lung location: unspecified part of lung Qualified Code(s): J18.9 - Pneumonia, unspecified organism Acute renal failure Qualifiers: Acute renal failure type: unspecified Qualified Code(s): N17.9 - Acute kidney failure, unspecified
[2020-09-11 02:47] LABS: Partial Thromboplastin Ratio 1.1; Partial Thromboplastin Time 30.2 Seconds (21.0-31.0); Prothrombin Time 10.3 Seconds (9.0-12.0)
[2020-09-11 02:50] LABS: Albumin Level 3.3 gm/dl (3.4-5.0); BUN Creatinine Ratio 17.6 (10-20); Calcium 8.6 mg/dl (8.5-10.1); Creatinine Clr Calc Pharmacy 17.6 ml/min; Est GFR (African American) 25.1; Est GFR (Non-African American) 21.7; Magnesium 2.4 mg/dl (1.8-2.4); Potassium 4.5 mmol/L (3.5-5.1)
[2020-09-11] MEDS ORDERED: SODIUM CHLORIDE 0.9% 500 ML IV ONE (02:53)
[2020-09-11 03:01] LABS: Influenza A virus by PCR Negative (Neg); Influenza B virus by PCR Negative (Neg); RSV by PCR Negative (Neg); SARS CoV2 RNA(COVID-19) InHosp NEGATIVE (Negative)
[2020-09-11 03:06] LABS: Albumin Globulin Ratio 0.7 (0.9-2); Bilirubin,Total 0.6 mg/dl (0.2-1); Creatine Kinase MB 3.6 ng/ml (0.5-3.6); Globulin 4.5 gm/dl (2.5-4.0); Total Protein 7.8 gm/dl (6.4-8.2); Troponin I 0.679 ng/ml (0-0.045)
[2020-09-11] MEDS ORDERED: FUROSEMIDE 40 MG/4 ML VIAL IV STA (03:38)
--- NOTE | 2020-09-11 03:40 | History & Physical Report ---
Date of Service September 11, 2020 Assessment & Plan (1) Acute hypoxemic respiratory failure: Multifactorial : Community-acquired pneumonia, possible sepsis, immunocompromised patient (hx RA on chronic steroid Rx) Decompensated heart failure, hx systolic dysfunction secondary to ischemic cardiomyopathy ARF on CKD secondary to illness ? Cardiorenal syndrome Hypertension, elevated secondary to illness Troponin elevation secondary to illness in the setting of kidney dysfunction hx CAD/CVA as per records hyperlipidemia on statin Rx rheumatoid arthritis on chronic steroid therapy Steroid-induced hyperglycemia rule out DM Poor insight on chronic medical conditions past tobacco abuse PCU BiPAP Baseline ABG CS.Ceftriaxone, Doxycycline Nebs RTC given wheezing Lasix albumin baseline UA, follow renal function hold ARB Stop home naproxen Strict I/Os, daily weights, CHF education Cardiology and Nephrology consultation Re: Decompensated CHF in the setting of worsening kidney dysfunction Follow troponin Check hemoglobin A1c PT OT eval once medically stable DVT prophylaxis. Heparin subcu DNR Patient son requesting updates from providers. Mr. Lobito Galvez, contact #[phone]. Total critical care time was 45 minutes. History of Present Illness Chief Complaint: Shortness of breath Primary Care Provider: Jose Pereira, History obtained from patient, family, and records. Patient is a fair historian. Medical history significant for chronic systolic heart failure secondary to ischemic cardiomyopathy (EF 40 to 44%, TTE 2020), CAD as per records, valvular heart disease (mild to moderate TR, mild AR), pulmonary hypertension as per records, hypertension, hyperlipidemia, history CVA, CRI (baseline creatinine 1.7), rheumatoid arthritis on chronic steroid therapy, history of Cervantes's palsy as per records, past tobacco abuse. Last confinement November 2019 for acute left occipital CVA. 6 weeks ago patient noted shortness of breath symptoms along with weight gain. Outpatient chest x-ray showed mild CHF. Symptoms improved with outpatient Furosemide prescription, dose later reduced due to kidney dysfunction. Patient seen at [facility] Cardiology office 5 weeks ago following PCP referral for CHF. Patient already euvolemic as per documentation at the time of visit. CHF tools discussed as per documentation. Updated TTE results showed decreased EF of 40 to 44% from November 2019 TTE EF of 55 to 60%. Patient also referred to Nephrology for follow-up visit a few days ago. Patient has no recollection of discussions and instructions from recent outpatient specialist appointments. Patient noted worsening shortness of breath the last two days with some fluid retention and moist cough symptoms. No fever, no chills. No chest pain. Denies aspiration. No recent COVID-19 contacts. Claims to be compliant with home meds. O2 sats noted to be 80s upon arrival at the ER. BiPAP initiated at the ER. Solu-Medrol and neb treatment given at the ER. 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 Allergies Allergy/AdvReac Type Severity Reaction Status Date / Time PATIENCE Inhibitors Allergy Intermediate Cough Verified 09/11/20 03:12 Home Medications Medication Instructions Recorded Confirmed Type amlodipine 10 mg PO DAILY 08/06/19 09/11/20 History metoprolol succinate 25 mg PO QPM 08/06/19 09/11/20 History prednisone 3 - 4 mg PO QAM 08/06/19 09/11/20 History rosuvastatin 40 mg PO QAM 08/06/19 09/11/20 History aspirin 81 mg PO QAM 09/11/20 09/11/20 History furosemide [Lasix] 20 mg PO Q OTHER DAY 09/11/20 09/11/20 History hydralazine 25 mg PO TID 09/11/20 09/11/20 History naproxen 500 mg PO DAILY 09/11/20 09/11/20 History Past Med/Surg History Medical History (Updated 09/11/20 @ 10:57 by Per Winter DO) Chronic kidney disease stage III Chronic steroid use for RA History of blood clots X1 PINCHING SCIATIC NERVE, HX BACK SURGERY FOR...NO PROBLEMS SINCE Hyperlipidemia Hypertension Ischemic cardiomyopathy Most recent EF 40-44%. Follows with Dr. Kendrick. 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 Required: No Beliefs That Will Affect Care: None Current Living Situation: Spouse Current Living Situation Comment: Other Information That Helps Us Care for You: No Feels Safe at Home: Yes Safety Concerns: Feels Safe At This Time Assistive Devices: Oxygen - Continuous Review of Systems Review of Systems: As per HPI, all 10 systems reviewed, all other ROS negative Physical Exam Physical Exam: GENERAL: Slightly uncomfortable, pleasant, minimal respiratory distress SKIN: Normal color, warm HEENT: [place] palpebral conjunctivae, no ptosis, dry buccal mucosa, BiPAP in place NECK : Supple, no tenderness CHEST : Decreased breath sounds, expiratory wheezes, no tenderness HEART : RRR, no obvious murmurs ABDOMEN: Some distention, nontender EXTREMITIES : Minimal LE swelling, no LE tenderness, no other conspicuous deformities noted NEUROLOGIC : Coherent, no facial asymmetry, chronic upper extremity joint deformities Results & Data Results & Data ([facility]) Vital Signs (Past 12 Hours) Vital Signs Temp Pulse Pulse Resp BP BP Pulse Ox 09/11/20 02:39 18 94 09/11/20 02:34 77 20 162/96 H 94 09/11/20 02:29 74 21 95 09/11/20 02:11 88 18 95 09/11/20 02:00 92 09/11/20 01:52 36.5 C 95 H 24 163/95 H 85 L Laboratory Results Laboratory Results WBC 10.81 K/uL (4.8-10.8) H 09/11/20 02:20 RBC 5.02 M/uL (4.7-6.1) 09/11/20 02:20 Hgb 15.7 g/dL (14.0-18.0) 09/11/20 02:20 Hct 45.0 % (42-52) 09/11/20 02:20 MCV 89.6 fL (80-100) 09/11/20 02:20 MCH 31.3 pg (25-34) 09/11/20 02:20 MCHC 34.9 g/dL (32-36) 09/11/20 02:20 RDW Std Deviation 45.7 fL (36.4-46.3) 09/11/20 02:20 RDW Coeff of Bright 13.8 % (11.5-14.5) 09/11/20 02:20 Plt Count 234 K/uL (130-400) 09/11/20 02:20 MPV 11.1 fL (7.4-10.4) H 09/11/20 02:20 Immature Gran % (Auto) 0.2 % 09/11/20 02:20 Neut % (Auto) 81.9 % 09/11/20 02:20 Lymph % (Auto) 9.1 % 09/11/20 02:20 Garza % (Auto) 6.9 % 09/11/20 02:20 Eos % (Auto) 1.5 % 09/11/20 02:20 Baso % (Auto) 0.4 % 09/11/20 02:20 Neut # (Auto) 8.86 K/uL (1.4-6.5) H 09/11/20 02:20 Lymph # (Auto) 0.98 K/uL (1.2-3.4) L 09/11/20 02:20 Garza # (Auto) 0.75 K/uL (0.11-0.59) H 09/11/20 02:20 Eos # (Auto) 0.16 K/uL (0-0.5) 09/11/20 02:20 Baso # (Auto) 0.04 K/uL (0-0.2) 09/11/20 02:20 Immature Gran # (Auto) 0.02 K/uL (0.00-0.02) 09/11/20 02:20 PT 10.3 Seconds (9.0-12.0) 09/11/20 02:20 INR 1.0 (0.9-1.1) 09/11/20 02:20 APTT 30.2 Seconds (21.0-31.0) 09/11/20 02:20 PTT Ratio 1.1 09/11/20 02:20 Sodium 138 mmol/L (136-145) 09/11/20 02:20 Potassium 4.5 mmol/L (3.5-5.1) 09/11/20 02:20 Chloride 109 mmol/L (98-107) H 09/11/20 02:20 Carbon Dioxide 20 mmol/L (21-32) L 09/11/20 02:20 Anion Gap 9.0 (3-11) 09/11/20 02:20 BUN 48 mg/dl (7-18) H 09/11/20 02:20 Creatinine 2.71 mg/dl (0.6-1.4) H 09/11/20 02:20 Est Cr Clr Drug Dosing 17.6 ml/min 09/11/20 02:20 Est GFR ( Amer) 25.1 09/11/20 02:20 Est GFR (Non-Af Amer) 21.7 09/11/20 02:20 BUN/Creatinine Ratio 17.6 (10-20) 09/11/20 02:20 Glucose 134 mg/dl (70-99) H 09/11/20 02:20 Lactate 1.7 mmol/L (0.4-2.0) 09/11/20 02:20 Calcium 8.6 mg/dl (8.5-10.1) 09/11/20 02:20 Magnesium 2.4 mg/dl (1.8-2.4) 09/11/20 02:20 Total Bilirubin 0.6 mg/dl (0.2-1) 09/11/20 02:20 AST 43 U/L (15-37) H 09/11/20 02:20 ALT 53 U/L (12-78) 09/11/20 02:20 Alkaline Phosphatase 80 U/L (45-117) 09/11/20 02:20 Total Creatine Kinase 127 U/L (39-308) 09/11/20 02:20 CK-MB (CK-2) 3.6 ng/ml (0.5-3.6) 09/11/20 02:20 CK/CKMB % Calc 2.8 (0-3.0) 09/11/20 02:20 Troponin I 0.679 ng/ml (0-0.045) H* 09/11/20 02:20 NT-Pro-B Natriuret Pep 39175 pg/ml (0-1800) H 09/11/20 02:20 Total Protein 7.8 gm/dl (6.4-8.2) 09/11/20 02:20 Albumin 3.3 gm/dl (3.4-5.0) L 09/11/20 02:20 Globulin 4.5 gm/dl (2.5-4.0) H 09/11/20 02:20 Albumin/Globulin Ratio 0.7 (0.9-2) L 09/11/20 02:20 Procalcitonin 0.49 ng/ml (0-0.5) 09/11/20 02:20 Random Cortisol 32.61 mcg/dl 09/11/20 02:20 COVID-19 Eval Order CovFluRsv at [facility] 09/11/20 02:00 SARS-CoV-2 (PCR) NEGATIVE (Negative) 09/11/20 02:00 Influenza Type A (PCR) Negative (Neg) 09/11/20 02:00 Influenza Type B (PCR) Negative (Neg) 09/11/20 02:00 RSV (RT-PCR) Negative (Neg) 09/11/20 02:00 Diagnostic Findings Chest x-ray as per my interpretation CHF CT chest initial read: Moderate bilateral pleural effusions with adjacent atelectasis. Bibasilar opacities compatible with pneumonia. Reactive mediastinal lymph nodes. CT abdomen pelvis initial read: No acute findings. No hydronephrosis or nephrolithiasis. Atrophy right kidney. Cortical scarring of the interpolar region of left kidney. 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 Ectatic abdominal aorta with atherosclerotic calcifications. Diverticulosis. Small fat-containing right inguinal hernia. EKG as per my interpretation : Rate 80, NSR, LAD, LAFB, LVH, T wave inversion lateral leads
[2020-09-11 03:42] LABS: Base Excess VBG -4.6 mEq/L; HCO3 VBG 20 mmol/L; Oxygen Saturation VBG 79.6 %; PCO2 VBG 34 mmHg (38-50); PO2 VBG 46 mmHg; pH VBG 7.38 (7.36-7.41)
[2020-09-11] MEDS ORDERED: FUROSEMIDE 10 MG/ML 10 ML VIAL IV ONE (03:42)
[2020-09-11] MEDS ORDERED: ALBUMIN 25% 12.5 GM/50 ML VIAL IV STA (03:45)
[2020-09-11 03:54] LABS: Base Excess ABG -3.9 mEq/L (-9-1.8); HCO3 ABG 19 mmol/L (19-24); Oxygen Saturation ABG 94.3 % (90-95); PCO2 ABG 30 mmHg (35-46); PO2 ABG 67 mmHg (80-95); pH ABG 7.43 (7.35-7.45)
[2020-09-11 03:56] LABS: Allen Test Pos (Pos)
[2020-09-11] MEDS ORDERED: DOXYCYCLINE HYCLATE 100 MG in DEXTROSE 5% 100 ML IV STA (06:18)
[2020-09-11] MEDS ORDERED: traMADol HCL 50 MG TABLET PO PRN (06:18)
[2020-09-11] MEDS ORDERED: ACETAMINOPHEN 325 MG TAB PO PRN (06:18)
[2020-09-11] MEDS ORDERED: NITROGLYCERIN SL 0.4 MG/TAB TAB SL PRN (06:18)
[2020-09-11] MEDS ORDERED: PROMETHAZINE HCL 12.5 MG in SODIUM CHLORIDE 0.9% 50 ML IV PRN (06:18)
[2020-09-11] MEDS ORDERED: ALBUT/IPRATROP 3MG/0.5MG NEB 3 ML VIAL NEB SCH (07:00)
[2020-09-11] MEDS: cefTRIAXone SODIUM 2,000 MG in DEXTROSE 5% 50 ML IV SCH (07:04)
[2020-09-11] MEDS: HEPARIN SOD 5,000 UNIT/0.5 ML VIAL SQ SCH ×2 (07:09→13:20)
[2020-09-11] MEDS: ROSUVASTATIN CALCIUM 20 MG TAB PO SCH (07:52)
[2020-09-11] MEDS: ASPIRIN 81 MG ECTAB PO SCH (07:53)
[2020-09-11] MEDS: predniSONE 1 MG TAB PO SCH (07:53)
[2020-09-11] MEDS: amLODIPine BESYLATE 5 MG TAB PO SCH (07:53)
[2020-09-11] MEDS: guaiFENesin 600 MG TABCR PO SCH ×2 (07:53→20:12)
[2020-09-11] MEDS: hydrALAZINE HCL 25 MG TAB PO SCH ×3 (07:53→20:12)
--- NOTE | 2020-09-11 09:05 | Cardiology Consultation ---
Date of Consultation September 11, 2020 Assessment & Plan (1) Acute on chronic heart failure with reduced ejection fraction and diastolic dysfunction: Add topical nitrates for afterload reduction in the setting of uncontrolled hypertension. Appreciate nephrology input. Continue Lasix 60 mg IV twice daily. Monitor daily weight, fluid balance, GFR, and electrolytes. (2) Pneumonia: Blood cultures pending. Antibiotics per internal medicine. Supplement oxygen as needed. (3) Acute kidney injury superimposed on chronic kidney disease: Diuretic therapy recently deescalated resulting in acute heart failure decompensation. Lasix titrated to 60 mg twice daily cautiously. Daily BMP. Naproxen listed on outpatient medication list. Patient instructed to avoid further use of NSAIDs. Appreciate nephrology input. (4) Pleural effusion, bilateral: IV Lasix as ordered. (5) HTN (hypertension): Uncontrolled since admission. Add topical nitrates for afterload reduction. Continue amlodipine as ordered. Consider titration of hydralazine and/or transition metoprolol to carvedilol during hospitalization pending clinical response to IV diuresis and topical nitrates.. History of Present Illness Reason for Consultation: CHF Requesting Physician: Dr. Tommy Adler Attending Physician: Mando Tiwari MD History of Present Illness 75-year-old patient presents to the emergency department with progressive dyspnea since 09/09/2020. History of ischemic cardiomyopathy with ejection fraction of 40-40%. Evaluated in the cardiology office 08/01/2020 with evidence of acute decompensated heart failure. Variable renal function noted [facility] with creatinine ranging from 1.5 up to 2.6. Most recently furosemide reduced to 20 mg daily in July due to elevated creatinine. He was evaluated by nephrology on September 09, however, documentation unavailable at this time. Patient hypoxic in ER. X-ray with evidence of bilateral pneumonia and pulmonary vascular congestion. CT confirms these findings in addition to bilateral pleural effusions. Patient treated with intravenous furosemide, antibiotic therapy, and BiPAP. Weight unchanged when compared to most recent office visit from 08/01/2020. Patient currently resting comfortably. Symptoms improved with diuretic therapy. Blood pressure remains elevated. Denies chest pain or tightness. No orthopnea or paroxysmal nocturnal dyspnea. Mild lower extremity, left greater than right unchanged. Reports de-escalation of diuretic therapy over the past 2 weeks, taking Lasix 20 mg every other day. Denies fever, chills, or sick contacts. Notes cough with minimal sputum production. Allergies Allergy/AdvReac Type Severity Reaction Status Date / Time PATIENCE Inhibitors AdvReac Intermediate Cough Verified 09/12/20 12:12 Home Medications Medication Instructions Recorded Confirmed Type amlodipine 10 mg PO DAILY 08/06/19 09/11/20 History metoprolol succinate 25 mg PO QPM 08/06/19 09/11/20 History prednisone 3 - 4 mg PO QAM 08/06/19 09/11/20 History rosuvastatin 40 mg PO QAM 08/06/19 09/11/20 History aspirin 81 mg PO QAM 09/11/20 09/11/20 History furosemide [Lasix] 20 mg PO Q OTHER DAY 09/11/20 09/11/20 History hydralazine 25 mg PO TID 09/11/20 09/11/20 History naproxen 500 mg PO DAILY 09/11/20 09/11/20 History Patient History Medical History (Updated 09/11/20 @ 10:57 by Per Winter DO) Chronic kidney disease stage III Chronic steroid use for RA History of blood clots X1 PINCHING SCIATIC NERVE, HX BACK SURGERY FOR...NO PROBLEMS SINCE Hyperlipidemia Hypertension Ischemic cardiomyopathy Most recent EF 40-44%. Follows with Dr. Kendrick. Rheumatoid arthritis follows with [facility] Surgical History History of back surgery History of elbow surgery RIGHT History of hernia surgery Family History Brother Family history of diabetes mellitus Mother Family history of diabetes mellitus Social History Smoking Status: Former smoker Second Hand Exposure: Yes; Hx Alcohol Use: No Hx Substance Use: No Preferred Language: Nepali Communication Ability: Effective Customer Support Manager Required: No Beliefs That Will Affect Care: None Current Living Situation: Spouse Current Living Situation Comment: Other Information That Helps Us Care for You: No Feels Safe at Home: Yes Safety Concerns: Feels Safe At This Time Assistive Devices: Oxygen - Continuous Review of Systems Review of Systems: All systems reviewed & are unremarkable except as noted in Subjective Physical Exam Constitutional: well developed, well nourished and + ill appearing; no acute distress Respiratory: normal respiratory effort Auscultation: + diminished lung sounds (Bases bilaterally) and + rales (Bases bilaterally); no rhonchi and no wheezes Cardiovascular: Rate/Rhythm: regular rate and regular rhythm Heart Sounds: normal S1 and normal S2; no murmur Vessels: + JVD and radial pulses present Extremities: + edema (Mild bilateral pedal edema, left greater than right) Gastrointestinal (Abdomen): Inspection/Auscultation: abdomen normal to inspection and normal bowel sounds; abdomen not distended Percussion/Palpation: abdomen soft; abdomen nontender, no guarding and abdomen not rigid Neurologic: moves all extremities; no focal motor deficits Motor/Sensory: no tremor Psychiatric: A+Ox3, euthymic affect Results & Data ([facility]) Vital Signs (Past 12 Hours) Vital Signs Temp Pulse Pulse Pulse Resp BP BP 09/11/20 08:02 36.6 C 70 18 162/89 H 09/11/20 07:26 72 09/11/20 06:11 36.6 C 79 22 161/99 H 09/11/20 05:00 72 20 163/97 H 09/11/20 04:30 72 19 171/95 H 09/11/20 04:26 73 17 09/11/20 04:00 77 23 169/106 H 09/11/20 03:54 73 22 167/102 H 09/11/20 03:53 74 16 167/102 H 09/11/20 02:39 18 09/11/20 02:34 77 20 162/96 H 09/11/20 02:29 74 21 09/11/20 02:11 88 18 09/11/20 02:00 09/11/20 01:52 36.5 C 95 H 24 163/95 H Pulse Ox 09/11/20 08:02 94 09/11/20 07:26 95 09/11/20 06:11 92 09/11/20 05:00 94 09/11/20 04:30 92 09/11/20 04:26 92 09/11/20 04:00 92 09/11/20 03:54 93 09/11/20 03:53 93 09/11/20 02:39 94 09/11/20 02:34 94 09/11/20 02:29 95 09/11/20 02:11 95 09/11/20 02:00 92 09/11/20 01:52 85 L Diagnostic Findings 2D echocardiogram report 08/24/2020, [facility]: The qualitative LV ejection fraction is 40-44% (mildly reduced). The septal motion is abnormal consistent with intrventricular conduction delay. The remaining left ventricular wall segments are mildly hypokinetic. The left ventricular diastolic function is moderately abnormal (grade II). Mild aortic valve sclerosis is present. Mild aortic valve regurgitation is present. Mild to moderate tricuspid regurgitation. The estimated pulmonary artery systolic pressure is 51mm Hg. The aortic root is mildly enlarged. Compared to prior study of 06/05/2018, there is no significant change. (1) Pneumonia Laterality: unspecified laterality Lung location: unspecified part of lung Pneumonia type: due to unspecified organism Qualified Code(s): J18.9 - Pneumonia, unspecified organism
--- NOTE | 2020-09-11 09:21 | CT Scan Report ---
CT OF THE CHEST WITHOUT IV CONTRAST CLINICAL HISTORY: Weakness. Pneumonia. COMPARISON STUDY: Chest radiograph November 23, 2019 and September 11, 2020. TECHNIQUE: Axial images of the chest were obtained without IV contrast. Images were reviewed in the axial, sagittal, and coronal planes. IV contrast was not administered for this examination. Automat ed exposure control was utilized for the study. A dose lowering technique was utilized adhering to t he principles of ALARA. FINDINGS: There is no axillary lymphadenopathy. The heart is moderately enlarged. Note is made of mu ltiple mildly enlarged mediastinal lymph nodes. Index right paratracheal lymph node measures 1.5 cm i n short axis diameter. Index prevascular node measures 1.6 cm. There is no pericardial effusion. Mode rate bilateral pleural effusions are noted. Associated bilateral lower lobe opacities are present. Ce ntral airways are patent. Lungs are suboptimally assessed given respiratory motion. There is no pneum othorax. There is mild paraseptal emphysema. Moderate interlobular septal thickening is noted. Old th oracic spine compression deformity is are noted. There is lumbar spine scoliosis. Abdomen and pelvis will be reported separately. IMPRESSION: 1. Interstitial pulmonary edema. 2. Moderate bilateral pleural effusions with associated bilateral lower lobe opacities which could re flect pneumonia or atelectasis. 3. Multiple mildly enlarged mediastinal lymph nodes which are likely reactive/related to pulmonary ed cynthia. 4. Moderate cardiomegaly. ACT 112: Negative or not required by law. Electronically signed by: Ankush Johns M.D. 09/11/2020 9:19 AM
--- NOTE | 2020-09-11 09:23 | XRay Report ---
XR chest 1V portable CLINICAL HISTORY: SEPSIS COMPARISON STUDY: Chest radiograph November 23, 2019. FINDINGS: Lung volumes are normal. There is no pneumothorax. Bilateral pleural effusions are noted. T here is moderate pulmonary edema. Bibasilar opacities are present. Note is made of moderate cardiomeg mk. IMPRESSION: Moderate pulmonary edema with bilateral pleural effusions and associated bibasilar opacities which co uld reflect atelectasis or consolidation. Radiographic follow-up to ensure resolution is recommended. ACT 112: Negative or not required by law. Electronically signed by: Ankush Johns M.D. 09/11/2020 9:21 AM
--- NOTE | 2020-09-11 09:28 | CT Scan Report ---
CT OF THE ABDOMEN AND PELVIS WITHOUT CONTRAST CLINICAL HISTORY: Acute renal failure. COMPARISON STUDY: No previous studies for comparison. TECHNIQUE: Axial images of the abdomen and pelvis were obtained without IV contrast. Images were revi ewed in the axial, sagittal, and coronal planes. Automated exposure control was utilized for the lior dy. A dose lowering technique was utilized adhering to the principles of ALARA. FINDINGS: Chest CT better depicts bilateral pleural effusions and bilateral airspace opacities with p ulmonary edema. Please see that report for further description. Evaluation of the abdomen and pelvis is suboptimal on this unenhanced examination. No pneumatosis, free air or portal venous gas is presen t. Unenhanced images of the liver, spleen, adrenal glands and pancreas are unremarkable. There is no biliary ductal dilatation. 3 cm infrarenal abdominal aortic aneurysm is noted. Left common artery fabby sures 2.1 cm in caliber. Marked right renal atrophy is noted. There is scarring within the midpole of the left kidney. There is mild left renal cortical thinning. Left sided parapelvic cysts are noted. There is no hydronephrosis. There are no urinary calculi. Prostate is mildly enlarged. There is no ev idence for a bowel obstruction. Colonic diverticulosis is noted without evidence for acute diverticul itis. Incidental note is made of levoscoliosis of the lumbar spine. IMPRESSION: 1. Marked right renal atrophy. Mild left renal atrophy with moderate scarring within the mid to upper pole of the left kidney. No hydronephrosis. No urinary calculi. 2. No acute process within the abdomen or pelvis on unenhanced exam. 3. 3 cm infrarenal abdominal aortic aneurysm. Mild dilatation of the left common iliac artery. 4. No bowel obstruction. ACT 112: Negative or not required by law. Electronically signed by: Ankush Johns M.D. 09/11/2020 9:27 AM
--- NOTE | 2020-09-11 09:36 | Nephrology Consultation ---
Date of Consultation September 11, 2020 Assessment & Plan (1) Acute kidney injury superimposed on chronic kidney disease: He has got a baseline CKD 3 a, likely secondary to longstanding hypertension , and NSAID use and cardiorenal syndrome Functions fluctuate as per his volume status and diuretic use. Continues to make urine which is a reassuring. This x-ray/CT is consistent with fluid overload with a raised BNP, and troponin. RYAN on CKD secondary to fluid overload, amazingly looks comfortable. We will increase his Lasix to 60 mg IV twice daily. And DC albumin Agree with withholding naproxen and losartan. Daily weights, input and output charting, and BMP Lasix would be adjusted as per trends, Initial RYAN work-up -Renal ultrasound -UA -UPCR. (2) Acute hypoxemic respiratory failure: Multifactorial -Major depression of fluid overload, with likely chest infection -Continue on antibiotics(renally dosed) -Pulmonary toilet (3) Hypertension: Acutely fluid driven, anxiety and previous NSAID use Increase Lasix as above. Continue on amlodipine, hydralazine and metoprolol History of Present Illness Reason for Consultation: Acute on chronic renal failure Attending Physician: Mando Tiwari MD History of Present Illness 55-year old, history of CAD,ischemic cardiomyopathy(EF 40 % November 2019), CKD stage III, presented to the ER with increasing shortness of breath and cough other significant medical history includes to moderate TR but many hypertension hyperlipidemia, previous history of CVA, rheumatoid arthritis on chronic steroid therapy. Was evaluated by nephrology recently ( as per [place] , but he has memory issues), he has fluctuating baseline creatinine ranging from 1.5-2.6, related to his volume status and Diuretic use. Has been on 20 mg EOD of furosemide since July, X-ray endorsed bilateral pneumonia with pulmonary vascular congestion, CT chest confirmed this findings with bilateral pleural effusion. He was treated with intravenous furosemide 60 IV, antibiotics.Admitting weight was 58 kg(which is unchanged since his last cardiology visit on 01 August), continues to make urine. Labs were significant for BUN/creatinine of 48/2.9, CO2 20, troponin 0.679, and proBNP 30,709. As per documented home medications he has been taking naproxen 300 daily. On review, still short of breath but better, no chest pain. Allergies Allergy/AdvReac Type Severity Reaction Status Date / Time PATIENCE Inhibitors Allergy Intermediate Cough Verified 09/11/20 03:12 Home Medications Medication Instructions Recorded Confirmed Type amlodipine 10 mg PO DAILY 08/06/19 09/11/20 History metoprolol succinate 25 mg PO QPM 08/06/19 09/11/20 History prednisone 3 - 4 mg PO QAM 08/06/19 09/11/20 History rosuvastatin 40 mg PO QAM 08/06/19 09/11/20 History aspirin 81 mg PO QAM 09/11/20 09/11/20 History furosemide [Lasix] 20 mg PO Q OTHER DAY 09/11/20 09/11/20 History hydralazine 25 mg PO TID 09/11/20 09/11/20 History naproxen 500 mg PO DAILY 09/11/20 09/11/20 History Patient History Medical History (Updated 09/11/20 @ 10:57 by Per Winter DO) Chronic kidney disease stage III Chronic steroid use for RA History of blood clots X1 PINCHING SCIATIC NERVE, HX BACK SURGERY FOR...NO PROBLEMS SINCE Hyperlipidemia Hypertension Ischemic cardiomyopathy Most recent EF 40-44%. Follows with Dr. Kendrick. Rheumatoid arthritis follows with [facility] Surgical History History of back surgery History of elbow surgery RIGHT History of hernia surgery Family History Brother Family history of diabetes mellitus Mother Family history of diabetes mellitus Social History Smoking Status: Former smoker Second Hand Exposure: Yes; Hx Alcohol Use: No Hx Substance Use: No Preferred Language: Spanish Communication Ability: Effective Return To Service Inspector Required: No Beliefs That Will Affect Care: None Current Living Situation: Spouse Current Living Situation Comment: Other Information That Helps Us Care for You: No Feels Safe at Home: Yes Safety Concerns: Feels Safe At This Time Assistive Devices: Oxygen - Continuous Review of Systems Review of Systems: All systems reviewed & are unremarkable except as noted in HPI & below Physical Exam Physical Exam: General vitals as above ,not in distress Eyes: PERRL, conjunctivae normal, anicteric sclerae ENMT: external ear and nose normal, oropharynx normal Neck: trachea midline, no thyromegaly Respiratory: normal respiratory effort, lungs clear to auscultation Cardiovascular: RRR, no murmur, no edema Gastrointestinal (Abdomen): Percussion/Palpation: abdomen soft; abdomen nontender Musculoskeletal: Extremities: strength 5/5 throughout Gait: normal gait both hands /fingers are deformed due to advanced RA 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, no edema Neurologic: PERRL, EOMI, alert and oriented Results & Data ([facility]) Vital Signs (Past 12 Hours) Vital Signs Temp Pulse Pulse Pulse Resp BP BP 09/11/20 08:02 36.6 C 70 18 162/89 H 09/11/20 07:26 72 09/11/20 06:11 36.6 C 79 22 161/99 H 09/11/20 05:00 72 20 163/97 H 09/11/20 04:30 72 19 171/95 H 09/11/20 04:26 73 17 09/11/20 04:00 77 23 169/106 H 09/11/20 03:54 73 22 167/102 H 09/11/20 03:53 74 16 167/102 H 09/11/20 02:39 18 09/11/20 02:34 77 20 162/96 H 09/11/20 02:29 74 21 09/11/20 02:11 88 18 09/11/20 02:00 09/11/20 01:52 36.5 C 95 H 24 163/95 H Pulse Ox 09/11/20 08:02 94 09/11/20 07:26 95 09/11/20 06:11 92 09/11/20 05:00 94 09/11/20 04:30 92 09/11/20 04:26 92 09/11/20 04:00 92 09/11/20 03:54 93 09/11/20 03:53 93 09/11/20 02:39 94 09/11/20 02:34 94 09/11/20 02:29 95 09/11/20 02:11 95 09/11/20 02:00 92 09/11/20 01:52 85 L
[2020-09-11] MEDS ORDERED: ALBUT/IPRATROP 3MG/0.5MG NEB 3 ML VIAL NEB PRN (09:58)
[2020-09-11 10:27] LABS: Appearance Urine Clear (Clear); Bacteria Urine Automated Negative (Negative); Bilirubin Urine Negative (Negative); Blood Urine Negative (Negative); Color Urine Yellow; Epithelial Cell Urine Auto 0-5 /lpf (0-5); Glucose Urine UA Negative (Negative); Ketones Urine Negative (Negative); Leukocyte Esterase Urine Trace (Negative); Nitrite Urine Negative (Negative); Protein Urine Negative (Negative); Specific Gravity Urine 1.013 (1.000-1.030); Urobilinogen Urine Negative (Negative)
[2020-09-11] MEDS: NITROGLYCERIN 2% OINTMENT 30GM TUBE EXT SCH ×2 (11:14→17:16)
[2020-09-11] MEDS ORDERED: FUROSEMIDE 40 MG/4 ML VIAL IV ONE (17:00)
[2020-09-11] MEDS ORDERED: ALBUMIN 25% 12.5 GM/50 ML VIAL IV ONE (17:00)
--- NOTE | 2020-09-11 19:37 | Hospitalist Progress Note ---
Date of Service September 11, 2020 Assessment & Plan (1) Acute hypoxemic respiratory failure: Multifactorial due to Pneumonia, pleural effusion and CHF CT chest showed interstitial pulmonary edema. Moderate bilateral pleural effusions with associated bilateral lower lobe opacities CXR showed moderate pulmonary edema with bilateral pleural effusions and associated bibasilar opacities COVID 19 and Influenza negative Received Levaquin and Zosyn on admission Continue antibiotic with Rocephin and doxycycline Blood cx pending Will check sputum cx Continue oxygen supplement Continue monitor closely (2) Pleural effusion, bilateral: (3) Acute on chronic heart failure with reduced ejection fraction and diastolic dysfunction: CT chest showed interstitial pulmonary [place] [address] Received Lasix IV 60mg on admission Cardiology and nephrology on board, recommended IV lasix 60mg BID Continue Metoprolol Continue monitor I/O will put on Fluid restriction to 1800ml daily Acute kidney injury superimposed on chronic kidney disease stage 3 Creatinine on admission 2.7 CT abd showed mild left renal atrophy with moderate scarring within the mid to upper pole of the left kidney. No hydronephrosis. Nephrology on board recommended to continue lasix 60mg IV BID Will get a renal u/s and repeat UA Monitor BMP Elevated troponin Mostly related to acute hypoxia respiratory failure and acute kidney injury Troponin on admission 0.679 --> 0.647 EKG showed no acute ischemia changes Continue aspirin, metoprolol and statin Continue monitor closely Elevated Glucose Mostly due to chronic steroid therapy Hba1c pending Continue monitor BS Hx CVA Continue aspirin and statin Stable Aortic aneurysm CT showed 3 cm infrarenal abdominal aortic aneurysm. Mild dilatation of the left common iliac artery Will need outpatient surveillance DVT px on heparin subq Code status DNR Patient son requesting updates from providers. Mr. Lobito Galvez, contact #[phone]. Admission and Anticipated Discharge Date Admission Date: September 11, 2020 Subjective Pt was seen and examined for follow up of SOB Sitting in chair with no distress Pt said that his breathing is a little better he said that he was having SOB with minimal exertion Denies any chest pain, palpitation, dizziness and fever Review of Systems Review of Systems: All systems reviewed & are unremarkable except as noted in Subjective Physical Exam Physical Exam: General- No acute distress Head- atraumatic Eyes- PERRL, EOMI, ENT- oropharynx clear Neck- supple, no JVD Lungs- diminished BS Heart- regular rhythm; no murmur Abdomen- normal bowel sounds, soft, nontender Extremities- no calf tenderness Neuro- alert, oriented x 3; PERRL, EOMI; no facial palsy; no dysarthria Skin- warm & dry Results & Data Results & Data ([facility]) Vital Signs (Past 12 Hours) Vital Signs Temp Pulse Resp BP Pulse Ox Pulse Ox 09/11/20 15:52 36.5 C 61 18 159/76 H 95 09/11/20 14:19 94 09/11/20 11:58 36.4 C L 73 18 158/82 H 91 09/11/20 08:02 36.6 C 70 18 162/89 H 94
[2020-09-11] MEDS: DOXYCYCLINE HYCLATE 100 MG CAP PO SCH (20:12)
[2020-09-11] MEDS: METOPROLOL SUCC 25MG EXT REL TAB PO SCH (20:12)
[2020-09-12] MEDS: NITROGLYCERIN 2% OINTMENT 30GM TUBE EXT SCH ×5 (00:27→23:30)
[2020-09-12] MEDS: HEPARIN SOD 5,000 UNIT/0.5 ML VIAL SQ SCH ×4 (06:14→20:44)
[2020-09-12] MEDS: cefTRIAXone SODIUM 2,000 MG in DEXTROSE 5% 50 ML IV SCH (06:14)
[2020-09-12 06:17] LABS: Hematocrit (blood only) 38.4 % (42-52); Hemoglobin 13.7 g/dL (14.0-18.0); Immature Granulocytes # (auto) 0.02 K/uL (0.00-0.02); Immature Granulocytes % (auto) 0.2 %; Lymphocytes # (auto) 0.82 K/uL (1.2-3.4); Lymphocytes % (auto) 9.7 %; Mean Corpuscular Hemoglobin 31.2 pg (25-34); Mean Corpuscular Hgb Conc 35.7 g/dL (32-36); Mean Corpuscular Volume 87.5 fL (80-100); Mean Platelet Volume 10.7 fL (7.4-10.4); Monocytes # (auto) 0.53 K/uL (0.11-0.59); Monocytes % (auto) 6.3 %; Neutrophils % (auto) 83.8 %; Platelet Count 204 K/uL (130-400); RDW Coefficient of Variation 13.5 % (11.5-14.5); RDW Standard Deviation 43.3 fL (36.4-46.3); Red Blood Count 4.39 M/uL (4.7-6.1); White Blood Count 8.47 K/uL (4.8-10.8)
[2020-09-12 06:35] LABS: Estimated Average Glucose 111 mg/dl; Hemoglobin A1C 5.5 % (4.5-5.6)
--- NOTE | 2020-09-12 06:42 | Electrocardiogram Report ---
Test Reason : Blood Pressure : / mmHG Vent. Rate : 081 BPM Atrial Rate : 081 BPM P-R Int : 170 ms QRS Dur : 156 ms QT Int : 426 ms P-R-T Axes : -23 -25 165 degrees QTc Int : 494 ms Normal sinus rhythm Left bundle branch block Abnormal ECG When compared with ECG of 26-NOV-2019 11:23, Vent. rate has increased BY 28 BPM QT has lengthened Confirmed by Andreas Duran ([id number]) on 09/12/2020 6:42:38 AM Referred By: REFERRED SELF Confirmed By:Andreas Duran
[2020-09-12 06:50] LABS: Albumin Level 2.8 gm/dl (3.4-5.0); BUN Creatinine Ratio 27.9 (10-20); Calcium 7.9 mg/dl (8.5-10.1); Creatinine Clr Calc Pharmacy 20.2 ml/min; Est GFR (African American) 29.5; Est GFR (Non-African American) 25.5; Potassium 4.3 mmol/L (3.5-5.1)
[2020-09-12 06:55] LABS: Albumin Globulin Ratio 0.8 (0.9-2); Bilirubin,Total 0.4 mg/dl (0.2-1); Globulin 3.5 gm/dl (2.5-4.0); Total Protein 6.3 gm/dl (6.4-8.2)
--- NOTE | 2020-09-12 08:18 | Ultrasound Report ---
RENAL ULTRASOUND CLINICAL HISTORY: Worsening renal function. COMPARISON STUDY: CT of the abdomen and pelvis September 11, 2020. TECHNIQUE: Sonography of the kidneys and the urinary bladder was performed. FINDINGS: The right kidney is markedly atrophic, measuring 8.7 x 4.3 x 3.9 cm. Left kidney measures 1 0.5 x 5.4 x 3.6 cm. There is scarring within the mid to upper pole of the left kidney with cortical t hinning. There is no hydronephrosis. No renal calculi or masses are identified by sonography. A Gonzalez balloon within the bladder is present. IMPRESSION: 1. No hydronephrosis. 2. Marked right renal atrophy. Moderate left renal scarring. ACT 112: Negative or not required by law. Electronically signed by: Ankush Johns M.D. 09/12/2020 8:17 AM
[2020-09-12] MEDS: guaiFENesin 600 MG TABCR PO SCH ×2 (08:54→20:44)
[2020-09-12] MEDS: predniSONE 1 MG TAB PO SCH (08:54)
[2020-09-12] MEDS: hydrALAZINE HCL 25 MG TAB PO SCH (08:54)
[2020-09-12] MEDS: amLODIPine BESYLATE 5 MG TAB PO SCH (08:54)
[2020-09-12] MEDS: ASPIRIN 81 MG ECTAB PO SCH (08:54)
[2020-09-12] MEDS: DOXYCYCLINE HYCLATE 100 MG CAP PO SCH ×2 (08:54→20:44)
[2020-09-12] MEDS: ROSUVASTATIN CALCIUM 20 MG TAB PO SCH (08:55)
--- NOTE | 2020-09-12 11:09 | Cardiology Progress Note ---
Date of Service September 12, 2020 Assessment & Plan (1) Acute on chronic heart failure with reduced ejection fraction and diastolic dysfunction: (2) Pneumonia: (3) Acute kidney injury superimposed on chronic kidney disease: (4) Pleural effusion, bilateral: (5) HTN (hypertension): PA and lateral chest x-ray today Monitor daily weight, fluid balance, GFR, and electrolytes. ? transition to oral furosemide today or tomorrow Increase hydralazine to 50 mg three times per day for additional blood pressure control. Reduce amlodipine dosing to 5 mg/day Eventually transition topical nitrates to isosorbide. Avoid NSAID's Admission and Anticipated Discharge Date Admission Date: September 11, 2020 Supervising Physician Co-Signing Physician Notes Patient seen and examined at the bedside. Feeling better from a respiratory perspective. Fluid balance -1580 cc. Telemetry demonstrates sinus rhythm without dysrhythmia. Serum creatinine trending downward. Patient notes mild orthopnea. Continues to cough without sputum production. No chest discomfort or heaviness. He has not received a dose of intravenous diuretic therapy today. PE: VSS. General: NAD, awake alert and oriented x3. HEENT mucous membranes moist, no scleral icterus. Heart: Regular rhythm, normal S1-S2. No murmur appreciated. Lungs: Crackles at the bases bilateral. No rhonchi or wheeze. Extremities: No edema. Neuro: No focal deficit. A/P: Agree with above PA-C history, physical exam, assessment and plan with the following additions/changes: Recommend 60 mg IV Lasix today. Reassess renal function, fluid balance, weight, and electrolytes in a.m. Hydralazine titrated to 50 mg 3 times daily to improve blood pressure control. Will transition patient from topical nitrates to isosorbide prior to discharge. Antibiotics as per internal medicine. Subjective Patient seen and examined. Chart, medications, and telemetry reviewed. Admitted on 09/11/2020 with acute on chronic dyspnea As best I can tell, he received 60 mg of IV furosemide in the ER and a second dose of 60 mg IV furosemide on 09/11/2020 at 16:44 Slept well last night. This morning he feels significantly better in regards to his breathing and fluid retention. No chest pain. No palpitations. Telemetry: Sinus in the 60's and 70's. Occasional PVC BUN 48 -> 66 Creatinine 2.71 -> 2.37 I/O's are negative 1,336 mL's Weight down 1.9 kg overall EF 40-44% va 08/24/2020 TTE at [facility]. Grade II diastolic dysfunction noted. Estimated PASP 51 mmHg. Review of Systems Review of Systems: All systems reviewed & are unremarkable except as noted in HPI & below Constitutional: + fatigue; no fever and no chills Respiratory: + chest congestion; no hemoptysis and no pain on inspiration Cardiovascular: + dyspnea and + edema; no chest pain Gastrointestinal: no nausea and no vomiting Physical Exam Physical Exam: General: A&Ox3. NAD. HENT: Normocephalic. Atraumatic. PER. Conjunctiva pink, sclera clear. Neck: No carotid bruits. No JVD. No HJR. Heart: RRR. No murmur. No rub. No gallop. PMI is nondisplaced. Lungs: Clear to auscultation. Abdomen: +BS. Soft. Nontender. No masses or organomegaly. Extremities: Trivial edema. No clubbing. No cyanosis. Limited neurological examination is without focal deficits. Pulses: radial=2/4, posterior tibial=1/4. Results & Data ([facility]) Vital Signs (Past 12 Hours) Vital Signs Temp Pulse Resp BP Pulse Ox 09/12/20 07:47 36.6 C 65 18 153/82 H 95 09/12/20 04:09 36.4 C L 71 22 144/74 H 94 09/11/20 23:24 36.6 C 74 24 159/92 H 98 Laboratory Results Laboratory Results - last 24 hr 09/11/20 09/12/20 09/12/20 02:20 06:05 06:05 WBC 8.47 RBC 4.39 L Hgb 13.7 L Hct 38.4 L MCV 87.5 MCH 31.2 MCHC 35.7 RDW Std Deviation 43.3 RDW Coeff of Bright 13.5 Plt Count 204 MPV 10.7 H Immature Gran % (Auto) 0.2 Neut % (Auto) 83.8 Lymph % (Auto) 9.7 [place] % (Auto) 6.3 Eos % (Auto) 0.0 Baso % (Auto) 0.0 Neut # (Auto) 7.10 H Lymph # (Auto) 0.82 L [place] # (Auto) 0.53 Eos # (Auto) 0.00 Baso # (Auto) 0.00 Immature Gran # (Auto) 0.02 Sodium 140 Potassium 4.3 Chloride 109 H Carbon Dioxide 20 L Anion Gap 11.0 BUN 66 H Creatinine 2.37 H D Est Cr Clr Drug Dosing 20.2 Est GFR ( Amer) 29.5 Est GFR (Non-Af Amer) 25.5 BUN/Creatinine Ratio 27.9 H Glucose 133 H Estimat Average Glucose 111 Hemoglobin A1c 5.5 Calcium 7.9 L Total Bilirubin 0.4 AST 20 ALT 34 Alkaline Phosphatase 62 Total Protein 6.3 L Albumin 2.8 L Globulin 3.5 Albumin/Globulin Ratio 0.8 L (1) Pneumonia Laterality: unspecified laterality Lung location: unspecified part of lung Pneumonia type: due to unspecified organism Qualified Code(s): J18.9 - Pneumonia, unspecified organism
--- NOTE | 2020-09-12 13:53 | Hospitalist Progress Note ---
Date of Service September 12, 2020 Assessment & Plan (1) Acute hypoxemic respiratory failure: Multifactorial due to Pneumonia, pleural effusion and CHF CT chest showed interstitial pulmonary edema. Moderate bilateral pleural effusions with associated bilateral lower lobe opacities CXR showed moderate pulmonary edema with bilateral pleural effusions and associated bibasilar opacities COVID 19 and Influenza negative Received Levaquin and Zosyn on admission Continue antibiotic with Rocephin and doxycycline Blood cx no growth Continue oxygen supplement Continue monitor closely (2) Pleural effusion, bilateral: (3) Acute on chronic heart failure with reduced ejection fraction and diastolic dysfunction: CT chest showed interstitial pulmonary edema. [place] admission [id number] Received Lasix IV 60mg on admission Cardiology and nephrology on board, recommended IV lasix 60mg Cardiology on board an plan to transition to Oral lasix Continue Metoprolol Continue monitor I/O will put on Fluid restriction to 1800ml daily Will get a CXR today before consider to transition to PO lasix Acute kidney injury superimposed on chronic kidney disease stage 3 Creatinine on admission 2.7, then improved to 2.3 CT abd showed mild left renal atrophy with moderate scarring within the mid to upper pole of the left kidney. No hydronephrosis. Nephrology on board renal u/s showed no hydronephrosis. Marked right renal atrophy. Moderate left renal scarring. Received lasix 60mg IV BID, will discuss with nephrology about lasix Continue monitor BMP Elevated troponin Mostly related to acute hypoxia respiratory failure and acute kidney injury Troponin on admission 0.679 --> 0.647 EKG showed no acute ischemia changes Continue aspirin, metoprolol and statin Continue monitor closely Elevated Glucose Mostly due to chronic steroid therapy Hba1c pending Continue monitor BS Hx CVA Continue aspirin and statin Stable Aortic aneurysm CT showed 3 cm infrarenal abdominal aortic aneurysm. Mild dilatation of the left common iliac artery Will need outpatient surveillance DVT px on heparin subq Code status DNR Patient son requesting updates from providers. Mr. Lobito Galvez, contact #[phone]. Admission and Anticipated Discharge Date Admission Date: September 11, 2020 Subjective Pt was seen and examined for follow of SOB Lying in bed with no distress Pt said that his breathing improves He continues requiring oxygen supplement He said that cough improves Denies any chest pain, palpitation, dizziness and SOB Review of Systems Review of Systems: All systems reviewed & are unremarkable except as noted in Subjective Physical Exam Physical Exam: General- No acute distress Head- atraumatic Eyes- PERRL, EOMI, ENT- oropharynx clear Neck- supple, no JVD Lungs- diminished BS Heart- regular rhythm; no murmur Abdomen- normal bowel sounds, soft, nontender Extremities- no calf tenderness Neuro- alert, oriented x 3; PERRL, EOMI; no facial palsy; no dysarthria Skin- warm & dry Results & Data Results & Data ([facility]) Vital Signs (Past 12 Hours) Vital Signs Temp Pulse Resp BP Pulse Ox 09/12/20 12:02 36.5 C 75 18 149/87 H 93 09/12/20 07:47 36.6 C 65 18 153/82 H 95 09/12/20 04:09 36.4 C L 71 22 144/74 H 94
[2020-09-12] MEDS: hydrALAZINE TAB 50 MG TAB PO SCH ×2 (14:15→20:43)
--- NOTE | 2020-09-12 14:25 | XRay Report ---
XR chest 2V PA/lateral HISTORY: 75 years-old Male chf. pleural effusions acute shortness of breath. Congestive heart failur e with pleural effusions COMPARISON: Chest radiograph and chest CT 09/11/2020 TECHNIQUE: Portable AP view of the chest FINDINGS: Cardiac silhouette is enlarged. Pulmonary vascular congestion with reticular interstitial opacities, unchanged from comparison. Layering pleural effusions with bibasilar consolidation is also stable. No pneumothorax. Degenerative changes of the shoulders and spine. IMPRESSION: 1. Cardiomegaly with unchanged pulmonary edema. 2. Stable layering pleural effusions with bibasilar consolidation. ACT 112: Negative or not required by law. The above report was generated using voice recognition software. It may contain grammatical, syntax o r spelling errors. Electronically signed by: Naga Scales M.D. 09/12/2020 2:24 PM
[2020-09-12] MEDS ORDERED: FUROSEMIDE 60 MG in SYRINGE 0 ML IV ONE (15:30)
[2020-09-12] MEDS ORDERED: POTASSIUM CHLORIDE CRTAB 20 MEQ TABCR PO STA (20:10)
--- NOTE | 2020-09-12 20:11 | Nephrology Progress Note ---
Date of Service September 12, 2020 Assessment & Plan (1) Acute kidney injury superimposed on chronic kidney disease: He has got a baseline CKD 3, likely secondary to longstanding hypertension, NSAID use and cardiorenal syndrome Renal function fluctuates as per his volume status and diuretic use. Known R renal atrophy from previous u/s. baseline creatinine in 2020 1.5-1.7, or higher at times in low to mid 2's even. Admitted w/ fluid overload, hypoxia He is taking in minimal po >> for now no FR but will order low Na diet -resume Lasix 60 mg IV twice daily -cont to hold naproxen and losartan. -Daily STANDING weights, input and output charting, and BMP -will start standing K dose as well w/ lasix: 20 mEq x one now and qAM (2) Acute hypoxemic respiratory failure: Multifactorial from fluid overload, with likely chest infection -Continue on antibiotics(renally dosed) -Pulmonary toilet (3) Hypertension: Acutely fluid driven, anxiety and previous NSAID use Increase Lasix as above. Continue on amlodipine, hydralazine and metoprolol Admission and Anticipated Discharge Date Admission Date: September 11, 2020 Subjective seen on rounds at 1340; care coordinated w/ Dr Tiwari [id number]. remains on 5L NC: feeling tired, still coughing - dry. no chest pain/pressure, no n/v Review of Systems Review of Systems: All systems reviewed & are unremarkable except as noted in Subjective Physical Exam Constitutional: well developed, well nourished, + frail appearing and cooperative; no acute distress Eyes: EOM intact bilaterally ENMT: Ears: no external ear abnormality Nose: no external nose abnormality Mouth: + dry oral mucous membranes Neck: no nuchal rigidity Respiratory: normal respiratory effort and able to speak in complete sentences Auscultation: + diminished lung sounds (minimal air mvt BL) and + crackles (bibasilar R>L) kyphotic spine/thorax Cardiovascular: Rate/Rhythm: + irregularly irregular Extremities: + edema (trace pedal) Gastrointestinal (Abdomen): Inspection/Auscultation: normal bowel sounds Percussion/Palpation: abdomen soft; abdomen nontender Musculoskeletal: Extremities: strength 5/5 throughout Skin: no rashes, warm and dry Neurologic: burciaga, fluent speech, no tremor Psychiatric: Orientation: alert and oriented x 3 Affect: + flat affect Genitourinary: miranda w/ ample urine Results & Data ([facility]) Vital Signs (Past 12 Hours) Vital Signs Temp Pulse Resp BP Pulse Ox 09/12/20 15:59 36.6 C 67 18 149/83 H 96 09/12/20 12:02 36.5 C 75 18 149/87 H 93 Laboratory Results 09/12/20 06:05 09/12/20 06:05
[2020-09-12] MEDS: FUROSEMIDE 60 MG in SYRINGE 0 ML IV SCH (20:43)
[2020-09-12] MEDS: METOPROLOL SUCC 25MG EXT REL TAB PO SCH (20:45)
[2020-09-13] MEDS: cefTRIAXone SODIUM 2,000 MG in DEXTROSE 5% 50 ML IV SCH (05:00)
[2020-09-13] MEDS: HEPARIN SOD 5,000 UNIT/0.5 ML VIAL SQ SCH ×3 (06:01→20:26)
[2020-09-13] MEDS: NITROGLYCERIN 2% OINTMENT 30GM TUBE EXT SCH ×4 (06:06→23:09)
[2020-09-13] MEDS: ROSUVASTATIN CALCIUM 20 MG TAB PO SCH (07:59)
[2020-09-13] MEDS: FUROSEMIDE 60 MG in SYRINGE 0 ML IV SCH ×2 (07:59→20:25)
[2020-09-13] MEDS: ASPIRIN 81 MG ECTAB PO SCH (08:00)
[2020-09-13] MEDS: DOXYCYCLINE HYCLATE 100 MG CAP PO SCH ×2 (08:00→20:26)
[2020-09-13] MEDS: hydrALAZINE TAB 50 MG TAB PO SCH ×3 (08:00→20:26)
[2020-09-13] MEDS: amLODIPine BESYLATE 5 MG TAB PO SCH (08:00)
[2020-09-13] MEDS: predniSONE 1 MG TAB PO SCH (08:00)
[2020-09-13] MEDS: guaiFENesin 600 MG TABCR PO SCH ×2 (08:00→20:25)
[2020-09-13] MEDS ORDERED: POTASSIUM CHLORIDE PWD 20 MEQ PACK PO SCH (09:00)
[2020-09-13 09:22] LABS: BUN Creatinine Ratio 28.1 (10-20); Calcium 8.1 mg/dl (8.5-10.1); Creatinine Clr Calc Pharmacy 18.6 ml/min; Est GFR (African American) 26.8; Est GFR (Non-African American) 23.1; Potassium 3.7 mmol/L (3.5-5.1)
--- NOTE | 2020-09-13 09:34 | Nephrology Progress Note ---
Date of Service September 13, 2020 Assessment & Plan (1) Acute kidney injury superimposed on chronic kidney disease: He has baseline CKD 3, secondary to longstanding hypertension, NSAID use and cardiorenal syndrome Renal function fluctuates as per his volume status and diuretic use. Known R renal atrophy from previous u/s. baseline creatinine in 2020 1.5-1.7, or higher at times in low to mid 2's even. Admitted w/ fluid overload, hypoxia >> still on 5L NC He is taking in minimal po >> for now no FR but will order low Na diet >>continue Lasix 60 mg IV twice daily >>would NOT transition to po diuretics just yet -cont to hold naproxen and losartan. -cont Daily STANDING weights, input and output charting, and BMP: wt from 56 < 57.4 < (chair scale) 59.3; 3.4 L negative on the admission >>increased standing K dose as well w/ lasix: 20 mEq bid Care coordinated w/ Dr Tiwari (2) Acute hypoxemic respiratory failure: Multifactorial from fluid overload>>Chest CT 09/11 w/ plm edema, moderate BL pl effusions, BLL opacities possibly PNA Remains on 4L NC -Continue on antibiotics (renally dosed) -Pulmonary toilet -needs continued aggressive diuresis (3) Hypertension: Acutely fluid driven, anxiety and previous NSAID use Continue on amlodipine, hydralazine and metoprolol, lasix Admission and Anticipated Discharge Date Admission Date: September 11, 2020 Subjective no interval events; denies exertional dyspnea; had 2 BM so far today he tells me. does not mention pain. 02 down to 4L when I saw him this am Review of Systems Review of Systems: All systems reviewed & are unremarkable except as noted in Subjective Physical Exam Constitutional: well developed, well nourished, + frail appearing and cooperative; no acute distress Eyes: EOM intact bilaterally ENMT: Ears: no external ear abnormality Nose: no external nose abnormality Mouth: + dry oral mucous membranes Neck: no nuchal rigidity Respiratory: normal respiratory effort and able to speak in complete sentences Auscultation: + diminished lung sounds (minimal air mvt BL) and + crackles (bibasilar R>L) marked thoracic spinal scoliosis Cardiovascular: Rate/Rhythm: + irregularly irregular Extremities: + edema (trace pedal) Gastrointestinal (Abdomen): Inspection/Auscultation: normal bowel sounds Percussion/Palpation: abdomen soft; abdomen nontender Musculoskeletal: Extremities: strength 5/5 throughout Skin: no rashes, warm and dry Psychiatric: Orientation: alert and oriented x 3 Affect: + flat affect Genitourinary: miranda w/ ample light urine Results & Data ([facility]) Vital Signs (Past 12 Hours) Vital Signs Temp Pulse Pulse Resp BP Pulse Ox 09/13/20 03:31 36.5 C 70 24 161/81 H 97 09/13/20 00:04 65 09/13/20 00:02 36.4 C L 70 24 132/70 91 Laboratory Results 09/12/20 06:05 09/13/20 08:53
--- NOTE | 2020-09-13 11:56 | Cardiology Progress Note ---
Date of Service September 13, 2020 Assessment & Plan (1) Acute on chronic heart failure with reduced ejection fraction and diastolic dysfunction: Continue IV diuretic therapy, Lasix 60 mg twice daily. Appreciate nephrology input. Monitor daily weight, fluid balance, GFR, and electrolytes. Hydralazine titrated to 50 mg 3 times daily and amlodipine reduced to 5 mg daily 09/12/2020. (2) Pneumonia: Blood cultures negative x48 hours. Antibiotics per internal medicine. Supplement oxygen as needed. (3) Acute kidney injury superimposed on chronic kidney disease: Creatinine trending upward. Appreciate nephrology input. Continue Lasix as ordered. Avoid NSAIDs. (4) Pleural effusion, bilateral: IV Lasix as ordered. (5) HTN (hypertension): Hydralazine titrated to 50 mg 3 times daily 09/12/2020. Continue topical nitrates. Consider transition metoprolol succinate to carvedilol during hospitalization. . Admission and Anticipated Discharge Date Admission Date: September 11, 2020 Subjective Patient seen and examined at the bedside. Fluid balance -2 L. Repeat serum creatinine trending upward to 2.57. Respiratory status improved. Denies chest pain or palpitations. Telemetry revealing sinus rhythm. No sustained dysrhythmias. Requiring 5 L nasal cannula oxygen supplementation. Patient does not use supplemental oxygen at home. Chest x-ray unchanged 09/12/2020. Review of Systems Review of Systems: All systems reviewed & are unremarkable except as noted in Subjective Physical Exam Constitutional: well developed, well nourished and + ill appearing; no acute distress Respiratory: normal respiratory effort Auscultation: + diminished lung sounds (Bases bilaterally) and + rales (Bases bilaterally); no rhonchi and no wheezes Cardiovascular: Rate/Rhythm: regular rate and regular rhythm Heart Sounds: normal S1 and normal S2; no murmur Vessels: + JVD and radial pulses present Extremities: + edema (Mild bilateral pedal edema, left greater than right) Gastrointestinal (Abdomen): Inspection/Auscultation: abdomen normal to inspection and normal bowel sounds; abdomen not distended Percussion/Palpation: abdomen soft; abdomen nontender, no guarding and abdomen not rigid Neurologic: moves all extremities; no focal motor deficits Motor/Sensory: n o tremor Psychiatric: A+Ox3, euthymic affect Results & Data ([facility]) Vital Signs (Past 12 Hours) Vital Signs Temp Pulse Pulse Resp BP Pulse Ox 09/13/20 03:31 36.5 C 70 24 161/81 H 97 09/13/20 00:04 65 09/13/20 00:02 36.4 C L 70 24 132/70 91 (1) Pneumonia Laterality: unspecified laterality Lung location: unspecified part of lung Pneumonia type: due to unspecified organism Qualified Code(s): J18.9 - Pneumonia, unspecified organism
--- NOTE | 2020-09-13 19:07 | Hospitalist Progress Note ---
Date of Service September 13, 2020 Assessment & Plan (1) Acute hypoxemic respiratory failure: Multifactorial due to Pneumonia, pleural effusion and CHF CT chest showed interstitial pulmonary edema. Moderate bilateral pleural effusions with associated bilateral lower lobe opacities CXR showed moderate pulmonary edema with bilateral pleural effusions and associated bibasilar opacities COVID 19 and Influenza negative Received Levaquin and Zosyn on admission Continue antibiotic with Rocephin and doxycycline Blood cx no growth Continue oxygen supplement Continue monitor closely (2) Pleural effusion, bilateral: (3) Acute on chronic heart failure with reduced ejection fraction and diastolic dysfunction: CT chest showed interstitial pulmonary edema[place] [id number] Received Lasix IV 60mg on admission Cardiology and nephrology on board, recommended IV lasix 60mg Cardiology on board Repeat CXR showed cardiomegaly with unchanged pulmonary edema. Stable layering pleural effusions with bibasilar consolidation. cardiology recommended to continue IV lasix 60mg IV BID Continue Metoprolol Continue monitor I/O Continue Fluid restriction to 1800ml daily Clinically improves Acute kidney injury superimposed on chronic kidney disease stage 3 Creatinine on admission 2.7, then 2.3->2.[address] abd showed mild left renal atrophy with moderate scarring within the mid to upper pole of the left kidney. No hydronephrosis. Nephrology on board renal u/s showed no hydronephrosis. Marked right renal atrophy. Moderate left renal scarring. Continue IV lasix 40mg IV BID Continue monitor BMP Elevated troponin Mostly related to acute hypoxia respiratory failure and acute kidney injury Troponin on admission 0.679 --> 0.647 EKG showed no acute ischemia changes Continue aspirin, metoprolol and statin Continue monitor closely Elevated Glucose Mostly due to chronic steroid therapy Hba1c pending Continue monitor BS Hx CVA Continue aspirin and statin Stable Aortic aneurysm CT showed 3 cm infrarenal abdominal aortic aneurysm. Mild dilatation of the left common iliac artery Will need outpatient surveillance DVT px on heparin subq Code status DNR Patient son requesting updates from providers. Mr. Lobito Galvez, contact #[phone]. Admission and Anticipated Discharge Date Admission Date: September 11, 2020 Subjective Pt was seen and examined for follow up of SOB. Lying in bed with no distress. Pt said that he feels much better today He said that he has not been walking around and hard to tell if he develops any SOB with exertion He continues to require 4L NC currently Denies any chest pain, palpitation, dizziness and fever Review of Systems Review of Systems: All systems reviewed & are unremarkable except as noted in Subjective Physical Exam Physical Exam: General- No acute distress Head- atraumatic Eyes- PERRL, EOMI, ENT- oropharynx clear Neck- supple, no JVD Lungs- diminished BS Heart- regular rhythm; no murmur Abdomen- normal bowel sounds, soft, nontender Extremities- no calf tenderness Neuro- alert, oriented x 3; PERRL, EOMI; no facial palsy; no dysarthria Skin- warm & dry Results & Data Results & Data ([facility]) Vital Signs (Past 12 Hours) Vital Signs Temp Pulse Resp BP Pulse Ox 09/13/20 18:53 36.7 C 77 18 160/81 H 96 09/13/20 16:40 36.9 C 83 16 156/72 H 94 09/13/20 12:01 37.0 C 86 18 168/89 H 95
[2020-09-13] MEDS: POTASSIUM CHLORIDE PWD 20 MEQ PACK PO SCH (20:25)
[2020-09-13] MEDS: METOPROLOL SUCC 25MG EXT REL TAB PO SCH (20:26)
[2020-09-14] MEDS: cefTRIAXone SODIUM 2,000 MG in DEXTROSE 5% 50 ML IV SCH (05:12)
[2020-09-14] MEDS: HEPARIN SOD 5,000 UNIT/0.5 ML VIAL SQ SCH ×3 (05:12→20:45)
[2020-09-14] MEDS: NITROGLYCERIN 2% OINTMENT 30GM TUBE EXT SCH ×2 (05:12→12:26)
[2020-09-14 07:08] LABS: Hematocrit (blood only) 43.3 % (42-52); Hemoglobin 14.9 g/dL (14.0-18.0); Mean Corpuscular Hemoglobin 30.3 pg (25-34); Mean Corpuscular Hgb Conc 34.4 g/dL (32-36); Mean Corpuscular Volume 88.2 fL (80-100); Mean Platelet Volume 11.4 fL (7.4-10.4); Platelet Count 265 K/uL (130-400); RDW Coefficient of Variation 13.8 % (11.5-14.5); RDW Standard Deviation 44.9 fL (36.4-46.3); Red Blood Count 4.91 M/uL (4.7-6.1); White Blood Count 8.09 K/uL (4.8-10.8)
[2020-09-14 07:47] LABS: BUN Creatinine Ratio 33.9 (10-20); Calcium 8.2 mg/dl (8.5-10.1); Creatinine Clr Calc Pharmacy 20.8 ml/min; Est GFR (African American) 32.3; Est GFR (Non-African American) 27.9; Potassium 3.7 mmol/L (3.5-5.1)
[2020-09-14] MEDS: FUROSEMIDE 60 MG in SYRINGE 0 ML IV SCH ×2 (08:00→20:44)
[2020-09-14] MEDS: ASPIRIN 81 MG ECTAB PO SCH (08:01)
[2020-09-14] MEDS: ROSUVASTATIN CALCIUM 20 MG TAB PO SCH (08:01)
[2020-09-14] MEDS: amLODIPine BESYLATE 5 MG TAB PO SCH (08:01)
[2020-09-14] MEDS: DOXYCYCLINE HYCLATE 100 MG CAP PO SCH ×2 (08:01→20:44)
[2020-09-14] MEDS: guaiFENesin 600 MG TABCR PO SCH ×2 (08:01→20:44)
[2020-09-14] MEDS: POTASSIUM CHLORIDE PWD 20 MEQ PACK PO SCH ×3 (08:01→20:44)
[2020-09-14] MEDS: hydrALAZINE TAB 50 MG TAB PO SCH ×3 (08:01→20:43)
[2020-09-14] MEDS: predniSONE 1 MG TAB PO SCH (08:01)
--- NOTE | 2020-09-14 09:19 | Nephrology Progress Note ---
Date of Service September 14, 2020 Assessment & Plan (1) Acute kidney injury superimposed on chronic kidney disease: He has baseline but labile CKD 3, secondary to longstanding hypertension, chronic outpatient NSAID use and cardiorenal syndrome Renal function fluctuates as per his volume status and diuretic use. Known R renal atrophy from previous u/s, so his actual kidney function is more di minished than the EGFR would suggest. baseline creatinine in 2020 1.5-1.7, or higher at times in low to mid 2's even. Admitted w/ fluid overload, hypoxia >> still on 2-4L NC, but weaning down somewhat now He is taking in minimal po >> for now no FR but will order low Na diet. He does tell me he is drinking quite a bit >>continue Lasix 60 mg IV twice daily >>would NOT transition to po diuretics just yet--his x-ray from 2 days ago showed unchanged pulmonary edema, he is still under therapy for pneumonia and still requiring oxygen which he does not use at baseline -cont to hold naproxen and losartan; critical that he not resume naproxen or other standing NSAIDs after discharge. He may need some input from rheumatology on how to go about doing this in the setting of burned-out rheumatoid arthritis -cont Daily STANDING weights, input and output charting, and BMP: No standing weight today. Yesterday's wt 56 < 57.4 < (chair scale) 59.3; 3.4 L negative on the admission >> Further increased standing K dose as well w/ lasix: 20 mEq tid (2) Acute hypoxemic respiratory failure: Multifactorial from fluid overload>>Chest CT 09/11 w/ plm edema, moderate BL pl effusions, BLL opacities possibly PNA Remains on 4L NC -Continue on antibiotics (renally dosed) ->>Pulmonary toilet >>>> his scoliosis aches this particularly important -needs continued aggressive diuresis (3) Hypertension: Acutely fluid driven, anxiety and previous NSAID use Continue on amlodipine, hydralazine and metoprolol, lasix: >>>Increased amlodipine to customary outpatient dose 10 mg daily; further increase hydralazine to 75 mg 3 times daily -Will need PATIENCE inhibitor or ARB at some point, not during aggressive diuresis /diuretic titration though -No NSAIDs at discharge; please emphasize this with the patient Admission and Anticipated Discharge Date Admission Date: September 11, 2020 Subjective Seen on rounds at approximately 750. No concerns. States he is not moving enough to have a sense of whether he has exertional dyspnea. Does not notice much of a breathing concern at rest. He was on 4 L nasal cannula when I was in the room. Tolerating p.o.. Review of Systems Review of Systems: All systems reviewed & are unremarkable except as noted in Subjective Physical Exam Constitutional: well developed, well nourished, + frail appearing and cooperative; no acute distress Eyes: EOM intact bilaterally ENMT: Ears: no external ear abnormality Nose: no external nose abnormality Mouth: + dry oral mucous membranes Neck: no nuchal rigidity Respiratory: normal respiratory effort and able to speak in complete sentences Auscultation: + diminished lung sounds (minimal air mvt BL) and + crackles (bibasilar R>L; fewer today than yesterday) Cardiovascular: Rate/Rhythm: + irregularly irregular Extremities: + edema (trace pedal) Gastrointestinal (Abdomen): Inspection/Auscultation: normal bowel sounds Percussion/Palpation: abdomen soft; abdomen nontender Musculoskeletal: Extremities: strength 5/5 throughout Ankle: + deformity Markedly deformed upper extremity digits and marked thoracic spine scoliosis Skin: no rashes, warm and dry Neurologic: Moves all extremities, fluent speech, no tremor Psychiatric: A+Ox3, euthymic affect Results & Data ([facility]) Vital Signs (Past 12 Hours) Vital Signs Temp Pulse Resp BP Pulse Ox 09/14/20 07:22 36.6 C 67 20 163/88 H 98 09/14/20 03:11 36.9 C 67 18 151/83 H 96 09/13/20 23:02 36.5 C 73 18 156/84 H 96 Laboratory Results 09/14/20 06:10 09/14/20 06:10
[2020-09-14] MEDS ORDERED: amLODIPine BESYLATE 5 MG TAB PO SCH (09:30)
[2020-09-14] MEDS ORDERED: amLODIPine BESYLATE 5 MG TAB PO ONE (09:30)
[2020-09-14] MEDS ORDERED: hydrALAZINE HCL 25 MG TAB PO ONE (09:30)
--- NOTE | 2020-09-14 10:03 | Hospitalist Progress Note ---
Date of Service September 14, 2020 Assessment & Plan (1) Acute hypoxemic respiratory failure: Multifactorial due to Pneumonia, pleural effusion and CHF CT chest showed interstitial pulmonary edema. Moderate bilateral pleural effusions with associated bilateral lower lobe opacities CXR showed moderate pulmonary edema with bilateral pleural effusions and associated bibasilar opacities COVID 19 and Influenza negative Received Levaquin and Zosyn on admission Continue antibiotic with Rocephin and doxycycline Blood cx no growth Continue oxygen supplement Continue monitor closely (2) Pleural effusion, bilateral: (3) Acute on chronic heart failure with reduced ejection fraction and diastolic dysfunction: CT chest showed interstitial pulmonary [place] [id number] Received Lasix IV 60mg on admission Cardiology and nephrology on board, recommended IV lasix 60mg Cardiology on board Repeat CXR showed cardiomegaly with unchanged pulmonary edema. Stable layering pleural effusions with bibasilar consolidation. cardiology recommended to continue IV lasix 60mg IV BID Continue Metoprolol Continue monitor I/O Continue Fluid restriction to 1800ml daily Clinically improves Hypertension - also now managed by cardiology and nephrology -hydralazine dose and amlodipine being adjusted RYAN superimposed on CKD stage 3 Creatinine on admission 2.7, then 2.3->2.[address] abd showed mild left renal atrophy with moderate scarring within the mid to upper pole of the left kidney. No hydronephrosis. Nephrology on board renal u/s showed no hydronephrosis. Marked right renal atrophy. Moderate left renal scarring. Continue IV lasix Continue monitor BMP Elevated troponin Mostly related to acute hypoxia respiratory failure and acute kidney injury Troponin on admission 0.679 --> 0.647 EKG showed no acute ischemia changes Continue aspirin, metoprolol and statin Continue monitor closely Elevated Glucose Mostly due to chronic steroid therapy Hba1c pending Continue monitor BS Hx CVA Continue aspirin and statin Stable Aortic aneurysm CT showed 3 cm infrarenal abdominal aortic aneurysm. Mild dilatation of the left common iliac artery Will need outpatient surveillance DVT px on heparin subq Code status DNR Patient son, Mr. Lobito Galvez, can be contacted at #[phone] for updates. Admission and Anticipated Discharge Date Admission Date: September 11, 2020 Subjective Patient seen in follow-up of shortness of breath, CHF exacerbation He's currently sitting up in chair in NAD, using 2L of suppl. O2 Reports that he walked in hallways and didn't feel any chest pain or shortness of breath Cardiology and nephrology following Review of Systems Review of Systems: All systems reviewed & are unremarkable except as noted in HPI & below Constitutional: no fever and no chills Respiratory: + cough (only occasional, dry cough) and + dyspnea (much improved) Cardiovascular: no chest pain, no palpitations and no edema Physical Exam Physical Exam: General- elderly frail male, in no acute distress, on 2L via NC Head- atraumatic Eyes- PERRL, EOMI, ENT- oropharynx clear Neck- supple, no JVD Lungs- decrease BS, no wheezing, crackles, or rhonchi noted Heart- regular rhythm; no murmur Abdomen- nontender Extremities- no calf tenderness, +only minimal edema Neuro- alert, oriented x 3; PERRL, EOMI; no facial palsy; no dysarthria, moves extremities Skin- warm & dry Results & Data Results & Data ([facility]) Vital Signs (Past 12 Hours) Vital Signs Temp Pulse Resp BP Pulse Ox 09/14/20 07:22 36.6 C 67 20 163/88 H 98 09/14/20 03:11 36.9 C 67 18 151/83 H 96 09/13/20 23:02 36.5 C 73 18 156/84 H 96 Laboratory Results 09/14/20 09/14/20 09/13/20 Range/Units 06:10 06:10 20:11 WBC 8.09 (4.8-10.8) K/uL RBC 4.91 (4.7-6.1) M/uL Hgb 14.9 (14.0-18.0) g/dL Hct 43.3 (42-52) % MCV 88.2 (80-100) fL MCH 30.3 (25-34) pg MCHC 34.4 (32-36) g/dL RDW Std Deviation 44.9 (36.4-46.3) fL RDW Coeff of Bright 13.8 (11.5-14.5) % Plt Count 265 (130-400) K/uL MPV 11.4 H (7.4-10.4) fL Sodium 142 (136-145) mmol/L Potassium 3.7 (3.5-5.1) mmol/L Chloride 108 H (98-107) mmol/L Carbon Dioxide 29 (21-32) mmol/L Anion Gap 5.0 (3-11) BUN 75 H (7-18) mg/dl Creatinine 2.20 H D (0.6-1.4) mg/dl Est Cr Clr Drug Dosing 20.8 ml/min Est GFR ( Amer) 32.3 Est GFR (Non-Af Amer) 27.9 BUN/Creatinine Ratio 33.9 H (10-20) Glucose 86 (70-99) mg/dl POC Glucose 121 H (70-99) mg/dl Calcium 8.2 L (8.5-10.1) mg/dl Medications Administered Current Inpatient Medications Acetaminophen (Acetaminophen 325 Mg Tab) 325 mg PO Q6H PRN PRN Reason: Mild Pain Stop: 10/11/20 06:17 Albuterol (Albut/Ipratrop 3mg/0.5mg Neb 3 Ml Vial) 3 ml NEB QIDR PRN PRN Reason: Shortness Of Breath Or Wheezing Stop: 10/11/20 06:59 Amlodipine Besylate (Amlodipine Besylate 5 Mg Tab) 10 mg PO DAILY [facility] Stop: 10/14/20 09:29 Aspirin (Aspirin 81 Mg Ectab) 81 mg PO QAM [facility] Stop: 10/11/20 08:59 Last Admin: 09/14/20 08:01 Dose: 81 mg Documented by: Doxycycline Hyclate (Doxycycline Hyclate 100 Mg Cap) 100 mg PO BID [facility] Stop: 09/18/20 20:59 Last Admin: 09/14/20 08:01 Dose: 100 mg Documented by: Guaifenesin (Guaifenesin 600 Mg Tabcr) 600 mg PO Q12 [facility] Stop: 10/11/20 08:59 Last Admin: 09/14/20 08:01 Dose: 600 mg Documented by: Heparin Sodium (Porcine) (Heparin Sod 5,000 Unit/0.5 Ml Vial) 5,000 units SQ Q8 AMOR Stop: 10/11/20 06:17 Last Admin: 09/14/20 05:12 Dose: 5,000 units Documented by: Hydralazine HCl (Hydralazine Tab 50 Mg Tab) 50 mg PO TID [facility] Stop: 10/12/20 13:59 Last Admin: 09/14/20 08:01 Dose: 50 mg Documented by: Ceftriaxone Sodium 2,000 mg/ (Dextrose) 70 mls @ 100 mls/hr IV DAILY@0600 [facility]; Protocol Stop: 09/18/20 06:44 Last Infusion: 09/14/20 05:54 Dose: Infused Documented by: Promethazine HCl 12.5 mg/ (Sodium Chloride) 50.5 mls @ 202 mls/hr IV Q6H PRN PRN Reason: Nausea And Vomiting Stop: 10/11/20 06:17 Furosemide 60 mg/ Syringe 6 mls @ 4 mls/min IV BID [facility] Stop: 10/12/20 20:59 Last Admin: 09/14/20 08:00 Dose: 4 mls/min Documented by: Metoprolol Succinate (Metoprolol Succ 25mg Ext Rel Tab) 25 mg PO QPM [facility] Stop: 10/11/20 20:59 Last Admin: 09/13/20 20:26 Dose: 25 mg Documented by: Nitroglycerin (Nitroglycerin Sl 0.4 Mg/Tab Tab) 0.4 mg SL UD PRN PRN Reason: Chest Pain Stop: 10/11/20 06:17 Nitroglycerin (Nitroglycerin 2% Ointment 30gm Tube) 1 inch EXT Q6 [facility] Stop: 10/11/20 10:59 Last Admin: 09/14/20 05:12 Dose: 1 inch Documented by: Potassium Chloride (Potassium Chloride Pwd 20 Meq Pack) 20 meq PO TID [facility] Stop: 10/14/20 13:59 Prednisone (Prednisone 1 Mg Tab) 3 mg PO QAM [facility] Stop: 10/11/20 08:59 Last Admin: 09/14/20 08:01 Dose: 3 mg Documented by: Rosuvastatin Calcium (Rosuvastatin Calcium 20 Mg Tab) 40 mg PO QAM [facility] Stop: 10/11/20 08:59 Last Admin: 09/14/20 08:01 Dose: 40 mg Documented by: Tramadol HCl (Tramadol Hcl 50 Mg Tablet) 25 - 50 mg PO Q4H PRN PRN Reason: Pain Stop: 10/11/20 06:17
--- NOTE | 2020-09-14 12:24 | Cardiology Progress Note ---
Date of Service September 14, 2020 Assessment & Plan (1) Acute on chronic heart failure with reduced ejection fraction and diastolic dysfunction: Continue IV diuretic therapy, Lasix 60 mg twice daily. Monitor daily weight, fluid balance, GFR, and electrolytes. Discontinue topical nitrates. Add isosorbide monohydrate. Hydralazine titrated to 50 mg 3 times daily and amlodipine reduced to 5 mg daily 09/12/2020. (2) Pneumonia: Blood cultures negative. Antibiotics per internal medicine. Supplement oxygen as needed. (3) Acute kidney injury superimposed on chronic kidney disease: Serum creatinine trending downward today. Appreciate nephrology input. Continue Lasix as ordered. Avoid NSAIDs. (4) Pleural effusion, bilateral: IV Lasix as ordered. (5) HTN (hypertension): Hydralazine titrated to 50 mg 3 times daily 09/12/2020. Transition topical nitrates to oral isosorbide monohydrate. Consider transition metoprolol succinate to carvedilol during hospitalization pending clinical response. Admission and Anticipated Discharge Date Admission Date: September 11, 2020 Subjective Patient seen and examined at the bedside. Fluid balance -4.3 L. Respiratory status continues to improve. Oxygen requirements down from 5 L to 2 L today. No orthopnea or PND. Telemetry reveals sinus rhythm. No sustained dysrhythmias. Patient requesting assistance to walk in the hallways. Offers no other concerns/complaints at this time. Review of Systems Review of Systems: All systems reviewed & are unremarkable except as noted in Subjective Physical Exam Constitutional: well developed, well nourished and + ill appearing; no acute distress Respiratory: normal respiratory effort Auscultation: + diminished lung sounds (Bases bilaterally); no rales, no rhonchi and no wheezes Cardiovascular: Rate/Rhythm: regular rate and regular rhythm Heart Sounds: normal S1 and normal S2; no murmur Vessels: radial pulses present; no JVD Extremities: + edema (Trace bilateral pedal edema.) Gastrointestinal (Abdomen): Inspection/Auscultation: abdomen normal to inspection and normal bowel sounds; abdomen not distended Percussion/Palpation: abdomen soft; abdomen nontender, no guarding and abdomen not rigid Neurologic: moves all extremities; no focal motor deficits Motor/Sensory: no tremor Psychiatric: A+Ox3, euthymic affect Results & Data ([facility]) Vital Signs (Past 12 Hours) Vital Signs Temp Pulse Resp BP Pulse Ox 09/14/20 11:31 36.6 C 73 20 157/85 H 95 09/14/20 07:22 36.6 C 67 20 163/88 H 98 09/14/20 03:11 36.9 C 67 18 151/83 H 96 (1) Pneumonia Laterality: unspecified laterality Lung location: unspecified part of lung Pneumonia type: due to unspecified organism Qualified Code(s): J18.9 - Pneumonia, unspecified organism
[2020-09-14] MEDS: ISOSORBIDE MONO EXTENDED REL 30 MG TABCR PO SCH (12:57)
[2020-09-14] MEDS: METOPROLOL SUCC 25MG EXT REL TAB PO SCH (20:45)
[2020-09-15] MEDS: HEPARIN SOD 5,000 UNIT/0.5 ML VIAL SQ SCH ×2 (06:02→13:29)
[2020-09-15] MEDS: cefTRIAXone SODIUM 2,000 MG in DEXTROSE 5% 50 ML IV SCH (06:06)
[2020-09-15 07:13] LABS: Mean Corpuscular Hemoglobin 30.3 pg (25-34); Platelet Count 255 K/uL (130-400); RDW Coefficient of Variation 13.5 % (11.5-14.5); RDW Standard Deviation 44.1 fL (36.4-46.3); Red Blood Count 5.28 M/uL (4.7-6.1)
[2020-09-15 07:40] LABS: Calcium 8.4 mg/dl (8.5-10.1); Creatinine Clr Calc Pharmacy 21.1 ml/min; Est GFR (African American) 33.2; Est GFR (Non-African American) 28.6; Magnesium 2.5 mg/dl (1.8-2.4); Phosphorus 3.5 mg/dl (2.5-4.9)
[2020-09-15] MEDS: FUROSEMIDE 60 MG in SYRINGE 0 ML IV SCH (08:03)
[2020-09-15] MEDS: ASPIRIN 81 MG ECTAB PO SCH (08:03)
[2020-09-15] MEDS: ROSUVASTATIN CALCIUM 20 MG TAB PO SCH (08:03)
[2020-09-15] MEDS: POTASSIUM CHLORIDE PWD 20 MEQ PACK PO SCH ×2 (08:03→13:29)
[2020-09-15] MEDS: ISOSORBIDE MONO EXTENDED REL 30 MG TABCR PO SCH (08:03)
[2020-09-15] MEDS: DOXYCYCLINE HYCLATE 100 MG CAP PO SCH (08:03)
[2020-09-15] MEDS: hydrALAZINE TAB 50 MG TAB PO SCH ×2 (08:04→13:29)
[2020-09-15] MEDS: guaiFENesin 600 MG TABCR PO SCH (08:04)
[2020-09-15] MEDS: predniSONE 1 MG TAB PO SCH (08:04)
--- NOTE | 2020-09-15 08:26 | Hospitalist Progress Note ---
Date of Service September 15, 2020 Assessment & Plan (1) Acute hypoxemic respiratory failure: Multifactorial due to Pneumonia, pleural effusion and CHF CT chest showed interstitial pulmonary edema. Moderate bilateral pleural effusions with associated bilateral lower lobe opacities CXR showed moderate pulmonary edema with bilateral pleural effusions and associated bibasilar opacities COVID 19 and Influenza negative Received Levaquin and Zosyn on admission Continued antibiotic with Rocephin and doxycycline while inpt Blood cx no growth Continued oxygen supplement, now pt is on RA satting 97% Continue monitor closely Will DC on doxycyline to finish Abx treatment (2) Pleural effusion, bilateral: (3) Acute on chronic heart failure with reduced ejection fraction and diastolic dysfunction: CT chest showed interstitial pulmonary edema[place] admission 112[address] Received Lasix IV 60mg on admission Cardiology and nephrology on board, recommended IV lasix 60mg Cardiology on board Repeat CXR showed cardiomegaly with unchanged pulmonary edema. Stable layering pleural effusions with bibasilar consolidation. cardiology recommended to continue IV lasix 60mg IV BID Continue Metoprolol Continue monitor I/O Continue Fluid restriction to 1800ml daily Clinically improved Currently patient is on room air, satting 97%, without any shortness of breath. Per discussion with nephrology and cardiology, patient to be started on torsemide 60 mg tomorrow. Patient should get a BMP as outpatient in 1 week. Hypertension - also now managed by cardiology and nephrology -hydralazine dose and amlodipine being adjusted -Patient will be discharged on hydralazine 50 mg 3 times daily, amlodipine 5 mg daily and patient was also started on isosorbide mononitrate 60 mg daily RYAN superimposed on CKD stage 3 Creatinine on admission 2.7, then 2.3->2.[address] abd showed mild left renal atrophy with moderate scarring within the mid to upper pole of the left kidney. No hydronephrosis. Nephrology on board renal u/s showed no hydronephrosis. Marked right renal atrophy. Moderate left renal scarring. Continue IV lasix Continue monitor BMP Recommend BMP in 1 week as outpatient, follow-up with nephrology in 2 to 4 weeks. Elevated troponin Mostly related to acute hypoxia respiratory failure and acute kidney injury Troponin on admission 0.679 --> 0.647 EKG showed no acute ischemia changes Continue aspirin, metoprolol and statin Continue monitor closely Elevated Glucose Mostly due to chronic steroid therapy Hba1c 5.5% Continue monitor BS Hx CVA Continue aspirin and statin Stable Aortic aneurysm CT showed 3 cm infrarenal abdominal aortic aneurysm. Mild dilatation of the left common iliac artery Will need outpatient surveillance DVT px on heparin subq Code status DNR Patient son, Mr. Lobito Galvez, can be contacted at #[phone] for updates. Admission and Anticipated Discharge Date Admission Date: September 11, 2020 Subjective Patient seen in follow-up of shortness of breath, CHF exacerbation He's currently sitting up in chair in NAD, on RA satting 97% Reports that he walked in hallways and didn't feel any chest pain or shortness o f breath Patient is inquiring about going home Cardiology and nephrology following Plan to DC today Review of Systems Review of Systems: All systems reviewed & are unremarkable except as noted in HPI & below Constitutional: no fever and no chills Respiratory: no cough and no dyspnea Cardiovascular: no chest pain and no palpitations Gastrointestinal: no abdominal pain, no nausea and no vomiting Physical Exam Physical Exam: General- elderly frail male, in no acute distress, on RA Head- atraumatic Eyes- PERRL, EOMI, ENT- oropharynx clear Neck- supple, no JVD Lungs- CTAB, no wheezing, crackles, or rhonchi noted Heart- regular rhythm; no murmur Abdomen- nontender Extremities- no calf tenderness, +only minimal edema Neuro- alert, oriented x 3; PERRL, EOMI; no facial palsy; no dysarthria, moves extremities Skin- warm & dry Results & Data Results & Data ([facility]) Vital Signs (Past 12 Hours) Vital Signs Temp Pulse Pulse Resp BP Pulse Ox 09/15/20 07:13 36.5 C 64 18 158/90 H 98 09/15/20 03:45 36.6 C 79 18 129/84 93 09/14/20 23:12 36.3 C L 77 19 144/79 H 93 09/14/20 23:10 71 Laboratory Results 09/15/20 09/15/20 09/15/20 Range/Units 06:35 06:35 06:35 WBC 8.30 (4.8-10.8) K/uL RBC 5.28 (4.7-6.1) M/uL Hgb 16.0 (14.0-18.0) g/dL Hct 47.0 (42-52) % MCV 89.0 (80-100) fL MCH 30.3 (25-34) pg MCHC 34.0 (32-36) g/dL RDW Std Deviation 44.1 (36.4-46.3) fL RDW Coeff of Bright 13.5 (11.5-14.5) % Plt Count 255 (130-400) K/uL MPV 11.0 H (7.4-10.4) fL Sodium 141 (136-145) mmol/L Potassium 4.0 (3.5-5.1) mmol/L Chloride 106 (98-107) mmol/L Carbon Dioxide 27 (21-32) mmol/L Anion Gap 8.0 (3-11) BUN 62 H (7-18) mg/dl Creatinine 2.15 H (0.6-1.4) mg/dl Est Cr Clr Drug Dosing 21.1 ml/min Est GFR ( Amer) 33.2 Est GFR (Non-Af Amer) 28.6 BUN/Creatinine Ratio 29.0 H (10-20) Glucose 98 (70-99) mg/dl Calcium 8.4 L (8.5-10.1) mg/dl Phosphorus 3.5 (2.5-4.9) mg/dl Magnesium 2.5 H (1.8-2.4) mg/dl Tryptase (<11.0) mcg/L Procalcitonin 0.23 (0-0.5) ng/ml 09/11/20 Range/Units 02:20 WBC (4.8-10.8) K/uL RBC (4.7-6.1) M/uL Hgb (14.0-18.0) g/dL Hct (42-52) % MCV (80-100) fL MCH (25-34) pg MCHC (32-36) g/dL RDW Std Deviation (36.4-46.3) fL RDW Coeff of Bright (11.5-14.5) % Plt Count (130-400) K/uL MPV (7.4-10.4) fL Sodium (136-145) mmol/L Potassium (3.5-5.1) mmol/L Chloride (98-107) mmol/L Carbon Dioxide (21-32) mmol/L Anion Gap (3-11) BUN (7-18) mg/dl Creatinine (0.6-1.4) mg/dl Est Cr Clr Drug Dosing ml/min Est GFR ( Amer) Est GFR (Non-Af Amer) BUN/Creatinine Ratio (10-20) Glucose (70-99) mg/dl Calcium (8.5-10.1) mg/dl Phosphorus (2.5-4.9) mg/dl Magnesium (1.8-2.4) mg/dl Tryptase 6.3 (<11.0) mcg/L Procalcitonin (0-0.5) ng/ml Medications Administered Current Inpatient Medications Acetaminophen (Acetaminophen 325 Mg Tab) 325 mg PO Q6H PRN PRN Reason: Mild Pain Stop: 10/11/20 06:17 Albuterol (Albut/Ipratrop 3mg/0.5mg Neb 3 Ml Vial) 3 ml NEB QIDR PRN PRN Reason: Shortness Of Breath Or Wheezing Stop: 10/11/20 06:59 Amlodipine Besylate (Amlodipine Besylate 5 Mg Tab) 10 mg PO DAILY [facility] Stop: 10/14/20 09:29 Aspirin (Aspirin 81 Mg Ectab) 81 mg PO QAM [facility] Stop: 10/11/20 08:59 Last Admin: 09/15/20 08:03 Dose: 81 mg Documented by: Doxycycline Hyclate (Doxycycline Hyclate 100 Mg Cap) 100 mg PO BID [facility] Stop: 09/18/20 20:59 Last Admin: 09/15/20 08:03 Dose: 100 mg Documented by: Guaifenesin (Guaifenesin 600 Mg Tabcr) 600 mg PO Q12 [facility] Stop: 10/11/20 08:59 Last Admin: 09/15/20 08:04 Dose: 600 mg Documented by: Heparin Sodium (Porcine) (Heparin Sod 5,000 Unit/0.5 Ml Vial) 5,000 units SQ Q8 [facility] Stop: 10/11/20 06:17 Last Admin: 09/15/20 06:02 Dose: 5,000 units Documented by: Hydralazine HCl (Hydralazine Tab 50 Mg Tab) 50 mg PO TID [facility] Stop: 10/12/20 13:59 Last Admin: 09/14/20 08:01 Dose: 50 mg Documented by: Ceftriaxone Sodium 2,000 mg/ (Dextrose) 70 mls @ 100 mls/hr IV DAILY@0600 [facility]; Protocol Stop: 09/18/20 06:44 Last Infusion: 09/15/20 07:01 Dose: Infused Documented by: Promethazine HCl 12.5 mg/ (Sodium Chloride) 50.5 mls @ 202 mls/hr IV Q6H PRN PRN Reason: Nausea And Vomiting Stop: 10/11/20 06:17 Furosemide 60 mg/ Syringe 6 mls @ 4 mls/min IV BID [facility] Stop: 10/12/20 20:59 Last Admin: 09/15/20 08:03 Dose: 4 mls/min Documented by: Metoprolol Succinate (Metoprolol Succ 25mg Ext Rel Tab) 25 mg PO QPM [facility] Stop: 10/11/20 20:59 Last Admin: 09/14/20 20:45 Dose: 25 mg Documented by: Nitroglycerin (Nitroglycerin Sl 0.4 Mg/Tab Tab) 0.4 mg SL UD PRN PRN Reason: Chest Pain Stop: 10/11/20 06:17 Nitroglycerin (Nitroglycerin 2% Ointment 30gm Tube) 1 inch EXT Q6 [facility] Stop: 10/11/20 10:59 Last Admin: 09/14/20 12:26 Dose: Not Given Documented by: Potassium Chloride (Potassium Chloride Pwd 20 Meq Pack) 20 meq PO TID [facility] Stop: 10/14/20 13:59 Last Admin: 09/15/20 08:03 Dose: 20 meq Documented by: Prednisone (Prednisone 1 Mg Tab) 3 mg PO QAM [facility] Stop: 10/11/20 08:59 Last Admin: 09/15/20 08:04 Dose: 3 mg Documented by: Rosuvastatin Calcium (Rosuvastatin Calcium 20 Mg Tab) 40 mg PO QAM [facility] Stop: 10/11/20 08:59 Last Admin: 09/15/20 08:03 Dose: 40 mg Documented by: Tramadol HCl (Tramadol Hcl 50 Mg Tablet) 25 - 50 mg PO Q4H PRN PRN Reason: Pain Stop: 10/11/20 06:17
[2020-09-15] MEDS ORDERED: amLODIPine BESYLATE 5 MG TAB PO SCH (09:00)
--- NOTE | 2020-09-15 10:27 | Nephrology Progress Note ---
Date of Service September 15, 2020 Assessment & Plan (1) Acute kidney injury superimposed on chronic kidney disease: He has baseline but labile CKD 3, secondary to longstanding hypertension, chronic outpatient NSAID use and cardiorenal syndrome Renal function fluctuates as per his volume status and diuretic use. Known R renal atrophy from previous u/s, so his actual kidney function is more di minished than the EGFR would suggest. baseline creatinine in 2020 1.5-1.7, or higher at times in low to mid 2's even. Admitted w/ fluid overload, hypoxia >> had significant 02 needs until today; now on RA and no sob He is taking in minimal po >> for now no FR but will order low Na diet. He does tell me he is drinking quite a bit >>>will change Lasix 60 mg IV twice daily to torsemide 60 mg daily starting tomorrow; since he's had lasix 60 mg IV already today, will give torsemide 30 mg x one dose this afternoon >>will lower K dose to 20 mEq bid >>ordered repeat CXR >> his CXR from 09/12 showed unchanged pulmonary edema, he is still under therapy for pneumonia and has only just stopped 02nc which he does not use at baseline -cont to hold naproxen and losartan; critical that he not resume naproxen or other standing NSAIDs after discharge. He may need some input from rheumatology on how to go about doing this in the setting of burned-out rheumatoid arthritis -cont Daily STANDING weights, input and output charting, and BMP: No standing weight today. Yesterday's wt 56 < 57.4 < (chair scale) 59.3; 3.4 L negative on the admission >> will d/c miranda RENAL d/c recs: -from renal standpiont he could be d/c -d/c on torsemide as above and current bp meds; defer to cardiology re nitrates and hydralazine dosing; cont to hold ARB at d/c -K dosing as above >>no nsaids >cont rheum f/u as above >recommend bmp w/in one week of d/c >recommend renal f/u in 2-4 wks Present on Admission?: Yes (2) HTN (hypertension): Acutely fluid driven, anxiety and previous NSAID use Continue on amlodipine, hydralazine and metoprolol >change up po diuretics as above >cont Increased amlodipine at customary outpatient dose 10 mg daily;cardiology prefers hydralazine dosed at 50 mg 3 times daily, not higher -Will need PATIENCE inhibitor or ARB at some point, not during aggressive diuresis /diuretic titration though -No NSAIDs at discharge; please emphasize this with the patient Present on Admission?: Yes Admission and Anticipated Discharge Date Admission Date: September 11, 2020 Subjective ambulated yesterday, denies exertional dyspnea; tolerating po Review of Systems Review of Systems: All systems reviewed & are unremarkable except as noted in Subjective Physical Exam Constitutional: well developed, + frail appearing and cooperative; no acute distress Eyes: EOM intact bilaterally ENMT: Ears: no external ear abnormality Nose: no external nose abnormality Mouth: + dry oral mucous membranes Neck: no nuchal rigidity Respiratory: normal respiratory effort Auscultation: + diminished lung sounds; no crackles, no rhonchi and no wheezes Cardiovascular: Rate/Rhythm: regular rate and regular rhythm Heart Sounds: + murmur Extremities: no edema Gastrointestinal (Abdomen): Inspection/Auscultation: normal bowel sounds Percussion/Palpation: abdomen soft; abdomen nontender and no guarding Musculoskeletal: Extremities: + joint enlargement, strength 5/5 throughout and + extremities dysmorphic Skin: no rashes, warm and dry Neurologic: [place], fluent speech, no tremor Psychiatric: A+Ox3, euthymic affect Genitourinary: miranda present Results & Data ([facility]) Vital Signs (Past 12 Hours) Vital Signs Temp Pulse Pulse Resp BP Pulse Ox 09/15/20 07:13 36.5 C 64 18 158/90 H 98 09/15/20 03:45 36.6 C 79 18 129/84 93 09/14/20 23:12 36.3 C L 77 19 144/79 H 93 09/14/20 23:10 71 Laboratory Results 09/15/20 06:35 09/15/20 06:35
--- NOTE | 2020-09-15 11:43 | Cardiology Progress Note ---
Date of Service September 15, 2020 Assessment & Plan (1) Acute on chronic heart failure with reduced ejection fraction and diastolic dysfunction: Discontinue IV Lasix. Torsemide 60 mg daily to begin in a.m. Repeat basic metabolic panel as an outpatient in 1 week. Titrate isosorbide monohydrate to 60 mg daily. Continue hydralazine 50 mg 3 times daily, and Toprol-XL. Amlodipine reduced to 5 mg daily 09/12/2020. (2) Pneumonia: Blood cultures negative. Antibiotics per internal medicine. (3) Acute kidney injury superimposed on chronic kidney disease: Serum creatinine continues to trend downward with negative fluid balance. Appreciate nephrology input. Continue Lasix as ordered. Avoid NSAIDs. (4) Pleural effusion, bilateral: Transition IV to oral diuretic therapy (5) HTN (hypertension): Titrate isosorbide monohydrate to 60 mg daily. Hydralazine titrated to 50 mg 3 times daily 09/12/2020. Consider transition of metoprolol to carvedilol during outpatient follow-up. Admission and Anticipated Discharge Date Admission Date: September 11, 2020 Subjective Patient seen and examined at the bedside. Feeling well from a respiratory perspective. Supplemental oxygen discontinued. Fluid balance -955 cc. Creatinine continues to trend downward. Blood pressure remains elevated. No chest discomfort or unusual shortness of breath. No palpitations, lightheadedness, dizziness, syncope, or near syncope. Telemetry reveals sinus rhythm with premature ventricular complexes. Ventricular bigeminy recorded overnight. Review of Systems 2 Review of Systems: All systems reviewed & are unremarkable except as noted in Subjective Physical Exam Constitutional: well developed, well nourished and + ill appearing; no acute distress Respiratory: normal respiratory effort; no respiratory distress Auscultation: + diminished lung sounds (Bases bilaterally); no crackles, no rales, no rhonchi and no wheezes Cardiovascular: Rate/Rhythm: regular rate and regular rhythm Heart Sounds: normal S1 and normal S2; no murmur Vessels: radial pulses present; no JVD Extremities: + edema (Trace bilateral pedal edema.) Gastrointestinal (Abdomen): Inspection/Auscultation: abdomen normal to inspection and normal bowel sounds; abdomen not distended Percussion/Palpation: abdomen soft; abdomen nontender, no guarding and abdomen not rigid Neurologic: moves all extremities; no focal motor deficits Motor/Sensory: no tremor Psychiatric: A+Ox3, euthymic affect Results & Data ([facility]) Vital Signs (Past 12 Hours) Vital Signs Temp Pulse Resp BP Pulse Ox 09/15/20 07:13 36.5 C 64 18 158/90 H 98 09/15/20 03:45 36.6 C 79 18 129/84 93 (1) Pneumonia Laterality: unspecified laterality Lung location: unspecified part of lung Pneumonia type: due to unspecified organism Qualified Code(s): J18.9 - Pneumonia, unspecified organism
[2020-09-15] MEDS ORDERED: ISOSORBIDE MONO EXTENDED REL 30 MG TABCR PO ONE (11:45)
[2020-09-15] MEDS ORDERED: TORSEMIDE 10 MG TAB PO ONE (13:30)
--- NOTE | 2020-09-15 14:06 | Discharge Summary ---
Date of Service September 15, 2020 Admission HPI Per Admitting Provider History obtained from patient, family, and records. Patient is a fair historian. Medical history significant for chronic systolic heart failure secondary to ischemic cardiomyopathy (EF 40 to 44%, TTE 2020), CAD as per records, valvular heart disease (mild to moderate TR, mild AR), pulmonary hypertension as per records, hypertension, hyperlipidemia, history CVA, CRI (baseline creatinine 1.7), rheumatoid arthritis on chronic steroid therapy, history of Cervantes's palsy as per records, past tobacco abuse. Last confinement November 2019 for acute left occipital CVA. 6 weeks ago patient noted shortness of breath symptoms along with weight gain. Outpatient chest x-ray showed mild CHF. Symptoms improved with outpatient Furosemide prescription, dose later reduced due to kidney dysfunction. Patient seen at [facility] Cardiology office 5 weeks ago following PCP referral for CHF. Patient already euvolemic as per documentation at the time of visit. CHF tools discussed as per documentation. Updated TTE results showed decreased EF of 40 to 44% from November 2019 TTE EF of 55 to 60%. Patient also referred to Nephrology for follow-up visit a few days ago. Patient has no recollection of discussions and instructions from recent o utpatient specialist appointments. Patient noted worsening shortness of breath the last two days with some fluid retention and moist cough symptoms. No fever, no chills. No chest pain. Denies aspiration. No recent COVID-19 contacts. Claims to be compliant with home meds. O2 sats noted to be 80s upon arrival at the ER. BiPAP initiated at the ER. Solu-Medrol and neb treatment given at the ER. 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 Admission Exam Per Admitting Provider GENERAL: Slightly uncomfortable, pleasant, minimal respiratory distress SKIN: Normal color, warm HEENT: [place] palpebral conjunctivae, no ptosis, dry buccal mucosa, BiPAP in place NECK : Supple, no tenderness CHEST : Decreased breath sounds, expiratory wheezes, no tenderness HEART : RRR, no obvious murmurs ABDOMEN: Some distention, nontender EXTREMITIES : Minimal LE swelling, no LE tenderness, no other conspicuous deformities noted NEUROLOGIC : Coherent, no facial asymmetry, chronic upper extremity joint deformities Principal Diagnosis Acute hypoxic respiratory failure Acute on chronic heart failure with reduced ejection fraction RYAN on CKD stage III Hypertension Pleural effusion Pneumonia Discharge Exam General- elderly frail male, in no acute distress, on RA Head- atraumatic Eyes- PERRL, EOMI, ENT- oropharynx clear Neck- supple, no JVD Lungs- CTAB, no wheezing, crackles, or rhonchi noted Heart- regular rhythm; no murmur Abdomen- nontender Extremities- no calf tenderness, +only minimal edema Neuro- alert, oriented x 3; PERRL, EOMI; no facial palsy; no dysarthria, moves extremities Skin- warm & dry Discharge Data Allergies Allergy/AdvReac Type Severity Reaction Status Date / Time PATIENCE Inhibitors AdvReac Intermediate Cough Verified 09/12/20 12:12 Consultations 09/11/20 03:04 ED Decision to Admit Stat 09/11/20 06:18 Consult Cardiology Routine Consult Nephrology Routine Ordered Studies 09/11/20 02:52 CT abd pelvis wo con Urgent IMPRESSION: 1. Marked right renal atrophy. Mild left renal atrophy with moderate scarring within the mid to upper pole of the left kidney. No hydronephrosis. No urinary calculi. 2. No acute process within the abdomen or pelvis on unenhanced exam. 3. 3 cm infrarenal abdominal aortic aneurysm. Mild dilatation of the left common iliac artery. 4. No bowel obstruction. CT chest diagnostic wo con Urgent IMPRESSION: 1. Interstitial pulmonary edema. 2. Moderate bilateral pleural effusions with associated bilateral lower lobe opacities which could reflect pneumonia or atelectasis. 3. Multiple mildly enlarged mediastinal lymph nodes which are likely reactive/related to pulmonary edema. 4. Moderate cardiomegaly. 09/11/20 19:53 US renal/blad retro comp Routine IMPRESSION: 1. No hydronephrosis. 2. Marked right renal atrophy. Moderate left renal scarring. Hospital Course (1) Acute hypoxemic respiratory failure: Multifactorial due to Pneumonia, pleural effusion and CHF CT chest showed interstitial pulmonary edema. Moderate bilateral pleural effusions with associated bilateral lower lobe opacities CXR showed moderate pulmonary edema with bilateral pleural effusions and associated bibasilar opacities COVID 19 and Influenza negative Received Levaquin and Zosyn on admission Continued antibiotic with Rocephin and doxycycline while inpt Blood cx no growth Continued oxygen supplement, now pt is on RA satting 97% Continue monitor closely Will DC on doxycyline to finish Abx treatment (2) Pleural effusion, bilateral: (3) Acute on chronic heart failure with reduced ejection fraction and diastolic dysfunction: CT chest showed interstitial pulmonary edema. [place]BNP [place] admission 232[address] Received Lasix IV 60mg on admission Cardiology and nephrology on board, recommended IV lasix 60mg Cardiology on board Repeat CXR showed cardiomegaly with unchanged pulmonary edema. Stable layering pleural effusions with bibasilar consolidation. cardiology recommended to continue IV lasix 60mg IV BID Continue Metoprolol Continue monitor I/O Continue Fluid restriction to 1800ml daily Clinically improved Currently patient is on room air, satting 97%, without any shortness of breath. Per discussion with nephrology and cardiology, patient to be started on torsemide 60 mg tomorrow. Patient should get a BMP as outpatient in 1 week. Hypertension - also now managed by cardiology and nephrology -hydralazine dose and amlodipine being adjusted -Patient will be discharged on hydralazine 50 mg 3 times daily, amlodipine 5 mg daily and patient was also started on isosorbide mononitrate 60 mg daily RYAN superimposed on CKD stage 3 Creatinine on admission 2.7, then 2.3->2.[address] abd showed mild left renal atrophy with moderate scarring within the mid to upper pole of the left kidney. No hydronephrosis. Nephrology on board renal u/s showed no hydronephrosis. Marked right renal atrophy. Moderate left renal scarring. Continue IV lasix Continue monitor BMP Recommend BMP in 1 week as outpatient, follow-up with nephrology in 2 to 4 weeks. Elevated troponin Mostly related to acute hypoxia respiratory failure and acute kidney injury Troponin on admission 0.679 --> 0.647 EKG showed no acute ischemia changes Continue aspirin, metoprolol and statin Continue monitor closely Elevated Glucose Mostly due to chronic steroid therapy Hba1c 5.5% Continue monitor BS Hx CVA Continue aspirin and statin Stable Aortic aneurysm CT showed 3 cm infrarenal abdominal aortic aneurysm. Mild dilatation of the left common iliac artery Will need outpatient surveillance DVT px on heparin subq Code status DNR Patient son, Mr. Lobito Galvez, can be contacted at #[phone] for updates. Total Time Total Time Spent Total Time Spent (In Minutes): 40 Total Time Includes: Examination of the Patient, Discharge Planning, Medication Reconciliation and Communication With Other Providers Discharge Plan Discharge Items Patient Disposition: Home - Self-Care Reason For Visit: RESP FAILURE Discharge Diagnosis: Acute hypoxic respiratory failure Acute on chronic heart failure with reduced ejection fraction RYAN on CKD stage III Hypertension Pleural effusion Pneumonia Activity: Per Instructions section Non-emergency contact: Primary Care Provider, Specialist and Manager [employer] Call non-emergency contact if: you have any medication questions and your symptoms worsen Follow-up/Referrals: Patricia Fong MD, PhD [Physician] - (Date & Time 10/07/2020 11:40 AM Provider Patricia Fong MD Department Nephrology, [facility] ) Jose Pereira DO [Primary Care Provider] - (Date & Time 09/20/2020 11:00 AM Provider Jose Pereira DO Department Family [facility] ) Diet: Heart Healthy and Low Sodium (2gm) Fluids: 1800ml (7 cups) Addtl Attending Provider Instructions: Follow-up with your primary care doctor, the appointment scheduled for you for September 20. You should get blood work, BMP done at this time. Watch your weight, weigh yourself every day and write down the numbers. If you gain weight 3 to 5 pounds overnight, will you healthcare providers. Make sure your diet is low in sodium/salt. Do not use NSAIDs such as naproxen, Motrin, as these are not good for your kidney function. Discuss further with your primary care doctor/christian education director other options. Follow-up with nephrology/kidney doctor, in 2 to 4 weeks. You will be contacted about the appointment. Your were started on a new medication, torsemide, take 60 mg daily, stop using Lasix/furosemide. Take isosorbide monohydrate 60 mg daily. For blood pressure also take hydralazine 50 mg 3 times a day. Your amlodipine dose was decreased to 5 mg daily. Recommend to monitor blood pressure at home, write down those numbers and bring the log of these numbers to your healthcare providers at your next appointments. Finish antibiotic treatment with doxycycline. Addtl Trauma Nurse Provider Instructions: Call your Primary Care doctor if any of the following symptoms or problems start or get worse: * Shortness of breath or difficulty breathing * Wake up at night short of breath * Chest pain * Cough * Swelling of your hands, feet, or legs * More fatigued or tired with your normal activity * Palpitations - sudden fast heart beats WEIGHT * Weigh yourself every morning after using the bathroom. * Use the same scale. * Wear the same amount of clothing. * Write your weight down on a chart. * Call your Primary Care doctor if you gain more than 2-3 pounds in 1-2 days. MEDICATIONS * Use this discharge instruction sheet for medication instructions. * Take your medications at the time your doctor ordered. * Do not skip a dose of your medicines. * If you miss a dose of medicine, take it as soon as possible, but DO NOT DOUBLE A DOSE. * Read your medicine information when you get home. * Know all of the side effects of your medicine. If in doubt, ask your pharmacist * Call your Primary Care doctor's office if you have any side effects. * Be sure all of your doctors know what medicine and herbs you take (including cold, flu, and herbal medicine). Take the following with you to your follow-up doctor appointments: * Weight Chart * Medication List * List of questions Do not drink excessive alcohol, beer or wine. Pending Studies at Discharge: No Stand-Alone Forms: My [facility], Smoking Cessation Medications and DC Order Prescriptions: New doxycycline hyclate 100 mg Capsule 100 mg PO BID 2 Days Qty: 4 RF: 0 hydralazine 50 mg Tablet 50 mg PO TID 21 Days Qty: 63 RF: 0 isosorbide mononitrate 60 mg Tablet Extended Release 24 Hr 60 mg PO QAM Qty: 30 RF: 0 potassium chloride 20 mEq Packet 20 meq PO TID 14 Days Qty: 30 RF: 0 torsemide 10 mg Tablet 60 mg PO QAM Qty: 30 RF: 0 guaifenesin [Mucinex] 600 mg Tablet Extended Release 12hr 600 mg PO Q12 Qty: 7 RF: 0 amlodipine 5 mg tablet 5 mg PO DAILY Qty: 14 RF: 0 hydralazine 50 mg tablet 50 mg PO TID Qty: 60 RF: 0 Continued prednisone 1 mg Tablet 3 - 4 mg PO QAM RF: 0 metoprolol succinate 25 mg Tablet Extended Release 24 Hr 25 mg PO QPM RF: 0 rosuvastatin 40 mg Tablet 40 mg PO QAM RF: 0 aspirin 81 mg Tablet,Delayed Release (Dr/Ec) 81 mg PO QAM RF: 0 Changed amlodipine 5 mg Tablet 5 mg PO DAILY Qty: 10 RF: 0 hydralazine 25 mg Tablet 50 mg PO TID 21 Days Qty: 126 RF: 0 Discontinued furosemide [Lasix] 40 mg Tablet 20 mg PO Q OTHER DAY RF: 0 naproxen 500 mg Tablet 500 mg PO DAILY RF: 0 Discharge Orders: Discharge Order (Routine); Ordered 09/15/20 Ordered By: Frederic Miranda Admission Data Admit Date/Time: 09/11/20 03:42 Attending Provider: Frederic Miranda Admit Provider: Lopez Rico Primary Care Provider: Jose Pereira Other Providers: Lopez Rico ; Mauricio Jamison ; Duke Haji ; Devendra Mulligan ; Per Winter ; Dutch Kendrick ; Dom Montejo ; Paula Munoz ; Jo Ann Diana ; Karrie Murillo ; Go Mcgill ; Patricia Fong ; Reynaldo Corona ; Arianna Hardin ; Shell Ortez ; Leon Al ; Kellie Kan ; Yuko Granda ; Mando Tiwari Other Interventions: Discharge Summary Assessment (RN) Last Done: 09/15/20 14:03
[2020-09-16] MEDS ORDERED: ISOSORBIDE MONO EXTENDED REL 60 MG TABCR PO SCH (09:00)
[2020-09-16] MEDS ORDERED: TORSEMIDE 10 MG TAB PO SCH (09:00)
== END 2020-09-15 14:45 | disposition home or self-care (01) | DRG 193 ==
LOC: ED 01:47 → 2S 03:42 → SUATTDRO 03:42 → 2S 05:39